=== PATIENT | male | born 1950 | race Caucasian/White ===

== ENCOUNTER 2016-10-31 22:07 | Inpatient (IN) | payer OTHER ==
[~2016-10-31] VITALS: Ht 177.8 cm; Wt 115.2 kg
[~2016-10-31 22:07] MED LIST: ADVIN25/60 INH; ALBUAER2; ALLO100T57 PO; AMLO-110 PO; CIPR0.3S4 OP; COLC0.6T54 PO; DIAZ10TA3 PO; HYDR2TAB2 PO; LINE1TAB6 PO; METF-384 PO; METO-217 PO; SIMV20TA2 PO
[2016-11-01 04:20] VITALS: BP 187/98; PULSE 84; O2SAT 92
[2016-11-01] MEDS ORDERED: ACETAMINOPHEN 325 MG TAB PO PRN (06:00)
[2016-11-01 07:13] LABS: HEMATOCRIT 36.2 % (42-52); MEAN CELL VOLUME 92.8 fL (80-100); MEAN CORPUSCULAR HGB CONC 33.4 g/dl (32-36); MEAN PLATELET VOLUME 10.8 fL (7.4-10.4); PLATELET COUNT 164 K/uL (130-400); WHITE BLOOD COUNT 5.59 K/uL (4.8-10.8)
[2016-11-01 07:26] LABS: INR 1.1 (0.9-1.1); PARTIAL THROMBOPLASTIN RATIO 1.1; PROTHROMBIN TIME (PATIENT) 11.8 SECONDS (9.0-12.0)
[2016-11-01 07:49] VITALS: BP 158/85; PULSE 67; TEMP 36.7; O2SAT 96
[2016-11-01 07:56] LABS: ALT/SGPT 21 U/L (12-78); AST/SGOT 15 U/L (15-37); BLOOD UREA NITROGEN 45 mg/dl (7-18); BUN/CREATININE RATIO 15.5 (10-20); CALCIUM 8.6 mg/dl (8.5-10.1); CARBON DIOXIDE 25 mmol/L (21-32); CHLORIDE 106 mmol/L (98-107); GLUCOSE 226 mg/dl (70-99); MAGNESIUM 2.1 mg/dl (1.8-2.4); POTASSIUM 4.5 mmol/L (3.5-5.1); SODIUM 141 mmol/L (136-145)
[2016-11-01 07:58] LABS: ALB/GLOB RATIO 1.1 (0.9-2); ALKALINE PHOSPHATASE 45 U/L (45-117)
[2016-11-01] MEDS ORDERED: OXYCODONE/ACETAMINOPHEN 10/325MG TAB PO ONE (08:46)
[2016-11-01] MEDS ORDERED: DIAZ10TA PO (08:50)
[2016-11-01] MEDS ORDERED: OXYC-88 PO (08:50)
[2016-11-01] MEDS ORDERED: INSULIN GLARGINE SOLOSTAR 100 UNITS/ML 3 ML PEN SC ONE ×2 (08:51→20:30)
[2016-11-01] MEDS ORDERED: PATIENT'S HEIGHT AND/OR WEIGHT NEEDED SCH (09:00)
[2016-11-01 09:04] VITALS: BMI 34.6
[2016-11-01] MEDS: SODIUM CHLORIDE 0.9% 1000ML 1,000 ML IV SCH ×2 (09:04→19:01)
[2016-11-01] MEDS ORDERED: AMLO-114 PO (09:08)
[2016-11-01] MEDS ORDERED: FENO145T26 PO (09:08)
[2016-11-01] MEDS ORDERED: ASPI-232 PO (09:08)
[2016-11-01] MEDS ORDERED: CLR10 PO (09:08)
[2016-11-01] MEDS ORDERED: LPT/20 PO (09:08)
[2016-11-01] MEDS ORDERED: PREG300C PO (09:08)
[2016-11-01] MEDS ORDERED: GLIP10TA10 PO (09:08)
[2016-11-01] MEDS ORDERED: VNTHFA/IN INH (09:08)
[2016-11-01] MEDS ORDERED: TORS5TAB10 PO (09:10)
[2016-11-01] MEDS ORDERED: AMLODIPINE BESYLATE 5 MG TAB PO ONE (09:12)
[2016-11-01] MEDS ORDERED: LORATADINE 10 MG TAB PO ONE (09:12)
[2016-11-01] MEDS ORDERED: FENOFIBRATE 145 MG TAB PO ONE (09:12)
[2016-11-01] MEDS ORDERED: METOPROLOL SUCC 50MG EXT REL TAB PO ONE (09:12)
[2016-11-01] MEDS ORDERED: PREGABALIN 150 MG CAP PO ONE (09:12)
[2016-11-01] MEDS ORDERED: ALBUTEROL HFA 8 GM INHALER INH ONE (09:12)
[2016-11-01] MEDS ORDERED: FLUTICASONE/SALMETEROL 250/50 (ADVAIR) 14 PUFF/1 INHALER INH ONE (09:12)
[2016-11-01] MEDS ORDERED: ATORVASTATIN 20 MG TAB PO ONE (09:12)
[2016-11-01] MEDS ORDERED: GLUCAGON FOR INJ 1 MG VIAL SQ PRN (09:15)
[2016-11-01] MEDS ORDERED: GLUCOSE 40% GEL 15 GM TUBE PO PRN (09:15)
[2016-11-01] MEDS ORDERED: GLUCOSE 10 TABS/TUBE PO PRN (09:15)
[2016-11-01] MEDS ORDERED: DEXTROSE 50% 50 ML SYR IV PRN (09:15)
--- NOTE | 2016-11-01 09:25 | History and Physical ---
History & Physical Date & Time of Service: Nov 01, 2016 at 09:24 . Chief Complaint: acute kidney injury . Primary Care Physician: Jack Stephenson MD . History of Present Illness Source: patient, clinic records, hospital records 66 YO male followed by Dr. Jack Biggs in [place]. History of ischemic heart disease, hypertension, DM, CKD III, and other problems noted below. Status post total colectomy for C difficile colitis with chronic high-volume stool output via ileostomy. Hospitalized at [facility] 1-2 weeks ago. Presented to ED with epistaxis and was admitted for several days. Patient unable to provide details of hospital stay. Presented to ED at [facility] last evening with recurrent epistaxis. Right nostril cauterized and packed. Labs revealed elevated serum creatinine of 3.43, significantly higher than his baseline. Patient was transferred to [facility] for further evaluation and management of his acute kidney injury. Status post total colectomy for C difficile colitis with chronic high-volume stool output via ileostomy. Patient states that he has been advised to drink at least 60 oz of fluids per day, but he has trouble keeping up with the recommended amount. Apparently started on torsemide when he was discharged from the hospital last week. Labs reviewed from [facility]. Baseline creatinine appears to run 1.3 - 1.7. Pt does not use any NSAID's, SAMMY inhibitors, ARB's. . Past Medical/Surgical History Medical Problems: (1) Alcohol abuse Status: Chronic (2) Aortic aneurysm Status: Chronic (3) C. difficile colitis Permanent Comment: s/p colectomy Status: Chronic (4) CAD (coronary artery disease) Status: Chronic (5) CKD (chronic kidney disease), stage III Status: Chronic (6) COPD (chronic obstructive pulmonary disease) Status: Chronic (7) Depression Status: Chronic (8) Diabetic neuropathy Status: Chronic (9) DM2 (diabetes mellitus, type 2) Status: Chronic (10) Gout Status: Chronic (11) History of left heart catheterization (LHC) Status: Chronic (12) HLD (hyperlipidemia) Status: Chronic (13) HTN (hypertension) Status: Chronic (14) Pacemaker Status: Chronic (15) PVD (peripheral vascular disease) Status: Chronic (16) FREIDA (renal artery stenosis) Status: Chronic (17) SSS (sick sinus syndrome) Status: Chronic (18) Tobacco abuse Status: Chronic Surgical Problems: (1) Colostomy status Status: Chronic (2) History of back surgery Status: Chronic . Family History noncontributory . Social History Smoking Status: Current Every Day Smoker Alcohol Use: heavy consumption in past, none recently Marital Status: Immunizations History of Influenza Vaccine: No History of Tetanus Vaccine?: Unknown History of Pneumococcal: Yes History of Hepatitis B Vaccine: Unknown Allergies Coded Allergies: Penicillins (Verified Allergy, Severe, "i ", 07/01/13) Home Medications Scheduled Albuterol Hfa (Ventolin Hfa), 2 PUFFS INH QID Allopurinol (Zyloprim), 200 MG PO DAILY Amlodipine (Norvasc), 10 MG PO DAILY Aspirin (Aspir-81), 81 MG PO DAILY Atorvastatin (Atorvastatin Calcium), 20 MG PO DAILY Fenofibrate (Tricor ), 145 MG PO DAILY Fluticasone Prop/Salmeterol (Advair Diskus 250/50 60 Dose), 1 PUFF INH BID Glipizide (Glipizide), 20 MG PO DAILY Loratadine (Claritin), 10 MG PO DAILY Metformin Hcl (Glucophage), 1,000 MG PO BID Metoprolol Succinate (Toprol Xl), 50 MG PO DAILY Oxycodone/Acetaminophen 10MG/325MG (Oxycodone/Acetaminophen 10MG/325MG), 1 TAB PO TID Pregabalin (Lyrica), 300 MG PO BID Torsemide (Torsemide), 5 MG PO DAILY Scheduled PRN Diazepam (Valium), 10 MG PO BID PRN for Anxiety Review of Systems Constitutional: No fever, No weight loss Eyes: No diplopia, No discharge, No worsening of vision ENT: No hearing loss Respiratory: + shortness of breath, No cough Cardiovascular: + chest pain (occasional), + edema Abdomen: + problem reported (high output via ileostomy), No nausea, No pain, No vomiting Musculoskeletal: + joint pain Genitourinary - Male: No dysuria, No hematuria Neurologic: + problem reported (chronic headaches) Psychiatric: + depression symptoms Endocrine: + excessive thirst, + excessive urination Hematologic / Lymphatic: + abnormal bleeding/bruising (bruises easilyi) Integumentary: No new/changing skin lesions, No rash Physical Exam Vital Signs Date Time Temp Pulse Resp B/P Pulse Ox O2 Delivery O2 Flow Rate FiO2 11/01/16 07:49 36.7 67 22 158/85 96 Room Air 11/01/16 04:20 84 20 187/98 92 Room Air General Appearance: WD/WN, no apparent distress Head: normocephalic, atraumatic Eyes: normal inspection, PERRL, EOMI, sclerae normal ENT: normal ENT inspection, hearing grossly normal, pharynx normal, + pertinent finding (edentulous; right nostril packed) Neck: supple, no adenopathy, thyroid normal, no JVD, trachea midline Respiratory/Chest: no respiratory distress, no accessory muscle use, + pertinent finding (diffuse mild wheezing) Cardiovascular: regular rate, rhythm, no gallop, no JVD, no murmur, + pertinent finding (trace pretibial edema) Abdomen/GI: normal bowel sounds, non tender, soft, no organomegaly Extremities/Musculoskelatal: normal inspection, no calf tenderness 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 (PERRL, EOMI, no facial palsy), no motor/sensory deficits (grossly intact), alert, oriented x 3, + depressed affect Skin: normal color, warm/dry, no rash Lymphatic: no adenopathy Diagnostics Laboratory Results Results Past 24 Hours Test 11/01/16 05:55 11/01/16 06:45 Range/Units White Blood Count 5.59 4.8-10.8 K/uL Red Blood Count 3.90 4.7-6.1 M/uL Hemoglobin 12.1 14.0-18.0 g/dL Hematocrit 36.2 42-52 % Mean Corpuscular Volume 92.8 80-100 fL Mean Corpuscular Hemoglobin 31.0 25-34 pg Mean Corpuscular Hemoglobin Concent 33.4 32-36 g/dl RDW Standard Deviation 47.5 36.4-46.3 fL RDW Coefficient of Variation 14.1 11.5-14.5 % Platelet Count 164 130-400 K/uL Mean Platelet Volume 10.8 7.4-10.4 fL Prothrombin Time 11.8 9.0-12.0 SECONDS Prothromb Time International Ratio 1.1 0.9-1.1 Activated Partial Thromboplast Time 28.0 21.0-31.0 SECONDS Partial Thromboplastin Ratio 1.1 Sodium Level 141 136-145 mmol/L Potassium Level 4.5 3.5-5.1 mmol/L Chloride Level 106 98-107 mmol/L Carbon Dioxide Level 25 21-32 mmol/L Anion Gap 10.0 3-11 mmol/L Blood Urea Nitrogen 45 7-18 mg/dl Creatinine 2.90 0.60-1.40 mg/dl Estimated GFR () 25.3 Estimated GFR (Non- 21.9 BUN/Creatinine Ratio 15.5 10-20 Random Glucose 226 70-99 mg/dl Calcium Level 8.6 8.5-10.1 mg/dl Magnesium Level 2.1 1.8-2.4 mg/dl Total Bilirubin 1.0 0.2-1 mg/dl Aspartate Amino Transf (AST/SGOT) 15 15-37 U/L Alanine Aminotransferase (ALT/SGPT) 21 12-78 U/L Alkaline Phosphatase 45 45-117 U/L Total Protein 6.4 6.4-8.2 gm/dl Albumin 3.3 3.4-5.0 gm/dl Globulin 3.1 2.5-4.0 gm/dl Albumin/Globulin Ratio 1.1 0.9-2 Diagnostic Radiology CXR pending. . EKG EKG pending . Impression Assessment and Plan ACUTE KIDNEY INJURY CKD III with baseline creatinine around 1.5. Creatinine last evening 3.43. TYREL may be due to volume depletion from combination of ileostomy output + diuretic therapy. Check FE Na. Check renal US. Hold torsemide. IV fluids. Consult Nephrology. EPISTAXIS 2 recent episodes of severe epistaxis. Right nostril cauterized / packed last night in [place] ED. Hold aspirin. Consult ENT for further recommendations. CORONARY ARTERY DISEASE Hold aspirin due to epistaxis. Continue metoprolol and amlodipine. HYPERTENSION Continue metoprolol and amlodipine. COPD Continue bronchodilators. DM TYPE 2 Hold oral agents due to acute illness / TYREL. Check Hgb A1C. Lantus / NovoLog per protocol. GOUT Continue allopurinol. CHRONIC PAIN Continue usual meds. DEPRESSION Offered Psychiatry consultation; patient declines. ANXIETY Continue diazepam PRN. HISTORY OF ALCOHOL ABUSE Denies recent consumption. Follow for signs / symptoms of withdrawal. VTE PROPHYLAXIS No anticoagulants due to epistaxis. SCD's. Ambulate. RESUSCITATION STATUS Full code. INCOMPLETE DATA Records from [facility] requested. DISPOSITION Admitted to Med-Surg Unit. Expected discharge to home. Medical follow-up with Dr. Stephenson. . VTE Prophylaxis VTE Risk Assessment Done? Y/N: Yes Risk Level: Moderate Given or contraindicated: SCD's Additional Copies To Jack Stephenson M.D.
--- NOTE | 2016-11-01 09:47 | NEPHROLOGY CONSULTATION ---
DATE OF CONSULTATION: 11/01/2016 ATTENDING OF RECORD: Dr. Deleon. REASON FOR CONSULTATION: TYREL. HISTORY OF PRESENT ILLNESS: This is a 66-year-old male who does not actively follow with nephrology who was seen by his family doctor yesterday after a recent hospitalization at [facility] for epistaxis, acute renal failure on chronic kidney disease, and chest pain. When speaking to the patient about his hospitalization, he appeared ambiguous in his statements and stated he was not exactly sure what they were doing. Patient presented with a nosebleed and they kept him there for 5 days and then discharged him. The patient does have a history of diabetes but states that he does not always take his medications, does not necessarily always checks his blood sugars as stating that he does not want the medications to control his life. The patient states he does have significant heart disease with a history of CABG in August 2016 as well as pacemaker placed in 2009. He is not sure why they placed the pacemaker and states that he is not on any blood thinners. The patient denies smoking cigarettes and just chews on cigars occasionally and does not inhale and occasionally takes NSAIDs for severe headache. When asked about alcohol intake, his reply was of course, but when further questioning, the patient was ambiguous with his statement of how much he actually was drinking and states that it depends on the day. When he was seen by Dr. Stephenson his family doctor yesterday, he started to have another nosebleed with feelings of chest heaviness and was sent to the Emergency Room. During the hospitalization in [place] last week, the patient's cardiac enzymes were elevated and chest x-ray showed cardiomegaly. He did require nasal packing to help control his nosebleed. The discharge summary from October 25 stated that they were treating him with Levaquin 500 mg a day and metoprolol 50 mg twice a day which are new medications. Creatinine was 1.79 on October 21, it was 3.14 on October 22, it was 2.8 on October 23, 2.59 on October 24, 2.43 on October 25, so overall, the patient's creatinine from October to April of 2016 was 1.5-1.7. The patient's creatinine went up to 2.2 on the , was 1.79, on the , went up to 3.14 on the , trended down to 2.43 on the , on the was back up to 3.7. An echo in 2013 showed an EF of 50-54% and inferior and inferolateral severe hypokinesis with grade 1 diastolic dysfunction. The patient was noted to have TYREL at [facility] yesterday and was transferred to [facility] for further evaluation. PAST MEDICAL HISTORY: An aortic aneurysm, history of heart disease with bypass and pacemaker, COPD, type 2 diabetes where patient admits he does not routinely check his blood sugars and/or routinely take his diabetic medications, gout, hypertension since the , peripheral vascular disease, history of renal artery stenosis, and sick sinus syndrome. PAST SURGICAL HISTORY: Bypass surgery, pacemaker placement, back surgery x2, and partial colectomy secondary to C. diff colitis after prolonged hospitalization in 2009 in [facility]. SOCIAL HISTORY: Smokes cigars occasionally. Positive alcohol use with a reply of course, but does not state how much he drinks. No drugs. He is . FAMILY HISTORY: No renal disease in family. REVIEW OF SYSTEMS: Positive fatigue. Denies shortness of breath. Denies chest pain. Denies nausea, vomiting. Denies diarrhea or constipation. Does have chronic swelling in the lower extremities. Has numbness on the left leg, status post back surgeries. All other review of systems otherwise negative. Denies any decrease in urination. No blood in the urine. CURRENT MEDICATIONS: Reviewed. HOME MEDICATIONS: Significant for torsemide 5 mg a day, Toprol-XL 50 mg b.i.d., metformin in which will be on hold, allopurinol 200 mg a day, Lyrica 300 mg twice a day, and Norvasc 10 mg a day. PHYSICAL EXAMINATION: VITAL SIGNS: Temperature 36.7, pulse 67, respiratory rate 22, blood pressure 158/85. Satting 96% on room air. GENERAL: Awake, alert, oriented x3. EYES: No scleral icterus. ENT: Moist mucous membranes. NECK: Supple. PULMONARY: Clear to auscultation. CARDIAC: Tender at chest area. The patient states tender ever since bypass surgery. 2/6 systolic murmur. ABDOMEN: Bowel sounds positive, soft, nontender. EXTREMITIES: +2 pitting edema in the lower extremities. NEUROLOGIC: Has some numbness on the left leg status post back surgery as well as numbness in the left arm status post shoulder surgery. DERMATOLOGIC: No rash or ulcers noted. LABORATORIES: White count is 5, H\T\H 12 and 36, platelet count is 164. Sodium level 141, potassium is 4.5, chloride is 106, bicarbonate is 25, BUN is 45, creatinine is 2.9, glucose 226, calcium is 8.6, mag is 2.1. T-bili is 1. Albumin is 3.3. INR is 1.1. Urine is pending. IMPRESSION AND PLAN: 1. Acute kidney injury on chronic kidney disease with baseline creatinine of 1.5-1.7 and had an insult with creatinine up to 3.14 during the previous hospitalization in [place] last week which improved to 2.43 and then went back up to 3.7 six days later and is currently 2.9 in the setting of diabetes, hypertension and recurrent nosebleeds. The patient likely has underlying chronic kidney disease from his diabetes and hypertension. The right kidney 12.1 cm and the left kidney 11.8 cm which were relatively normal on 2013. I am rechecking renal ultrasound. There is history of renal artery stenosis noted. The patient is a poor narrator and does not appear that he has ever had stents to his renal arteries; however, did have extensive workup in [facility] in 2009 as well as bypass surgery in [place] a year ago and perhaps during one of the cardiac catheterizations, the patient did have a possible stent and/or angioplasty. On review of his medical records, was unable to find any intervention for his renal arteries. We would like to check renal vascular Dopplers again during this hospitalization along with a renal ultrasound and I would like to check an echo his heart to see if there is any depressed ejection fraction, which may be contributing to his multiple episodes of acute kidney injury over the past week and a half. Unclear, the patient got any contrast during the [place] hospitalization. His creatinine did worse from 1.79 up to 3.14 in 24 hours; however, appeared to be trending back down. No indication for emergent dialysis at this time. 2. Gout. The patient is on allopurinol and we will check a uric acid level to help with assessment of volume status and we will adjust the allopurinol accordingly. 3. Diabetes, unclear how well controlled his diabetes is and we will check a hemoglobin A1c. The patient admits to not always taking his diabetic medications and/or checking his blood sugars. I would not give him any more metformin given his creatinine elevation up into the mid 2s. Unclear what his new baseline creatinine will be and would like to follow up with him in [place] after hospitalization to further workup his acute kidney injury/chronic kidney disease. For now, I would give a small rate of IV fluids while monitoring his lung status closely, does have edema in his lower extremities; however, I feel that the patient may have had some decreased perfusion to the kidneys. While at home may not necessarily be eating and drinking as well as he has had in the past. I appreciate consultation. HIWOT
[2016-11-01] MEDS: DIAZEPAM 5MG TAB PO PRN ×2 (09:52→21:31)
--- NOTE | 2016-11-01 10:29 | DIAGNOSTIC IMAGING REPORT ---
RENAL ULTRASOUND CLINICAL HISTORY: Acute kidney injury. COMPARISON STUDY: None. TECHNIQUE: Sonography of the kidneys and the urinary bladder was performed. FINDINGS: The right kidney measures 10.2 x 6 x 4.7 cm and the left measures 10.7 x 6.3 x 4.4 cm. There is no hydronephrosis. No calculi or masses are identified by sonography. Renal echogenicity, size and cortical thickness are normal. Neither ureteral jet was identified. Incidental note was made of possible fatty infiltration of the liver. IMPRESSION: No hydronephrosis. Unremarkable sonographic appearance of the kidneys. Electronically signed by: Maximilian Aguilar M.D. 11/01/2016 10:28 AM Dictated Date/Time: 11/01/2016 10:24 AM
--- NOTE | 2016-11-01 10:34 | DIAGNOSTIC IMAGING REPORT ---
DOPPLER ULTRASOUND OF THE RENAL ARTERIES CLINICAL HISTORY: Acute renal insufficiency. COMPARISON STUDY: Renal ultrasound dated 11/01/2016. TECHNIQUE: Doppler sonography of the renal arteries was performed to assess renal artery stenosis. Images are reviewed in the transverse and longitudinal planes. The examination is degraded by suboptimal patient cooperation and inability to breath-hold. FINDINGS: The kidneys demonstrate cortical atrophy and are without hydronephrosis. On the right, intrarenal arterial resistive indices range from 0.74 to 0.83. Intrarenal arterial waveforms are normal with brisk upstrokes. The proximal right renal artery was not well visualized. The right renal arterial waveform is normal, and velocities within the right renal artery measure up to 101 cm/sec. The right renal vein is patent. On the left, intrarenal arterial resistive indices range from 0.82 to 0.5. Intrarenal arterial waveforms are normal with brisk upstrokes. The proximal left renal artery was not visualized. The left renal arterial waveform is normal, and velocities within the left renal artery measure up to 102 cm/sec. The left renal vein is patent. The abdominal aorta is patent. Velocities within the abdominal aorta measure up to 82 cm/s. IMPRESSION: There is no sonographic evidence of renal artery stenosis. See above. Electronically signed by: Zak Gamble M.D. 11/01/2016 10:33 AM Dictated Date/Time: 11/01/2016 10:31 AM
[2016-11-01 10:55] VITALS: BP 149/79; PULSE 70
[2016-11-01] MEDS ORDERED: OXYCODONE/ACETAMINOPHEN 10/325MG TAB PO SCH (12:00)
[2016-11-01] MEDS: ALBUTEROL HFA 8 GM INHALER INH SCH ×3 (12:08→21:08)
[2016-11-01] MEDS ORDERED: PERFLUTREN LIPID MICROSPHERE (DEFINITY) IV ONE (12:09)
[2016-11-01] MEDS ORDERED: NITROGLYCERIN 0.4 MG SL PER TAB CHARGE SL PRN (13:15)
[2016-11-01] MEDS: INSULIN ASPART 100 UNITS/ML 3 ML PEN SC SCH ×3 (13:49→21:07)
[2016-11-01] MEDS: CLONIDINE HCL 0.1 MG TAB PO PRN (14:43)
--- NOTE | 2016-11-01 14:52 | ECHOCARDIOGRAM REPORT ---
*NOTICE TO RECEIVING [employer]Y This information is strictly Confidential and protected under [place] law. [place] law prohibits you from making any further disclosure of this information unless further disclosure is expressly permitted by the written consent of the person to whom it pertains or is authorized by law. A general authorization for the release of medical or other information is not sufficient for this purpose. Hospital accepts no responsibility if the information is made available to any other person, INCLUDING THE PATIENT. Interpretation Summary * Name: ASH MONIQUE Study Date: 11/01/2016 12:44 PM BP: 158/85 mmHg * Patient Location: [facility] HR: 67 * : 1950 (M/d/yyyy) Gender: Male Height: 70 in * Age: 66 yrs Ethnicity: CA Weight: 241 lb * Performed By: Rose Gupta RDCS * * Reason For Study: CHEST PAIN * BSA: 2.3 m2 * History: CHEST PAIN, HX OF CABG, HX OF PACEMAKER, CHECK EF * The study was technically adequate. * Compared to prior study, there is no significant change. * -- Conclusions -- * Ejection Fraction = 55-60%. * There is mild concentric left ventricular hypertrophy. * Apical wall motion abnormality may reflect pacemaker activation. * There is mild mitral regurgitation. * Mild aortic root dilatation. * Diastolic dysfunction, Grade II (pseudonormalization pattern). Procedure Details * A contrast injection of Definity was performed to improve assessment of LV function. * Contrast was injected into an intravenous site in the right arm. * One vial of Definity ultrasound contrast was diluted in normal saline to a total volume of 10 ml. A total of '2' ml of solution was administered during imaging. * Lot # [id number] of Definity utilized for procedure. * Expiration date SEP 21. * The attending nurse who injected the contrast agent was KEVYN THURMAN. * A complete two-dimensional transthoracic echocardiogram was performed (2D, M-mode, Doppler and color flow Doppler). Left Ventricle * The left ventricle is normal in size. * There is no thrombus. * There is mild concentric left ventricular hypertrophy. * Ejection Fraction = 55-60%. * Left ventricular systolic function is normal. * Apical wall motion abnormality may reflect pacemaker activation. Right Ventricle * The right ventricle is normal size. * The right ventricular systolic function is normal as assessed by tricuspid annular plane systolic excursion (TAPSE) (normal >1.5 cm). Atria * The left atrial size is normal. * Right atrial size is normal. * There is no evidence of atrial septal defect, but resolution does not allow assessment for a patent foramen ovale. Mitral Valve * The mitral valve is normal. * The mitral valve leaflets appear thickened, but open well. * There is no mitral valve stenosis. * There is mild mitral regurgitation. Tricuspid Valve * The tricuspid valve is normal. * There is no tricuspid stenosis. * Significant tricuspid regurgitation is absent. Aortic Valve * The aortic valve is trileaflet. * Aortic stenosis is absent. * There is no significant aortic regurgitation. Pulmonic Valve * The pulmonary valve is not well seen, but the Doppler examination is normal without significant regurgitation or stenosis. Great Vessels * Mild aortic root dilatation. Pericardium/Pleural * There is no pericardial effusion. Great Vessels * Normal inferior vena cava diameter and respiratory variation suggests normal central venous pressure. Left Ventricular Diastolic Function * Diastolic dysfunction, Grade II (pseudonormalization pattern). MMode 2D Measurements and Calculations IVSd 1.3 cm IVSs 1.9 cm LVIDd 5.7 cm LVIDs 4.4 cm LVPWd 1.3 cm LVPWs 1.6 cm IVS/LVPW 1.0 FS 22.4 % EDV(Teich) 161.5 ml ESV(Teich) 89.7 ml EF(Teich) 44.4 % EDV(cubed) 187.4 ml ESV(cubed) 87.7 ml EF(cubed) 53.2 % % IVS thick 49.6 % % LVPW thick 27.5 % LV mass(C)d 307.8 grams LV mass(C)dI 136.2 grams/m\S\2 LV mass(C)s 339.6 grams LV mass(C)sI 150.3 grams/m\S\2 SV(Teich) 71.8 ml SI(Teich) 31.8 ml/m\S\2 SV(cubed) 99.7 ml SI(cubed) 44.1 ml/m\S\2 Ao root diam 4.4 cm Ao root area 14.9 cm\S\2 LA dimension 3.3 cm LA/Ao 0.76 LVAd ap4 40.9 cm\S\2 LVLd ap4 10.0 cm EDV(MOD-sp4) 139.0 ml EDV(sp4-el) 141.4 ml LVAs ap4 25.0 cm\S\2 LVLs ap4 8.7 cm ESV(MOD-sp4) 62.9 ml ESV(sp4-el) 61.0 ml EF(MOD-sp4) 54.7 % EF(sp4-el) 56.8 % LVAd ap2 32.9 cm\S\2 LVLd ap2 9.4 cm EDV(MOD-sp2) 99.0 ml EDV(sp2-el) 98.2 ml LVAs ap2 20.3 cm\S\2 LVLs ap2 8.2 cm ESV(MOD-sp2) 43.1 ml ESV(sp2-el) 42.8 ml EF(MOD-sp2) 56.5 % EF(sp2-el) 56.4 % LVLd %diff -7.08 % EDV(MOD-bp) 122.1 ml LVLs %diff -6.18 % ESV(MOD-bp) 53.5 ml EF(MOD-bp) 56.2 % SV(MOD-sp4) 76.1 ml SI(MOD-sp4) 33.7 ml/m\S\2 SV(MOD-sp2) 55.9 ml SI(MOD-sp2) 24.7 ml/m\S\2 SV(MOD-bp) 68.6 ml SI(MOD-bp) 30.4 ml/m\S\2 SV(sp4-el) 80.4 ml SI(sp4-el) 35.6 ml/m\S\2 SV(sp2-el) 55.4 ml SI(sp2-el) 24.5 ml/m\S\2 Doppler Measurements and Calculations MV E max azael 104.3 cm/sec MV A max azael 96.9 cm/sec MV E/A 1.1 MV dec time 0.20 sec Ao V2 max 109.1 cm/sec Ao max PG 4.8 mmHg Ao max PG (full) 0.85 mmHg LV V1 max PG 3.9 mmHg LV V1 max 98.9 cm/sec
[2016-11-01 15:00] LABS: URINE APPEARANCE CLEAR (CLEAR); URINE BILIRUBIN NEG (NEG); URINE COLOR YELLOW; URINE EPITHELIAL CELL AUTO 0-5 /lpf (0-5); URINE NITRITE NEG (NEG); URINE PH 6.5 (4.5-7.5); URINE SPECIFIC GRAVITY 1.015 (1.000-1.030); UROBILINOGEN NEG (NEG); ZZUR CULT IF INDIC CLEAN CATCH NO
[2016-11-01 15:01] VITALS: BP 166/77; PULSE 74; TEMP 36.8; O2SAT 96
[2016-11-01 15:04] LABS: MANUAL MICROSCOPIC REQUIRED? NO; REVIEW REQ? NO
--- NOTE | 2016-11-01 15:21 | Progress Note ---
Subjective Date of Service: Nov 01, 2016. Subjective Pt evaluation today including: conversation w/ patient No bleeding from his nose since being packed last night. Objective Vital Signs Packing in place right nostril. No active bleeding. Date Time Temp Pulse Resp B/P Pulse Ox O2 Delivery O2 Flow Rate FiO2 11/01/16 15:01 36.8 74 20 166/77 96 Room Air 11/01/16 10:55 70 149/79 11/01/16 08:00 Room Air 11/01/16 07:49 36.7 67 22 158/85 96 Room Air 11/01/16 04:20 84 20 187/98 92 Room Air Physical Exam General Appearance: no apparent distress Laboratory Results Last 24 Hours Test 11/01/16 06:45 11/01/16 11:58 11/01/16 14:30 White Blood Count 5.59 K/uL Red Blood Count 3.90 M/uL Hemoglobin 12.1 g/dL Hematocrit 36.2 % Mean Corpuscular Volume 92.8 fL Mean Corpuscular Hemoglobin 31.0 pg Mean Corpuscular Hemoglobin Concent 33.4 g/dl RDW Standard Deviation 47.5 fL RDW Coefficient of Variation 14.1 % Platelet Count 164 K/uL Mean Platelet Volume 10.8 fL Prothrombin Time 11.8 SECONDS Prothromb Time International Ratio 1.1 Activated Partial Thromboplast Time 28.0 SECONDS Partial Thromboplastin Ratio 1.1 Sodium Level 141 mmol/L Potassium Level 4.5 mmol/L Chloride Level 106 mmol/L Carbon Dioxide Level 25 mmol/L Anion Gap 10.0 mmol/L Blood Urea Nitrogen 45 mg/dl Creatinine 2.90 mg/dl Estimated GFR () 25.3 Estimated GFR (Non- 21.9 BUN/Creatinine Ratio 15.5 Random Glucose 226 mg/dl Calcium Level 8.6 mg/dl Magnesium Level 2.1 mg/dl Total Bilirubin 1.0 mg/dl Aspartate Amino Transf (AST/SGOT) 15 U/L Alanine Aminotransferase (ALT/SGPT) 21 U/L Alkaline Phosphatase 45 U/L Total Protein 6.4 gm/dl Albumin 3.3 gm/dl Globulin 3.1 gm/dl Albumin/Globulin Ratio 1.1 Bedside Glucose 225 mg/dl Urine Color YELLOW Urine Appearance CLEAR Urine pH 6.5 Urine Specific [place] 1.015 Urine Protein NEG Urine Glucose (UA) 3+ Urine Ketones NEG Urine Occult Blood NEG Urine Nitrite NEG Urine Bilirubin NEG Urine Urobilinogen NEG Urine Leukocyte Esterase NEG Urine WBC (Auto) 0 /hpf Urine RBC (Auto) 0-4 /hpf Urine Hyaline Casts (Auto) 0 /lpf Urine Epithelial Cells (Auto) 0-5 /lpf Urine Bacteria (Auto) NEG Assessment and Plan Patient with multiple medical problems with the most acute being acute renal failure. He remains hypertensive and his Platelet count is 164. I will plan to remove his packing on 11/03/15, and then recommend that he be observed until 11/04/16. If he doesn't bleed, then he may be discharged (from an ENT perspective; he may have other comorbidities that mandate continued hospitalization. SHOULD HE BLEED AGAIN, I WILL RECOMMEND FOR TRANSFER TO [facility] FOR EMBOLIZATION BY INTERVENTIONAL RADIOLGY.
[2016-11-01 16:00] VITALS: O2SAT 96
[2016-11-01] MEDS: OXYCODONE/ACETAMINOPHEN 10/325MG TAB PO SCH ×2 (16:04→21:09)
[2016-11-01] MEDS ORDERED: INSULIN GLARGINE SOLOSTAR 100 UNITS/ML 3 ML PEN SC SCH (20:00)
[2016-11-01] MEDS: FLUTICASONE/SALMETEROL 250/50 (ADVAIR) 14 PUFF/1 INHALER INH SCH (21:07)
[2016-11-01] MEDS: PREGABALIN 150 MG CAP PO SCH (21:08)
[2016-11-01] MEDS: DOXYCYCLINE HYCLATE 100 MG CAP PO SCH (21:09)
[2016-11-01] MEDS: INSULIN GLARGINE SOLOSTAR 100 UNITS/ML 3 ML PEN SC SCH (21:30)
--- NOTE | 2016-11-01 22:47 | Progress Note ---
Medicine Progress Note Date & Time of Visit: Nov 01, 2016 at 15:39. Subjective The patient refuses to give me any history today. He states he doesn't know anything--he doesn't know if he is short of breath or if he has chest pain. He is cursing at me and yelling--he became angry when I asked him if his blood pressure usually runs high. History was obtained from the notes, taken together with the physical exam ( which was allowed), and other objective data. Objective Last 8 Hrs Date Time Temp Pulse Resp B/P Pulse Ox O2 Delivery O2 Flow Rate FiO2 11/01/16 15:01 36.8 74 20 166/77 96 Room Air 11/01/16 10:55 70 149/79 11/01/16 08:00 Room Air 11/01/16 07:49 36.7 67 22 158/85 96 Room Air Physical Exam: GEN: WNWD, in no acute distress, alert and appropriate, appears agitated HEENT: NC/AT, normal sclerae, nasal packing in place. CARDIO: reg rate, S1/2 heard without m/g/r LUNGS: CTA bilaterally, no crackles, rales or wheezes, good diaphragmatic excursion ABD: soft, non-tender, non-distended, no rebound or guarding EXTREMITY: RP and DP palpable 2+ bilat, no LE swelling or edema, extremities are warm and well-perfused NEURO: CN 2-12 grossly intact, no gross focal deficits. MUSC: developed musculature, moves all extremities equally. SKIN: warm and dry Laboratory Results: Last 24 Hours Test 11/01/16 06:45 11/01/16 11:58 11/01/16 14:30 White Blood Count 5.59 K/uL Red Blood Count 3.90 M/uL Hemoglobin 12.1 g/dL Hematocrit 36.2 % Mean Corpuscular Volume 92.8 fL Mean Corpuscular Hemoglobin 31.0 pg Mean Corpuscular Hemoglobin Concent 33.4 g/dl RDW Standard Deviation 47.5 fL RDW Coefficient of Variation 14.1 % Platelet Count 164 K/uL Mean Platelet Volume 10.8 fL Prothrombin Time 11.8 SECONDS Prothromb Time International Ratio 1.1 Activated Partial Thromboplast Time 28.0 SECONDS Partial Thromboplastin Ratio 1.1 Sodium Level 141 mmol/L Potassium Level 4.5 mmol/L Chloride Level 106 mmol/L Carbon Dioxide Level 25 mmol/L Anion Gap 10.0 mmol/L Blood Urea Nitrogen 45 mg/dl Creatinine 2.90 mg/dl Estimated GFR () 25.3 Estimated GFR (Non- 21.9 BUN/Creatinine Ratio 15.5 Random Glucose 226 mg/dl Calcium Level 8.6 mg/dl Magnesium Level 2.1 mg/dl Total Bilirubin 1.0 mg/dl Aspartate Amino Transf (AST/SGOT) 15 U/L Alanine Aminotransferase (ALT/SGPT) 21 U/L Alkaline Phosphatase 45 U/L Total Protein 6.4 gm/dl Albumin 3.3 gm/dl Globulin 3.1 gm/dl Albumin/Globulin Ratio 1.1 Bedside Glucose 225 mg/dl Urine Color YELLOW Urine Appearance CLEAR Urine pH 6.5 Urine Specific [place] 1.015 Urine Protein NEG Urine Glucose (UA) 3+ Urine Ketones NEG Urine Occult Blood NEG Urine Nitrite NEG Urine Bilirubin NEG Urine Urobilinogen NEG Urine Leukocyte Esterase NEG Urine WBC (Auto) 0 /hpf Urine RBC (Auto) 0-4 /hpf Urine Hyaline Casts (Auto) 0 /lpf Urine Epithelial Cells (Auto) 0-5 /lpf Urine Bacteria (Auto) NEG Urine Random Creatinine 78.0 mg/dl Urine Random Sodium 86 mEq/L Assessment & Plan 66 yoM recently released from [facility], presents to [facility] as a transfer from ER for recurrent epistaxis with acute renal failure. ACUTE KIDNEY INJURY CKD III with baseline creatinine around 1.5. Creatinine-->3.43-->2.9 TYREL may be due to volume depletion from combination of ileostomy output + diuretic therapy. FeNa was >2% Hold torsemide. IV fluids. Consult Nephrology. EPISTAXIS 2 recent episodes of severe epistaxis. Right nostril cauterized / packed last night in [place] ED. Hold aspirin. ENT plans to pull out sun am Doxy to cover staph/strep species while nasal packing is in place and while we are hospitalized If patient rebleeds, he will be transferred to [place]. ETOH USE [place] use of benzos as needed Diazepam PRN CORONARY ARTERY DISEASE Hold aspirin due to epistaxis. Continue metoprolol and amlodipine. HYPERTENSION Continue metoprolol and amlodipine. COPD Continue bronchodilators. DM TYPE 2 Hold oral agents due to acute illness / TYREL. Hgb [id number] Lantus / NovoLog per protocol. GOUT Continue allopurinol. CHRONIC PAIN Continue usual meds. DEPRESSION Offered Psychiatry consultation; patient declines. ANXIETY Continue diazepam PRN. HISTORY OF ALCOHOL ABUSE Denies recent consumption. Follow for signs / symptoms of withdrawal. VTE PROPHYLAXIS No anticoagulants due to epistaxis. SCD's. Ambulate. RESUSCITATION STATUS Full code. INCOMPLETE DATA Records from [facility] requested. DISPOSITION Admitted to Med-Surg Unit. Expected discharge to home. Medical follow-up with Dr. Stephenson. Current Inpatient Medications: Current Inpatient Medications Medications (Trade) Dose Ordered Sig/All Route Start Time Stop Time Status Last Admin Dose Admin Acetaminophen 650 mg 650 mg Q4H PRN PO 11/01/16 06:00 12/01/16 05:59 Sodium Chloride (Nss 1000ml) 1,000 ml @ 100 mls/hr Q10H IV 11/01/16 09:00 12/01/16 08:59 11/01/16 09:04 100 MLS/HR Diazepam (Valium Tab) 10 mg BID PRN PO 11/01/16 09:00 12/01/16 08:59 11/01/16 09:52 10 MG Oxycodone/ Acetaminophen (Percocet 10-325MG Tab) 1 tab TID PO 11/01/16 14:00 11/15/16 13:59 Insulin Glargine (Lantus Solostar Pen) 10 unit BID SC 11/01/16 20:00 12/01/16 19:59 Insulin Aspart (novoLOG ASPART) SLIDING SCALE G... ACHS SC 11/01/16 11:00 12/01/16 10:59 11/01/16 13:49 7 UNITS Glucose (Glucose 40% Gel) 15-30 GRAMS 15 GRAMS... UD PRN PO 11/01/16 09:15 12/01/16 09:14 Glucose (Glucose Chew Tab) 4-8 Tablets 4 Tabl... UD PRN PO 11/01/16 09:15 12/01/16 09:14 Dextrose (Dextrose 50% 50ML Syringe) 25-50ML OF 50% DW IV FOR... UD PRN IV 11/01/16 09:15 12/01/16 09:14 Glucagon (Glucagon Inj) 1 mg UD PRN SQ 11/01/16 09:15 12/01/16 09:14 Albuterol (Ventolin Hfa Inhaler) 2 puffs QID INH 11/01/16 12:00 12/01/16 11:59 11/01/16 12:08 2 PUFFS Amlodipine Besylate (Norvasc Tab) 10 mg DAILY PO 11/02/16 08:00 12/01/16 07:59 Atorvastatin Calcium (Lipitor Tab) 20 mg DAILY PO 11/02/16 08:00 12/01/16 07:59 Fenofibrate (Tricor Tab) 145 mg DAILY PO 11/02/16 08:00 12/01/16 07:59 Salmeterol Xinafoate/ Fluticasone (Advair Diskus 250/50 Inh) 1 puff BID INH 11/01/16 20:00 12/01/16 19:59 Loratadine (Claritin Tab) 10 mg DAILY PO 11/02/16 08:00 12/01/16 07:59 Metoprolol Succinate (Toprol Xl Tab) 50 mg DAILY PO 11/02/16 08:00 12/01/16 07:59 Pregabalin (Lyrica Cap) 300 mg BID PO 11/01/16 20:00 12/01/16 19:59 Allopurinol (Zyloprim Tab) 100 mg DAILY PO 11/02/16 08:00 12/02/16 07:59 Nitroglycerin (Nitrostat Tab) 0.4 mg PRN PRN SL 11/01/16 13:15 12/01/16 13:14 Clonidine HCl (Catapres Tab) 0.1 mg Q4H PRN PO 11/01/16 13:15 12/01/16 13:14 11/01/16 14:43 0.1 MG
[2016-11-02] VITALS (8 sets, daily range): BP systolic 124–165; BP diastolic 71–100; PULSE 64–81; TEMP 36.5–36.8; O2SAT 94–98
[2016-11-02] MEDS ORDERED: INSULIN ASPART 100 UNITS/ML 3 ML PEN SC ONE (01:00)
--- NOTE | 2016-11-02 02:09 | ENT CONSULTATION ---
DATE OF CONSULTATION: 11/01/2016 DOCTOR REQUESTING CONSULTATION: Dr. Carmen Moyer and Dr. Danyel Deleon. INDICATION FOR CONSULTATION: Epistaxis, right nostril. I THOROUGHLY REVIEWED DR. MOYER'S COMPREHENSIVE HISTORY AND PHYSICAL AND I WILL NOT ADD TO CHART BREANNA. HISTORY OF PRESENT ILLNESS: I interviewed this patient in room 452 during the lunch hour on November 01. The patient is an extremely vague historian. His primary reason for admission is acute renal injury. In talking to him, it appeared that he was admitted at [facility] from October 20 through October 25. He was admitted for epistaxis. He went home and he admitted to drinking beers. He does not really know how many he drank. On October 31, he had recurrence of right-sided epistaxis which required packing at [facility]. He was transferred to [facility] early in the morning of November 01 for acute renal injury with elevated creatinine of 3.4 compared to his baseline of 1.3-1.7. He has a host of serious medical conditions including heart disease, hypertension, and diabetes mellitus. 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 When I examined him, he was generally in good condition, although I will say he has a rather difficult personality. His packing was in place in his right nostril. There was no bleeding. PHYSICAL EXAMINATION: VITAL SIGNS: Blood pressure was elevated at his last readings and the highest blood pressure in the shift was 187/98 and the lowest was 149/79. ASSESSMENT AND PLAN: Epistaxis, right nostril, now stable via packing. I have talked with Dr. Carmen Moyer by phone. We both agreed that she will try to get his blood pressure down while attending to his renal injury. I will remove his packing on FridayNovember 03. If he does not bleed, then he may be discharged to home on November 04 with conservative measures that I will provide to him. Should he rebleed, Dr. Moyer and I have discussed the need for transfer to [place] where interventional radiology will perform embolization. [facility]ENTERAnirudh
[2016-11-02] MEDS: SODIUM CHLORIDE 0.9% 1000ML 1,000 ML IV SCH (05:04)
--- NOTE | 2016-11-02 07:07 | DIAGNOSTIC IMAGING REPORT ---
CHEST ONE VIEW PORTABLE CLINICAL HISTORY: acute kidney injury COMPARISON STUDY: 08/08/2013 FINDINGS: The right internal jugular catheter has been removed. There is a left subclavian dual-chamber central venous pacemaker. Heart is enlarged. There is aortic tortuosity. There are postsurgical changes of midline sternotomy. There are postsurgical changes involve the left shoulder. There is radiographic evidence of mild congestive failure/fluid overload. There is no focal pulmonary consolidation. There are no significant pleural effusions.[ IMPRESSION: Cardiomegaly and radiographic evidence of mild congestive failure/fluid overload. Electronically signed by: Devang Fatima M.D. 11/02/2016 7:06 AM Dictated Date/Time: 11/02/2016 7:05 AM
[2016-11-02] MEDS ORDERED: ASPIRIN 81 MG ECTAB PO SCH (08:00)
[2016-11-02] MEDS ORDERED: INSULIN GLARGINE PER UNIT 15 UNITS in SYRINGE 0 ML SC SCH (08:00)
[2016-11-02] MEDS ORDERED: ALLOPURINOL 100 MG TAB PO SCH (08:00)
[2016-11-02 08:13] LABS: HEMATOCRIT 35.7 % (42-52); MEAN CELL VOLUME 93.7 fL (80-100); MEAN CORPUSCULAR HEMOGLOBIN 31.5 pg (25-34); MEAN CORPUSCULAR HGB CONC 33.6 g/dl (32-36); MEAN PLATELET VOLUME 11.3 fL (7.4-10.4); PLATELET COUNT 180 K/uL (130-400); RED BLOOD COUNT 3.81 M/uL (4.7-6.1)
[2016-11-02] MEDS: FLUTICASONE/SALMETEROL 250/50 (ADVAIR) 14 PUFF/1 INHALER INH SCH ×3 (08:14→21:00)
[2016-11-02] MEDS: FENOFIBRATE 145 MG TAB PO SCH (08:14)
[2016-11-02] MEDS: ALBUTEROL HFA 8 GM INHALER INH SCH ×5 (08:14→21:00)
[2016-11-02] MEDS: METOPROLOL SUCC 50MG EXT REL TAB PO SCH (08:15)
[2016-11-02] MEDS: LORATADINE 10 MG TAB PO SCH (08:15)
[2016-11-02] MEDS: ATORVASTATIN 20 MG TAB PO SCH (08:16)
[2016-11-02] MEDS: AMLODIPINE BESYLATE 5 MG TAB PO SCH (08:17)
[2016-11-02] MEDS: PREGABALIN 150 MG CAP PO SCH ×3 (08:17→21:00)
[2016-11-02] MEDS: DOXYCYCLINE HYCLATE 100 MG CAP PO SCH ×3 (08:18→21:00)
[2016-11-02] MEDS: ALLOPURINOL 100 MG TAB PO SCH (08:18)
[2016-11-02] MEDS: OXYCODONE/ACETAMINOPHEN 10/325MG TAB PO SCH ×4 (08:18→21:00)
[2016-11-02] MEDS: INSULIN ASPART 100 UNITS/ML 3 ML PEN SC SCH ×4 (08:23→21:00)
[2016-11-02] MEDS: INSULIN GLARGINE SOLOSTAR 100 UNITS/ML 3 ML PEN SC SCH ×4 (08:24→21:07)
[2016-11-02 08:43] LABS: BUN/CREATININE RATIO 15.5 (10-20); CALCIUM 8.2 mg/dl (8.5-10.1); CREATININE 2.6 mg/dl (0.60-1.40); POTASSIUM 4.3 mmol/L (3.5-5.1); URIC ACID 5.7 mg/dl (2.6-7.2)
[2016-11-02 08:49] LABS: ESTIMATED AVERAGE GLUCOSE 177 mg/dl; HA1C FLAG Normal (Normal)
[2016-11-02] MEDS ORDERED: DIAZEPAM 5MG TAB PO ONE ×2 (09:33→19:45)
[2016-11-02] MEDS ORDERED: PHARMACY GLYCEMIC MGMT CONSULT SCH (09:41)
[2016-11-02] MEDS ORDERED: DIAZEPAM 5MG TAB PO SCH ×2 (09:45→14:00)
--- NOTE | 2016-11-02 09:58 | Pharmacy Progress Note ---
Glycemic Control Intl Consult Date of Service Nov 02, 2016. Scope Glycemic Pharmacist consulted by Dr Moyer on 11/02/16 for glycemic control and to write orders per [facility] inpatient glycemic control protocol Objective Weight (Kilograms): 109.400 Accuchecks BSG (last 24hrs): Test 11/01/16 11:58 11/01/16 16:20 11/01/16 20:05 11/02/16 01:12 Bedside Glucose 225 mg/dl (70-99) 270 mg/dl (70-99) 319 mg/dl (70-99) 205 mg/dl (70-99) Test 11/02/16 07:10 11/02/16 08:15 Random Glucose 224 mg/dl (70-99) Bedside Glucose 246 mg/dl (70-99) Laboratory Data (last 24hrs) Test 11/02/16 07:10 Anion Gap 11.0 mmol/L BUN/Creatinine Ratio 15.5 Blood Urea Nitrogen 40 mg/dl Creatinine 2.60 mg/dl Hemoglobin A1c 7.8 % Potassium Level 4.3 mmol/L Sodium Level 141 mmol/L White Blood Count 4.20 K/uL HbA1c Test 11/02/16 07:10 Hemoglobin A1c 7.8 % (4.5-5.6) H Recent Pertinent Medications Outpatient Anti-diabetic Regimen: * Glipizide 20mg PO daily * Metformin 1g PO BID * A1c = 7.8 % 11/02/16 The patient is currently receiving: * Basal insulin: Lantus 15 units every 12 hours * Correctional Insulin: Novolog Correction per scale ACHS Goal Range: Low 120 mg/dL - High 160 mg/dL Correction Factor: 20 mg/dL/unit * Prandial insulin: Per carb ratio of 1 unit per 10 grams CHO consumed * Oral Agents: On Hold Risk Factors for Insulin Resistance: * Infection: Doxycycline PO * Diet: AHA/ Dnaw1EF/ LowK+ Assessment & Plan ASSESSMENT: * ADA & AACE recommend a goal blood sugar range 140-180 mg/dl for the majority of critically ill & non-critically ill patients. However, more stringent targets may be selected in individual cases. For patient's age and A1c, will use 120-160mg/dL. * 66 yo type 2 DM, uncontrolled, A1c = 7.8%, only on orals as outpatient. Admitted from [facility] with ARF and Epistaxis. * Patient just received 3rd dose of Lantus this morning, I feel that 15 units BID is likely a good dose for him, and will reach steady state by tonight. Continue for now. * I will tighten CF and CR for more insulin coverage. PLAN FOR INPATIENT GLYCEMIC CONTROL: * Holding outpatient oral diabetes medications * Basal insulin with LANTUS 15 units SQ BID * Correctional Insulin with NOVOLOG per scale ACHS or Q6hrs while NPO * Goal Range: Low 120 mg/dL - High 160 mg/dL * CHANGE: Correction Factor: 18 mg/dL/unit * CHANGE: Nutritional / Prandial insulin per carb ratio of 1 unit per 6 grams CHO consumed * Please note that the plan above was derived based on current level of insulin resistance and hospital stress. These recommendations are appropriate for inpatient admission only. Plan of care upon discharge will need to be reassessed to avoid potential outpatient hypo/hyperglycemia. Thank you.
[2016-11-02] MEDS: DIAZEPAM 5MG TAB PO SCH ×3 (10:25→22:26)
[2016-11-02 11:37] LABS: BENZODIAZEPINE, URINE POS (NEG); COCAINE,URINE NEG (NEG); PHENCYCLIDINE, URINE NEG (NEG)
--- NOTE | 2016-11-02 16:04 | Progress Note ---
Medicine Progress Note Date & Time of Visit: Nov 02, 2016 at 10:43. Subjective got sleep last night feels better today Denies chest pain or shortness of breath today or overnight BP good overnight but elevated more this morning scheduling diazepam to deal with withdrawal I am hopeful the scheduled diazepam will mean he is less agitated and contribute to lower blood pressures moving forward If not, poss addition of clonidine, however, patient states "I have enough meds " Utox to screen for substances that may be contributing to renal failure Creat improved from 2.9 to 2.6 today with IVF overnight, however, CXR this morning shows some vol overload, so held IVF until Nephro reassessment this am. Plan for removal of Rhino Rocket in am tomorrow no anemia on CBC this am If bleeds then will transfer to [place] for cautery Cont Doxy BID for prophylaxis while packing in place. After review of all outside notes from recent hospitalization provided, I am seeing that this patient had two episodes of chest pain prior to arrival to [facility] on 10/21. He presented to the ER that day for epistaxis and was admitted. Serial troponin enzymes were mildly positive (0.10-->0.09), but he was also in renal failure and was being treated for acute on chronic CHF. There are no EKGs available for review. I do not see a Cardiology consult or a stress test performed. This patient has a h/o CABG on 08/20/15, with an TTE the following day revealing dilated ICM with discrete basal inferoseptal and inferior scarring and EF 50-55%. He was discharged on 10/25 after treatment for hypertroponemia, Hypertensive Urgency, Acute on chronic renal failure and epistaxis which was treated with a Rhino Rocket. On the discharge summary he was noted to be going home with shortness of breath and was worried how he was going to cut firewood at home as he uses wood to heat his house. He was also discharged with a creatinine of 2.4, which was above his baseline Then he reports going home, and notes reflect that he drank beer but he was not able to quantify how much. There was no discharge medication list provided from this recent hospitalization, however, it is possible that he was discharged on Demedex 5mg PO daily, which was reported in the plan from the FP office note on 10/31. He went to see Dr. Stephenson (PCP) that day for a hospital follow-up--creat outpatient that day was 3.7. He had a repeat episode of epistaxis and returned to ER, where a trop was 0.06 and creat was 3.43. It is not clear whether he was having chest pain or shortness of breath at that time; he was then transferred to [facility]. Since getting here yesterday morning, he was initially very rude and a poor historian. He refused to give most of the providers seeing him any information , or answer any questions clearly that were directed at him regarding current symptoms he might be experiencing. His diuretic was held and he was given IVF overnight with an improvement in his creat to 2.6 (on admission here was 2.9). However, CXR this morning showed some mild congestion, so the IVF were stopped pending Nephro re-evaluation. Based on this new information, will obtain an EKG, which was not performed yet this admission, and will obtain a troponin to ensure it is not elevated. I will not empirically treat for ACS at this point pending results of these studies, as he is asymptomatic with an TTE that does not reveal new wall motion abnormalities. Additionally, when his troponin was mildly elevated at the prior hospital, he was in renal failure in the setting of acute CHF. To my knowledge, there have been no further episodes of chest pain since the initial chest pain episodes on the . However, may involve Cardiology in am to evaluate for risk stratification efforts with his history of CABG and PM placement. I also do not believe he is in heart failure at this point as he clinically appears compensated. Objective Last 8 Hrs Date Time Temp Pulse Resp B/P Pulse Ox O2 Delivery O2 Flow Rate FiO2 11/02/16 08:24 36.5 67 16 151/83 97 Room Air Physical Exam: GEN: WNWD, in no acute distress, alert and appropriate, appears calm, ambulatory HEENT: NC/AT, normal sclerae, nasal packing in place. CARDIO: reg rate, S1/2 heard without m/g/r LUNGS: CTA bilaterally, no crackles, rales or wheezes, good diaphragmatic excursion ABD: soft, non-tender, non-distended, no rebound or guarding, colostomy bag in place EXTREMITY: RP and DP palpable 2+ bilat, no LE swelling or edema, extremities are warm and well-perfused NEURO: CN 2-12 grossly intact, no gross focal deficits. MUSC: developed musculature, moves all extremities equally. SKIN: warm and dry Laboratory Results: Last 24 Hours Test 11/01/16 11:58 11/01/16 14:30 11/01/16 16:20 11/01/16 20:05 Bedside Glucose 225 mg/dl 270 mg/dl 319 mg/dl Urine Color YELLOW Urine Appearance CLEAR Urine pH 6.5 Urine Specific [place] 1.015 Urine Protein NEG Urine Glucose (UA) 3+ Urine Ketones NEG Urine Occult Blood NEG Urine Nitrite NEG Urine Bilirubin NEG Urine Urobilinogen NEG Urine Leukocyte Esterase NEG Urine WBC (Auto) 0 /hpf Urine RBC (Auto) 0-4 /hpf Urine Hyaline Casts (Auto) 0 /lpf Urine Epithelial Cells (Auto) 0-5 /lpf Urine Bacteria (Auto) NEG Urine Random Creatinine 78.0 mg/dl Urine Random Sodium 86 mEq/L Test 11/02/16 01:12 11/02/16 07:10 11/02/16 08:15 Bedside Glucose 205 mg/dl 246 mg/dl White Blood Count 4.20 K/uL Red Blood Count 3.81 M/uL Hemoglobin 12.0 g/dL Hematocrit 35.7 % Mean Corpuscular Volume 93.7 fL Mean Corpuscular Hemoglobin 31.5 pg Mean Corpuscular Hemoglobin Concent 33.6 g/dl RDW Standard Deviation 47.8 fL RDW Coefficient of Variation 14.0 % Platelet Count 180 K/uL Mean Platelet Volume 11.3 fL Sodium Level 141 mmol/L Potassium Level 4.3 mmol/L Chloride Level 109 mmol/L Carbon Dioxide Level 21 mmol/L Anion Gap 11.0 mmol/L Blood Urea Nitrogen 40 mg/dl Creatinine 2.60 mg/dl Est Creatinine Clear Calc Drug Dose 35.5 ml/min Estimated GFR () 28.9 Estimated GFR (Non- 24.9 BUN/Creatinine Ratio 15.5 Random Glucose 224 mg/dl Estimated Average Glucose 177 mg/dl Hemoglobin A1c 7.8 % Uric Acid 5.7 mg/dl Calcium Level 8.2 mg/dl Total Creatine Kinase 184 U/L Assessment & Plan 66 yoM recently released from [facility], presents to [facility] as a transfer from ER for recurrent epistaxis with acute renal failure. ACUTE KIDNEY INJURY CKD III with baseline creatinine around 1.5. Creatinine-->3.43-->2.9-->2.6 today TYREL may be due to volume depletion from combination of ileostomy output + diuretic therapy. FeNa was >2%,poss 'ATN from recent hospitalization Hold torsemide. IV fluids-held after CXR revealed some congestion Appreciate Nephro recs EPISTAXIS 2 recent episodes of severe epistaxis. Right nostril cauterized / packed in [place] ED. Hold aspirin. ENT plans to pull out sun am Doxy to cover staph/strep species while nasal packing is in place and while we are hospitalized If patient rebleeds, he will be transferred to [place]. ETOH USE Hope use of benzos as needed Diazepam scheduled TID CORONARY ARTERY DISEASE s/p CABG in 2014 Hold aspirin due to epistaxis. Continue metoprolol and amlodipine. REcent episodes of chest pain, not present now. REpeat EKG reveals paced rhythm with abnormalities Troponin is negative Transfer to telemetry and consult cardiology in am. HYPERTENSION Continue metoprolol and amlodipine. Goal for scheduled diazepam is to reduce agitation and indirectly reduce BP COPD Continue bronchodilators. DM TYPE 2 Hold oral agents due to acute illness / TYREL. Hgb H3S-haznsak Lantus / NovoLog per protocol. GOUT Continue allopurinol. CHRONIC PAIN Continue usual meds. DEPRESSION Offered Psychiatry consultation; patient declines. ANXIETY Continue diazepam PRN. HISTORY OF ALCOHOL ABUSE Denies recent consumption. Follow for signs / symptoms of withdrawal. VTE PROPHYLAXIS No anticoagulants due to epistaxis. SCD's. Ambulate. RESUSCITATION STATUS Full code. DISPOSITION Admitted to Med-Surg Unit-transfer to telemetry for monitoring Expected discharge to home. Medical follow-up with Dr. Stephenson. Current Inpatient Medications: Current Inpatient Medications Medications (Trade) Dose Ordered Sig/All Route Start Time Stop Time Status Last Admin Dose Admin Acetaminophen (Tylenol Tab) 650 mg Q4H PRN PO 11/01/16 06:00 12/01/16 05:59 Oxycodone/ Acetaminophen (Percocet 10-325MG Tab) 1 tab TID PO 11/01/16 14:00 11/15/16 13:59 11/02/16 08:18 1 TAB Glucose (Glucose 40% Gel) 15-30 GRAMS 15 GRAMS... UD PRN PO 11/01/16 09:15 12/01/16 09:14 Glucose (Glucose Chew Tab) 4-8 Tablets 4 Tabl... UD PRN PO 11/01/16 09:15 12/01/16 09:14 Dextrose (Dextrose 50% 50ML Syringe) 25-50ML OF 50% DW IV FOR... UD PRN IV 11/01/16 09:15 12/01/16 09:14 Glucagon (Glucagon Inj) 1 mg UD PRN SQ 11/01/16 09:15 12/01/16 09:14 Albuterol (Ventolin Hfa Inhaler) 2 puffs QID INH 11/01/16 12:00 12/01/16 11:59 11/02/16 08:14 2 PUFFS Amlodipine Besylate (Norvasc Tab) 10 mg DAILY PO 11/02/16 08:00 12/01/16 07:59 11/02/16 08:17 10 MG Atorvastatin Calcium (Lipitor Tab) 20 mg DAILY PO 11/02/16 08:00 12/01/16 07:59 11/02/16 08:16 20 MG Fenofibrate (Tricor Tab) 145 mg DAILY PO 11/02/16 08:00 12/01/16 07:59 11/02/16 08:14 145 MG Salmeterol Xinafoate/ Fluticasone (Advair Diskus 250/50 Inh) 1 puff BID INH 11/01/16 20:00 12/01/16 19:59 11/02/16 08:14 1 PUFF Loratadine (Claritin Tab) 10 mg DAILY PO 11/02/16 08:00 12/01/16 07:59 11/02/16 08:15 10 MG Metoprolol Succinate (Toprol Xl Tab) 50 mg DAILY PO 11/02/16 08:00 12/01/16 07:59 11/02/16 08:15 50 MG Pregabalin (Lyrica Cap) 300 mg BID PO 11/01/16 20:00 12/01/16 19:59 11/02/16 08:17 300 MG Allopurinol (Zyloprim Tab) 100 mg DAILY PO 11/02/16 08:00 12/02/16 07:59 11/02/16 08:18 100 MG Nitroglycerin (Nitrostat Tab) 0.4 mg PRN PRN SL 11/01/16 13:15 12/01/16 13:14 Clonidine HCl (Catapres Tab) 0.1 mg Q4H PRN PO 11/01/16 13:15 12/01/16 13:14 11/01/16 14:43 0.1 MG Doxycycline Hyclate (Vibramycin Cap) 100 mg BID PO 11/01/16 20:00 11/11/16 19:59 11/02/16 08:18 100 MG Insulin Aspart (novoLOG ASPART) SLIDING SCALE G... ACHS SC 11/01/16 22:00 12/01/16 21:59 11/02/16 08:23 8 UNITS Insulin Glargine (Lantus Solostar Pen) 15 unit BID SC 11/02/16 08:00 12/02/16 07:59 11/02/16 08:24 15 UNIT Miscellaneous Information (Consult Glycemic Management Pharmacy) 1 ea UD N/A 11/02/16 09:41 12/02/16 09:40 Diazepam (Valium Tab) 5 mg TID@1000,1600,2200 PO 11/02/16 10:00 12/02/16 09:59 11/02/16 10:25 5 MG
[2016-11-02] MEDS: CLONIDINE HCL 0.1 MG TAB PO PRN (23:37)
[2016-11-03] VITALS (11 sets, daily range): BP systolic 135–169; BP diastolic 68–115; PULSE 53–84; TEMP 36.5–36.6; O2SAT 94–98
[2016-11-03] MEDS: INSULIN ASPART 100 UNITS/ML 3 ML PEN SC SCH ×5 (01:53→20:46)
[2016-11-03 05:56] LABS: HEMATOCRIT 35.9 % (42-52); MEAN CELL VOLUME 92.5 fL (80-100); MEAN CORPUSCULAR HEMOGLOBIN 31.4 pg (25-34); MEAN PLATELET VOLUME 10.4 fL (7.4-10.4); PLATELET COUNT 170 K/uL (130-400); RED BLOOD COUNT 3.88 M/uL (4.7-6.1); WHITE BLOOD COUNT 5.19 K/uL (4.8-10.8)
[2016-11-03 06:28] LABS: BUN/CREATININE RATIO 15.2 (10-20); CALCIUM 8.3 mg/dl (8.5-10.1); CREATININE 2.7 mg/dl (0.60-1.40); MAGNESIUM 1.9 mg/dl (1.8-2.4); POTASSIUM 4.3 mmol/L (3.5-5.1)
[2016-11-03] MEDS ORDERED: NURSING VERBAL MED ORDER ONE ×2 (06:45→14:30)
[2016-11-03] MEDS ORDERED: OXYMETAZOLINE HCL 0.05% NA SPR 15 ML BTL PRN (07:00)
[2016-11-03] MEDS: LORATADINE 10 MG TAB PO SCH (07:25)
[2016-11-03] MEDS: FLUTICASONE/SALMETEROL 250/50 (ADVAIR) 14 PUFF/1 INHALER INH SCH ×2 (07:25→20:28)
[2016-11-03] MEDS: ALBUTEROL HFA 8 GM INHALER INH SCH ×4 (07:25→20:29)
[2016-11-03] MEDS: ATORVASTATIN 20 MG TAB PO SCH (07:26)
[2016-11-03] MEDS: PREGABALIN 150 MG CAP PO SCH ×2 (07:26→20:28)
[2016-11-03] MEDS: FENOFIBRATE 145 MG TAB PO SCH (07:27)
[2016-11-03] MEDS: OXYCODONE/ACETAMINOPHEN 10/325MG TAB PO SCH ×3 (07:27→20:28)
[2016-11-03] MEDS: METOPROLOL SUCC 50MG EXT REL TAB PO SCH ×2 (07:27→20:29)
[2016-11-03] MEDS: AMLODIPINE BESYLATE 5 MG TAB PO SCH (07:27)
[2016-11-03] MEDS: DOXYCYCLINE HYCLATE 100 MG CAP PO SCH ×2 (07:28→20:29)
[2016-11-03] MEDS: ALLOPURINOL 100 MG TAB PO SCH (07:28)
[2016-11-03] MEDS: INSULIN GLARGINE SOLOSTAR 100 UNITS/ML 3 ML PEN SC SCH ×2 (07:33→20:48)
[2016-11-03] MEDS: OXYMETAZOLINE HCL 0.05% NA SPR 15 ML BTL SCH ×2 (09:00→20:28)
[2016-11-03] MEDS: DIAZEPAM 5MG TAB PO SCH ×3 (11:11→21:52)
--- NOTE | 2016-11-03 11:15 | CARDIOLOGY CONSULTATION ---
DATE OF CONSULTATION: 11/03/2016 REFERRING PHYSICIAN: Dr. Carmen Moyer. REASON FOR CONSULTATION: Abnormal ECG, possible atrial fibrillation, chest pain, coronary artery disease with a prior coronary artery bypass grafting, and pacemaker. HISTORY OF PRESENT ILLNESS: The patient is a 66-year-old gentleman who is chronically followed by Dr. Biggs in [place]. He presented to the Emergency Department at [facility] with epistaxis for several days. He was noted to have elevated creatinine during recent hospitalization in [place]. His baseline creatinine runs 1.3-1.7. Creatinine of 3.43 noted on admission. The patient is a poor historian. He reports living alone in a secluded area. Admits to shortness of breath and caring firewood on a daily basis. Reports intermittent episodes of chest discomfort, which are not necessarily related to exertion. He has not used any sublingual nitroglycerin. He is quite vague about his symptoms. He states he does not pay much attention to his symptoms and lives his life day-to-day. He admits to noncompliance medications. Currently, a Rhino Rocket is in place. His hemoglobin is stable. Creatinine has stabilized - 2.70 this a.m. Denies chest pain since hospitalization at [facility]. Pacemaker interrogation was performed last night due to abnormal ECG performed at [place], which was read as atrial fibrillation. Pacemaker interrogation reveals underlying sinus rhythm and atrial paced rhythm. Telemetry currently reveals an atrial paced rhythm with frequent PVCs. There are 3 short salvos of what appears to be atrial flutter dated August 2015; however, EGMs were not available for review. The arrhythmias were recorded approximately 3 days after CABG with no recurrence in more than one year. Aspirin has been discontinued due to epistaxis. He is resting comfortably in his hospital bed. He offers no complaints at this time. REVIEW OF SYSTEMS: The pertinent positives noted above. A comprehensive 10-system review is otherwise negative. PAST MEDICAL HISTORY: 1. Chronic coronary artery disease with prior coronary artery bypass grafting at [facility] on 09/27/2015. 2. Diabetes type 2. 3. Dyslipidemia. 4. Pacemaker interrogation of probable atrial flutter -- short salvos. 5. C. diff colitis. 6. Dilated ascending aorta per previous 2D echos. 7. CKD stage III. 8. COPD. 9. Depression. 10. Diabetic neuropathy. 11. Hypertension. 12. Peripheral vascular disease. 13. Possible renal artery stenosis. 14. Sick sinus syndrome. PAST SURGICAL HISTORY: 1. Coronary artery bypass grafting x3 with GARIBAY to LAD, SVG to OM, and SVG to PDA on 08/24/2015. 2. Pacemaker implantation. 3. Colostomy. 4. Spinal surgery. FAMILY HISTORY: Negative for premature CAD or sudden cardiac . ALLERGIES: LISTED TO PENICILLIN. OUTPATIENT MEDICATIONS: 1. Aspirin 81 mg daily. 2. Albuterol inhaler 2 puffs q.i.d. 3. Allopurinol 200 mg daily. 4. Norvasc 10 mg daily. 5. Atorvastatin 20 mg daily. 6. Tricor 145 mg daily. 7. Advair Diskus 1 puff twice daily. 8. Glipizide 20 mg daily. 9. Claritin 10 mg daily. 10. Glucophage 1000 mg twice daily. 11. Toprol-XL 50 mg daily. 12. Percocet 3 times daily. 13. Lyrica 300 mg twice. 14. Torsemide 5 mg daily. 15. Valium 10 mg twice daily as needed. 16. Clonidine 0.1 mg tablet; however, scheduling was not recorded in the Epic record. SOCIAL HISTORY: He is a current everyday smoker, although he is vague about the amount of cigarettes he is currently using. He is admitting to approximately 1.5 pack per day. Denies alcohol use. ECG performed last evening demonstrates atrial paced rhythm with frequent premature ventricular complexes, ventricular couplets, and nonspecific baseline intraventricular conduction block. Chest x-ray demonstrates mild congestion. LABORATORY DATA: Troponin 0.038. Sodium 141, potassium 4.3, chloride 111, CO2 is 21, BUN is 41, creatinine is 2.70, and glucose 192. Hemoglobin A1c is 7.8. White blood cell count 5.19, hemoglobin is 12.2, and platelet count is 170. PT is 11.8 and INR is 1.1. UDS is positive for opiates and benzodiazepines. Telemetry demonstrates atrial paced rhythm, PVCs in a pattern of ventricular bigeminy. PHYSICAL EXAMINATION: VITAL SIGNS: Temperature 36.6 degrees centigrade, pulse 55 beats per minute and irregular, respiratory rate is 19 breaths per minute, blood pressure 157/90 and SaO2 is 98% on room air. GENERAL: NAD, chronically ill, overweight. THROAT: His mucous membranes are moist. No scleral icterus. Conjunctivae pink. NECK: Supple without JVD or HJR. No carotid bruit. HEART: Regular with a normal S1 and S2. No murmur, rub, or gallop appreciated. LUNGS: Clear bilateral without rales, rhonchi or wheeze. ABDOMEN: Soft and nontender. No rebound or guarding. Normal bowel sounds. EXTREMITIES: Warm and dry. There is no clubbing, cyanosis, or edema. NEUROLOGIC: Demonstrates no focal motor deficit. Cranial nerves are grossly intact. FINAL IMPRESSION: 1. A 66-year-old gentleman admitted with acute renal failure and epistaxis. Cardiology consultation requested due to concerns regarding atrial fibrillation on previous ECG taken at [facility]. I have reviewed that ECG, which demonstrates atrial paced rhythm and premature ventricular complexes. He continues to demonstrate atrial paced rhythm and premature ventricular contractions during current hospitalization. Pacemaker interrogation reveals short salvos of likely atrial flutter more than one year ago in the postoperative setting, which have not recurred. 2. Atypical chest discomfort with a history of chronic coronary artery disease and coronary artery bypass grafting x3. 3. Sick sinus syndrome, status post pacemaker implantation -- interrogation demonstrates normal function with 4.5 years battery life remaining. 4. Diastolic dysfunction without signs or symptoms of decompensated heart failure. Intravenous fluids discontinued due to concerns for mild volume overload in the setting of grade 2 diastolic dysfunction and chronic diuretic use. 5. Acute renal insufficiency superimposed on chronic kidney disease. 6. Epistaxis. PLAN AND RECOMMENDATIONS: Antiplatelet therapy will remain on hold until cleared by ear, nose and throat specialist. I will re-interrogate pacemaker to examine the EGMs of paroxysmal atrial dysrhythmias recorded in August 2015. The dysrhythmias were short lived in the postoperative CABG setting. I do not recommend oral anticoagulation at this time. In regard to his atypical chest pain, would recommend outpatient pharmacologic stress testing in the future; however, the patient will need to establish care with a logging tractor operator swamp near his home in the [facility]. This can be correlated through Dr. Bigsg's office. States he would be unwilling to travel to [place] for cardiology followup. His pacemaker should be interrogated every 3 months. From a medication perspective, I am titrating Toprol-XL to 50 mg twice daily to improve blood pressure control as well as suppression of frequent PVCs noted on dielectric embossing machine operator. Encouraged compliance with cardiovascular medications. Smoking cessation also recommended. Thank you for allowing me to take part in the care of your patient. HIWOT
--- NOTE | 2016-11-03 12:13 | Progress Note ---
Medicine Progress Note Date & Time of Visit: Nov 03, 2016 at 11:23. Subjective Pt reports persistent shortness of breath this morning at rest He states that he is more short of breath with exertion, also, however, he cannot quantify it because his neuropathy also plays a role there. He was transferred to telemetry overnight after an EKG concerning for arrythmia- ->frequent PVCs were noted overnight His pacemaker was interrogated this morning and was OK Cardiology evaluated him and increased his Toprol XL to BID to assist with PVC suppression and BL control Pt is requesting premedication with Valium prior to rhino rocket removal today. Creat is stable at 2.7-->discussed case with Nephro and will cont holding diuretic and avoid IVF at this time Possibly SOB will improve with rhino rocket removal? Objective Last 8 Hrs Date Time Temp Pulse Resp B/P Pulse Ox O2 Delivery O2 Flow Rate FiO2 11/03/16 08:01 94 Room Air 11/03/16 07:34 36.6 55 19 157/90 98 11/03/16 04:05 Room Air 11/03/16 03:45 36.6 53 20 145/79 95 Room Air Physical Exam: GEN: WNWD, in no acute distress, alert and appropriate, appears calm, ambulatory , eating lunch HEENT: NC/AT, normal sclerae, nasal packing in place in R nare CARDIO: reg rate, S1/2 heard without m/g/r LUNGS: CTA bilaterally, no crackles, rales or wheezes, good diaphragmatic excursion ABD: soft, non-tender, non-distended, no rebound or guarding, colostomy bag in place, BS EXTREMITY: RP and DP palpable 2+ bilat, no LE swelling or edema, extremities are warm and well-perfused NEURO: CN 2-12 grossly intact, no gross focal deficits. MUSC: developed musculature, moves all extremities equally. SKIN: warm and dry Laboratory Results: Last 24 Hours Test 11/02/16 11:25 11/02/16 16:25 11/02/16 17:00 11/02/16 20:00 Bedside Glucose 294 mg/dl 91 mg/dl 138 mg/dl Troponin I 0.038 ng/ml Test 11/03/16 01:49 11/03/16 05:25 11/03/16 06:48 Bedside Glucose 221 mg/dl 192 mg/dl White Blood Count 5.19 K/uL Red Blood Count 3.88 M/uL Hemoglobin 12.2 g/dL Hematocrit 35.9 % Mean Corpuscular Volume 92.5 fL Mean Corpuscular Hemoglobin 31.4 pg Mean Corpuscular Hemoglobin Concent 34.0 g/dl RDW Standard Deviation 47.0 fL RDW Coefficient of Variation 14.0 % Platelet Count 170 K/uL Mean Platelet Volume 10.4 fL Sodium Level 141 mmol/L Potassium Level 4.3 mmol/L Chloride Level 111 mmol/L Carbon Dioxide Level 21 mmol/L Anion Gap 9.0 mmol/L Blood Urea Nitrogen 41 mg/dl Creatinine 2.70 mg/dl Est Creatinine Clear Calc Drug Dose 34.4 ml/min Estimated GFR () 27.6 Estimated GFR (Non- 23.8 BUN/Creatinine Ratio 15.2 Random Glucose 188 mg/dl Calcium Level 8.3 mg/dl Magnesium Level 1.9 mg/dl Assessment & Plan 66 yoM recently released from [facility], presents to [facility] as a transfer from ER for recurrent epistaxis with acute renal failure. ACUTE KIDNEY INJURY CKD III with baseline creatinine around 1.5. Creatinine-->3.43-->2.9-->2.6-->2.7 today TYREL may be due to volume depletion from combination of ileostomy output + diuretic therapy. FeNa was >2%,poss 'ATN from recent hospitalization Cont holding torsemide. IV fluids-held after CXR revealed some congestion on 11/02. Nephro following EPISTAXIS 2 recent episodes of severe epistaxis prior to transfer to [facility] Right nostril cauterized / packed in [place] ED. Hold aspirin. ENT plans to pull out at 1300 today Doxy to cover staph/strep species while nasal packing is in place and while we are hospitalized If patient rebleeds, he will be transferred to [place]. No anemia at this time. SHORTNESS OF BREATH: -may be 2/2 heart failure, however, patient appears compensated at this time -recent treatment with Demedex caused ARF, so diuretics are on hold at this point -case was discussed with Nephro this morning -patient does not have insight into his disease process, and he may be improved after rhino rocket removal -not in ACS at this time with no reduced heart function on TTE this admission -monitor, consider repeat CXR in am if not improved. ETOH USE Enochs use of benzos as needed Diazepam scheduled TID CORONARY ARTERY DISEASE s/p CABG in 2014 Hold aspirin due to epistaxis. Continue metoprolol and amlodipine. REcent episodes of chest pain, not present now. REpeat EKG reveals paced rhythm with abnormalities PM evaluation this morning and no arrythmias since last Nov--atrial flutter No anticoagulation indicated per Cards evaluation, however, needs to continue with q3 month PM checks Troponin is negative, however, with h/o atypical chest pain and history patient will need an outpatient stress test. He doesn't know who his lambskin trimmer is, so this can be coordinated through PCP office. Will advise him at discharge Cont to monitor on telemetry at this time. HYPERTENSION Continue metoprolol and amlodipine. Toprol CL 50mg was increased to BID Cont scheduled diazepam to reduce agitation in this man with h/o alcohol abuse. COPD Continue bronchodilators. DM TYPE 2 Hold oral agents due to acute illness / TYREL. Hgb A1C-7.8 Lantus / NovoLog per protocol. GOUT Continue allopurinol. CHRONIC PAIN Continue usual meds. DEPRESSION Offered Psychiatry consultation; patient declines. ANXIETY Continue diazepam PRN. HISTORY OF ALCOHOL ABUSE Denies recent consumption. Follow for signs / symptoms of withdrawal. Enochs benzos as above. VTE PROPHYLAXIS No anticoagulants due to epistaxis. SCD's. Ambulate. RESUSCITATION STATUS Full code. DISPOSITION Cont telemetry monitoring Expected discharge to home. Medical follow-up with Dr. Stephenson. Carmen Moyer DO [facility] Hospitalist Consultants: ENT, Cards, Nephro Current Inpatient Medications: Current Inpatient Medications Medications (Trade) Dose Ordered Sig/All Route Start Time Stop Time Status Last Admin Dose Admin Acetaminophen (Tylenol Tab) 650 mg Q4H PRN PO 11/01/16 06:00 12/01/16 05:59 Oxycodone/ Acetaminophen (Percocet 10-325MG Tab) 1 tab TID PO 11/01/16 14:00 11/15/16 13:59 11/03/16 07:27 1 TAB Glucose (Glucose 40% Gel) 15-30 GRAMS 15 GRAMS... UD PRN PO 11/01/16 09:15 12/01/16 09:14 Glucose (Glucose Chew Tab) 4-8 Tablets 4 Tabl... UD PRN PO 11/01/16 09:15 12/01/16 09:14 Dextrose (Dextrose 50% 50ML Syringe) 25-50ML OF 50% DW IV FOR... UD PRN IV 11/01/16 09:15 12/01/16 09:14 Glucagon (Glucagon Inj) 1 mg UD PRN SQ 11/01/16 09:15 12/01/16 09:14 Albuterol (Ventolin Hfa Inhaler) 2 puffs QID INH 11/01/16 12:00 12/01/16 11:59 11/02/16 20:07 2 PUFFS Amlodipine Besylate (Norvasc Tab) 10 mg DAILY PO 11/02/16 08:00 12/01/16 07:59 11/03/16 07:27 10 MG Atorvastatin Calcium (Lipitor Tab) 20 mg DAILY PO 11/02/16 08:00 12/01/16 07:59 11/03/16 07:26 20 MG Fenofibrate (Tricor Tab) 145 mg DAILY PO 11/02/16 08:00 12/01/16 07:59 11/03/16 07:27 145 MG Salmeterol Xinafoate/ Fluticasone (Advair Diskus 250/50 Inh) 1 puff BID INH 11/01/16 20:00 12/01/16 19:59 11/02/16 20:06 1 PUFF Loratadine (Claritin Tab) 10 mg DAILY PO 11/02/16 08:00 12/01/16 07:59 11/02/16 08:15 10 MG Pregabalin (Lyrica Cap) 300 mg BID PO 11/01/16 20:00 12/01/16 19:59 11/03/16 07:26 300 MG Allopurinol (Zyloprim Tab) 100 mg DAILY PO 11/02/16 08:00 12/02/16 07:59 11/03/16 07:28 100 MG Nitroglycerin (Nitrostat Tab) 0.4 mg PRN PRN SL 11/01/16 13:15 12/01/16 13:14 Clonidine HCl (Catapres Tab) 0.1 mg Q4H PRN PO 11/01/16 13:15 12/01/16 13:14 11/02/16 23:37 0.1 MG Doxycycline Hyclate (Vibramycin Cap) 100 mg BID PO 11/01/16 20:00 11/11/16 19:59 11/03/16 07:28 100 MG Insulin Aspart (novoLOG ASPART) SLIDING SCALE G... ACHS SC 11/01/16 22:00 12/01/16 21:59 11/03/16 07:33 7 UNITS Insulin Glargine (Lantus Solostar Pen) 15 unit BID SC 11/02/16 08:00 12/02/16 07:59 11/03/16 07:33 15 UNIT Miscellaneous Information (Consult Glycemic Management Pharmacy) 1 ea UD N/A 11/02/16 09:41 12/02/16 09:40 Diazepam (Valium Tab) 5 mg TID@1000,1600,2200 PO 11/02/16 10:00 12/02/16 09:59 11/03/16 11:11 5 MG Insulin Aspart (novoLOG ASPART) SLIDING SCALE G... 0200 SC 11/03/16 02:00 12/03/16 01:59 11/03/16 01:53 5 UNITS Oxymetazoline HCl (Afrin 0.05% Nasal [place]) 2 sprays Q12 NA 11/03/16 09:00 12/03/16 08:59 Metoprolol Succinate (Toprol Xl Tab) 50 mg BID PO 11/03/16 21:00 12/03/16 20:59
--- NOTE | 2016-11-03 12:25 | Pharmacy Progress Note ---
Glycemic Control: Progress Nt Date of Service Nov 03, 2016. Scope Glycemic Pharmacist consulted by Dr Moyer on 11/02/16 for glycemic control and to write orders per [facility] inpatient glycemic control protocol. Objective Accuchecks BSG (last 24hrs): Test 11/02/16 16:25 11/02/16 20:00 11/03/16 01:49 11/03/16 05:25 Bedside Glucose 91 mg/dl (70-99) 138 mg/dl (70-99) 221 mg/dl (70-99) Random Glucose 188 mg/dl (70-99) Test 11/03/16 06:48 11/03/16 11:09 Bedside Glucose 192 mg/dl (70-99) 323 mg/dl (70-99) Laboratory Data (last 24hrs) Test 11/03/16 05:25 Anion Gap 9.0 mmol/L BUN/Creatinine Ratio 15.2 Blood Urea Nitrogen 41 mg/dl Creatinine 2.70 mg/dl Potassium Level 4.3 mmol/L Sodium Level 141 mmol/L White Blood Count 5.19 K/uL HbA1c: Test 11/02/16 07:10 Hemoglobin A1c 7.8 % (4.5-5.6) H Recent Pertinent Medications Outpatient Anti-diabetic Regimen: * Glipizide 20mg PO daily * Metformin 1g PO BID * A1c = 7.8 % 11/02/16 The patient is currently receiving: * Basal insulin: Lantus 15 units every 12 hours - dose was held last night * Correctional Insulin: Novolog Correction per scale ACHS Goal Range: Low 120 mg/dL - High 160 mg/dL Correction Factor: 30 mg/dL/unit * Prandial insulin: Per carb ratio of 1 unit per 10 grams CHO consumed * Oral Agents: On Hold Risk Factors for Insulin Resistance: * Infection: Doxycycline PO * Diet: AHA/ Unsv1MX/ LowK+ Assessment & Plan ASSESSMENT: 11/02/16 * ADA & AACE recommend a goal blood sugar range 140-180 mg/dl for the majority of critically ill & non-critically ill patients. However, more stringent targets may be selected in individual cases. For patient's age and A1c, will use 120-160mg/dL. * 66 yo type 2 DM, uncontrolled, A1c = 7.8%, only on orals as outpatient. Admitted from [facility] with ARF and Epistaxis. * Patient just received 3rd dose of Lantus this morning, I feel that 15 units BID is likely a good dose for him, and will reach steady state by tonight. Continue for now. * I will tighten CF and CR for more insulin coverage. 11/03/16 * Patient's BSG dropped from 294 to 91mg/dL from lunch to dinner with 37 units of Novolog, at which point CF and CR were loosened, and PM dose of Lantus was also held. Patient is now back up to 323mg/dL today at lunch. I will adjust CF and CR. I was considering decreasing dose of Lantus, but I will just loosen CF and CR from 15 and 5 and then adjust Lantus if necessary tomorrow. I will add a lower dose option for Lantus for BSG < 120mg/dL. PLAN FOR INPATIENT GLYCEMIC CONTROL: * Holding outpatient oral diabetes medications * Basal insulin with LANTUS 15 units SQ BID * 10 units for BSG < 120 * Correctional Insulin with NOVOLOG per scale ACHS or Q6hrs while NPO * Goal Range: Low 120 mg/dL - High 160 mg/dL * CHANGE: Correction Factor: 25 mg/dL/unit * CHANGE: Nutritional / Prandial insulin per carb ratio of 1 unit per 8 grams CHO consumed * Please note that the plan above was derived based on current level of insulin resistance and hospital stress. These recommendations are appropriate for inpatient admission only. Plan of care upon discharge will need to be reassessed to avoid potential outpatient hypo/hyperglycemia. Thank you.
[2016-11-03] MEDS ORDERED: DIAZEPAM 5MG TAB PO SCH (12:30)
--- NOTE | 2016-11-03 14:21 | Progress Note ---
Subjective Date of Service: Nov 03, 2016. No bleeding since admission - would like to have his packing out. Subjective Pt evaluation today including: conversation w/ patient Objective Vital Signs Packing in right nostril still in good position without bleeding. Removed with no bleeding after 10 minutes. Date Time Temp Pulse Resp B/P Pulse Ox O2 Delivery O2 Flow Rate FiO2 11/03/16 12:39 94 Room Air 11/03/16 11:27 36.5 66 19 135/86 96 Room Air 11/03/16 08:01 94 Room Air 11/03/16 07:34 36.6 55 19 157/90 98 11/03/16 04:05 Room Air 11/03/16 03:45 36.6 53 20 145/79 95 Room Air 11/03/16 00:00 94 Room Air 11/02/16 23:40 36.5 68 18 165/100 98 Room Air 11/02/16 21:02 94 Room Air 11/02/16 19:41 74 20 159/92 96 Room Air 11/02/16 19:40 81 20 145/91 98 Room Air 11/02/16 19:39 36.5 64 18 153/71 95 Room Air 11/02/16 16:00 Room Air 11/02/16 15:48 36.7 72 18 124/80 97 Room Air Physical Exam General Appearance: no apparent distress Laboratory Results Last 24 Hours Test 11/02/16 16:25 11/02/16 17:00 11/02/16 20:00 11/03/16 01:49 Bedside Glucose 91 mg/dl 138 mg/dl 221 mg/dl Troponin I 0.038 ng/ml Test 11/03/16 05:25 11/03/16 06:48 11/03/16 11:09 White Blood Count 5.19 K/uL Red Blood Count 3.88 M/uL Hemoglobin 12.2 g/dL Hematocrit 35.9 % Mean Corpuscular Volume 92.5 fL Mean Corpuscular Hemoglobin 31.4 pg Mean Corpuscular Hemoglobin Concent 34.0 g/dl RDW Standard Deviation 47.0 fL RDW Coefficient of Variation 14.0 % Platelet Count 170 K/uL Mean Platelet Volume 10.4 fL Sodium Level 141 mmol/L Potassium Level 4.3 mmol/L Chloride Level 111 mmol/L Carbon Dioxide Level 21 mmol/L Anion Gap 9.0 mmol/L Blood Urea Nitrogen 41 mg/dl Creatinine 2.70 mg/dl Est Creatinine Clear Calc Drug Dose 34.4 ml/min Estimated GFR () 27.6 Estimated GFR (Non- 23.8 BUN/Creatinine Ratio 15.2 Random Glucose 188 mg/dl Calcium Level 8.3 mg/dl Magnesium Level 1.9 mg/dl Bedside Glucose 192 mg/dl 323 mg/dl Assessment and Plan Patient now with nasal packing out without recurrence of epistaxis. From an ENT perspective, he may be discharged to home on 11/04/16 if there is no further bleeding. He should do the following while an inpatient and when he goes home. 1) No blowing of nose. Starting 11/04/16, he may clean his nose using nasal saline irrigations with a small bulb syringe (used to suck out the noses of infants). Use 0.9% sterile saline while in hospital. At home, he may use 1/4 tsp of salt in 6 ounces of warm water. Ideally, he would boil the water (for sterilization purposes) and let it cool, but I doubt he will do this. 2) Use AYR nasal gel to nose with a Q-tip every 2 hours while awake. 3) Use AYR nasal saline spray to nose every 1 hours while awake. 4) Use a humidifier in every room he will be resting in at home. While in the hospital, he should be on a cool humidified face tent (respiratory will set this up). 5) For one week, he may use Afrin 12-hour spray: 2 puffs/nostril q 12 hours. This will cause vasoconstriction of nasal cavity blood vessels and prevent recurrence of epistaxis.
[2016-11-03] MEDS: SODIUM CHLORIDE 0.65% NA SOLN 45 ML (OCEAN) SCH ×8 (16:00→21:53)
[2016-11-04] VITALS (9 sets, daily range): BP systolic 143–162; BP diastolic 67–90; PULSE 60–77; TEMP 36.5–36.9; O2SAT 94–98; Ht 177.8 cm; Wt 115.2 kg
[2016-11-04] MEDS: INSULIN ASPART 100 UNITS/ML 3 ML PEN SC SCH ×5 (02:30→21:15)
[2016-11-04] MEDS: SODIUM CHLORIDE 0.65% NA SOLN 45 ML (OCEAN) SCH ×17 (05:06→22:01)
[2016-11-04 06:19] LABS: HEMATOCRIT 40.5 % (42-52); MEAN CELL VOLUME 91.6 fL (80-100); MEAN CORPUSCULAR HEMOGLOBIN 31.4 pg (25-34); MEAN CORPUSCULAR HGB CONC 34.3 g/dl (32-36); MEAN PLATELET VOLUME 10.8 fL (7.4-10.4); PLATELET COUNT 192 K/uL (130-400); RED BLOOD COUNT 4.42 M/uL (4.7-6.1)
[2016-11-04 06:50] LABS: BUN/CREATININE RATIO 18.8 (10-20); CALCIUM 8.9 mg/dl (8.5-10.1); CREATININE 2.5 mg/dl (0.60-1.40); POTASSIUM 4.6 mmol/L (3.5-5.1)
[2016-11-04] MEDS: OXYMETAZOLINE HCL 0.05% NA SPR 15 ML BTL SCH ×2 (08:04→21:11)
[2016-11-04] MEDS: FLUTICASONE/SALMETEROL 250/50 (ADVAIR) 14 PUFF/1 INHALER INH SCH ×2 (08:05→21:11)
[2016-11-04] MEDS: AMLODIPINE BESYLATE 5 MG TAB PO SCH (08:05)
[2016-11-04] MEDS: ATORVASTATIN 20 MG TAB PO SCH (08:05)
[2016-11-04] MEDS: ALBUTEROL HFA 8 GM INHALER INH SCH ×4 (08:05→21:11)
[2016-11-04] MEDS: METOPROLOL SUCC 50MG EXT REL TAB PO SCH ×2 (08:05→21:11)
[2016-11-04] MEDS: ALLOPURINOL 100 MG TAB PO SCH (08:06)
[2016-11-04] MEDS: FENOFIBRATE 145 MG TAB PO SCH (08:06)
[2016-11-04] MEDS: DOXYCYCLINE HYCLATE 100 MG CAP PO SCH ×2 (08:06→21:11)
[2016-11-04] MEDS: PREGABALIN 150 MG CAP PO SCH ×2 (08:10→21:12)
[2016-11-04] MEDS: OXYCODONE/ACETAMINOPHEN 10/325MG TAB PO SCH ×3 (08:10→21:12)
[2016-11-04] MEDS: LORATADINE 10 MG TAB PO SCH (08:11)
[2016-11-04] MEDS: INSULIN GLARGINE SOLOSTAR 100 UNITS/ML 3 ML PEN SC SCH ×2 (08:17→21:15)
--- NOTE | 2016-11-04 10:41 | Pharmacy Progress Note ---
Glycemic Control: Progress Nt Date of Service Nov 04, 2016. Scope Glycemic Pharmacist consulted by Dr Moyer on 11/02/16 for glycemic control and to write orders per [facility] inpatient glycemic control protocol. Objective Accuchecks BSG (last 24hrs): Test 11/03/16 11:09 11/03/16 16:21 11/03/16 20:24 11/04/16 02:26 Bedside Glucose 323 mg/dl (70-99) 148 mg/dl (70-99) 108 mg/dl (70-99) 166 mg/dl (70-99) Test 11/04/16 05:50 11/04/16 06:45 Random Glucose 164 mg/dl (70-99) Bedside Glucose 158 mg/dl (70-99) Laboratory Data (last 24hrs) Test 11/04/16 05:50 Anion Gap 10.0 mmol/L BUN/Creatinine Ratio 18.8 Blood Urea Nitrogen 47 mg/dl Creatinine 2.50 mg/dl Potassium Level 4.6 mmol/L Sodium Level 140 mmol/L White Blood Count 5.90 K/uL HbA1c: Test 11/02/16 07:10 Hemoglobin A1c 7.8 % (4.5-5.6) H Recent Pertinent Medications Outpatient Anti-diabetic Regimen: * Glipizide 20mg PO daily * Metformin 1g PO BID * A1c = 7.8 % 11/02/16 The patient is currently receiving: * Basal insulin: Lantus 15 units every 12 hours Give 10 units if BSG <120 mg/dL * Correctional Insulin: Novolog Correction per scale ACHS Goal Range: Low 120 mg/dL - High 160 mg/dL Correction Factor: 25 mg/dL/unit * Prandial insulin: Per carb ratio of 1 unit per 8 grams CHO consumed * Oral Agents: On Hold Risk Factors for Insulin Resistance: * Infection: Doxycycline PO * Diet: AHA/ Rvrb5BS/ LowK+ Assessment & Plan ASSESSMENT: 11/04/16 * 66 yo T2D M admitted with ARF and epistaxis on 11/01/16 * BSGs on admission >300 mg/dL--> basal/bolus regimen initiated and titrated since that time * Current regimen consistent with weight-based approach * Fasting BSG 158 mg/dL this AM- BSGs finally trending down * Of note, patient received large bolus of Novolog (19 units) with dinner last night incorrectly- nurse used BSG as grams of CHO consumed so I am unsure what the patient ate and what they should have gotten- no changes will be made based on this error * Continue current regimen * ADA & AACE recommend a goal blood sugar range 140-180 mg/dl for the majority of critically ill & non-critically ill patients. However, more stringent targets may be selected in individual cases. Patient has been on goal range of 120-160mg/dL- continue for now. PLAN FOR INPATIENT GLYCEMIC CONTROL: * Hold outpatient oral diabetes medications * Basal insulin with LANTUS 15 units SQ BID * 10 units for BSG < 120 * Correctional Insulin with NOVOLOG per scale ACHS or Q6hrs while NPO * Goal Range: Low 120 mg/dL - High 160 mg/dL * Correction Factor: 25 mg/dL/unit * Nutritional / Prandial insulin per carb ratio of 1 unit per 8 grams CHO consumed * Please note that the plan above was derived based on current level of insulin resistance and hospital stress. These recommendations are appropriate for inpatient admission only. Plan of care upon discharge will need to be reassessed to avoid potential outpatient hypo/hyperglycemia. Thank you. * Please note that the plan above was derived based on current level of insulin resistance and hospital stress. These recommendations are appropriate for inpatient admission only. Plan of care upon discharge will need to be reassessed to avoid potential outpatient hypo/hyperglycemia. Thank you.
[2016-11-04] MEDS: DIAZEPAM 5MG TAB PO SCH ×3 (10:42→21:12)
--- NOTE | 2016-11-04 11:32 | Cardiology Follow-Up ---
Subjective General Date of Service: Nov 04, 2016. Chief Complaint: history of pacer; afib; CAD Pt evaluation today including: conversation w/ patient, physical exam, chart review, lab review, review of studies, review of inpatient medication list History of Present Illness Patient feeling ok this AM. Notes ongoing SOB. Denies recurrent epistaxis since packing out. No recurrent chest pain. Allergies Coded Allergies: Penicillins (Verified Allergy, Severe, "i ", 07/01/13) Social History Smoking Status: Current Every Day Smoker Hx Tobacco Use In Past Year?: Yes Hx Alcohol Use - Type And Amou: Yes Hx Substance Use - Type And Am: No Review of Systems Respiratory: No cough, No dyspnea at rest, No hemoptysis, No shortness of breath, No sputum, No wheezing Cardiac: No PND, No chest pain, No edema, No orthopnea, No palpitations Physical Exam Vital Signs Last Vital Signs Documentation Date Time Temp Pulse Resp B/P Pulse Ox O2 Delivery O2 Flow Rate FiO2 11/04/16 08:01 94 Room Air 11/04/16 07:46 36.6 77 19 154/88 Physical Exam Constitutional: General Apperance: well-nourished Level of Distress: NAD Psychiatric: Mental Status: active & alert, anxious Orientation: to time, to place, to person Head: normocephalic Eyes: Pupils: PERRLA Neck: supple Lungs: Respiratory effort: no dyspnea Auscultation: no wheezing, no rales/crackles Cardiovascular: Apical Impulse: not displaced Heart Auscultation: RRR, normal S1, normal S2, no murmurs Peripheral Pulses: Bruits: none appreciated Abdomen: Bowel Sounds: normal Inspection & Palpation: soft, non-distended Extremities: no edema Assessment and Plan Assessment and Plan 1. Epistaxis - resolved. Packing removed. H&H stable -restart ASA when ok with ENT 2. Atypical chest discomfort with a history of chronic coronary artery disease and coronary artery bypass grafting x3. -recommend outpatient stress test -patient to follow with Cardiology [place] per patient's preference 3. Sick sinus syndrome, status post pacemaker implantation -- interrogation demonstrates normal function with 4.5 years battery life remaining. PAF noted > 1 year ago. No recurrence. No anticoagulation recommended -resume ASA -F/U with [facility] [place] 4. Diastolic dysfunction without signs or symptoms of decompensated heart failure. 5. Acute renal insufficiency superimposed on chronic kidney disease. 6. Hypertension -continue amlodipine 10 mg daily -Toprol increased to 50 mg BID -no SAMMY/ARB with TYREL -if remains elevated, consider nitrates vs hydralazine 7. Ventricular ectopy - asymptomatic Case to be discussed with Dr. Rush. Patient seen and chart, telemetry reviewed. Assessment as above, cardiac status is stable. Blood pressure will need to be followed closely and treated with any increase. Demetris Rush MD Laboratory Results Last 24 Hours Test 11/03/16 11:09 11/03/16 16:21 11/03/16 20:24 11/04/16 02:26 Bedside Glucose 323 mg/dl 148 mg/dl 108 mg/dl 166 mg/dl Test 11/04/16 05:50 11/04/16 06:45 White Blood Count 5.90 K/uL Red Blood Count 4.42 M/uL Hemoglobin 13.9 g/dL Hematocrit 40.5 % Mean Corpuscular Volume 91.6 fL Mean Corpuscular Hemoglobin 31.4 pg Mean Corpuscular Hemoglobin Concent 34.3 g/dl RDW Standard Deviation 46.5 fL RDW Coefficient of Variation 13.9 % Platelet Count 192 K/uL Mean Platelet Volume 10.8 fL Sodium Level 140 mmol/L Potassium Level 4.6 mmol/L Chloride Level 109 mmol/L Carbon Dioxide Level 21 mmol/L Anion Gap 10.0 mmol/L Blood Urea Nitrogen 47 mg/dl Creatinine 2.50 mg/dl Est Creatinine Clear Calc Drug Dose 36.9 ml/min Estimated GFR () 30.3 Estimated GFR (Non- 26.2 BUN/Creatinine Ratio 18.8 Random Glucose 164 mg/dl Calcium Level 8.9 mg/dl Bedside Glucose 158 mg/dl
--- NOTE | 2016-11-04 18:54 | Nephrology Progress Note ---
Nephrology Progress Note Date of Service: Nov 04, 2016. Subjective c/o feeling "miserable" when I saw him on rounds this am at 0805. c/o GUZMAN and ersertional dyspnea; still bothered by nasal packing. no nausea. denies voiding sx or dyspnea or further chest pain Objective Date Time Temp Pulse Resp B/P Pulse Ox O2 Delivery O2 Flow Rate FiO2 11/04/16 16:15 36.5 77 22 155/90 98 Room Air 11/04/16 16:07 94 Room Air 11/04/16 12:03 94 Room Air 11/04/16 11:25 36.5 70 19 158/80 96 Room Air 11/04/16 08:01 94 Room Air 11/04/16 07:46 36.6 77 19 154/88 95 Room Air 11/04/16 05:02 36.6 60 18 162/84 97 Room Air 11/04/16 04:00 Room Air 11/04/16 00:00 Room Air 11/03/16 23:10 36.6 64 20 155/88 97 Room Air 11/03/16 20:00 Room Air 11/03/16 19:37 36.5 74 18 159/68 98 Room Air Physical Exam: GENERAL: Awake, alert, oriented x3. nad; on RA EYES: No scleral icterus. ENT: Moist mucous membranes. NECK: Supple. PULMONARY: scattered inspiratory wheezes; no crackles CARDIAC: RRR 2/6 systolic murmur. ABDOMEN: Bowel sounds positive, soft, nontender. ostomy present EXTREMITIES: no edema NEUROLOGIC: lion, fluent speech DERMATOLOGIC: No rash or ulcers noted. Current Inpatient Medications Medications (Trade) Dose Ordered Sig/All Route Start Time Stop Time Status Last Admin Dose Admin Acetaminophen (Tylenol Tab) 650 mg Q4H PRN PO 11/01/16 06:00 12/01/16 05:59 Oxycodone/ Acetaminophen (Percocet 10-325MG Tab) 1 tab TID PO 11/01/16 14:00 11/15/16 13:59 11/04/16 12:59 1 TAB Glucose (Glucose 40% Gel) 15-30 GRAMS 15 GRAMS... UD PRN PO 11/01/16 09:15 12/01/16 09:14 Glucose (Glucose Chew Tab) 4-8 Tablets 4 Tabl... UD PRN PO 11/01/16 09:15 12/01/16 09:14 Dextrose (Dextrose 50% 50ML Syringe) 25-50ML OF 50% DW IV FOR... UD PRN IV 11/01/16 09:15 12/01/16 09:14 Glucagon (Glucagon Inj) 1 mg UD PRN SQ 11/01/16 09:15 12/01/16 09:14 Albuterol (Ventolin Hfa Inhaler) 2 puffs QID INH 11/01/16 12:00 12/01/16 11:59 11/04/16 17:36 2 PUFFS Amlodipine Besylate (Norvasc Tab) 10 mg DAILY PO 11/02/16 08:00 12/01/16 07:59 11/04/16 08:05 10 MG Atorvastatin Calcium (Lipitor Tab) 20 mg DAILY PO 11/02/16 08:00 12/01/16 07:59 11/04/16 08:05 20 MG Fenofibrate (Tricor Tab) 145 mg DAILY PO 11/02/16 08:00 12/01/16 07:59 11/04/16 08:06 145 MG Salmeterol Xinafoate/ Fluticasone (Advair Diskus 250/50 Inh) 1 puff BID INH 11/01/16 20:00 12/01/16 19:59 11/04/16 08:05 1 PUFF Loratadine (Claritin Tab) 10 mg DAILY PO 11/02/16 08:00 12/01/16 07:59 11/02/16 08:15 10 MG Pregabalin (Lyrica Cap) 300 mg BID PO 11/01/16 20:00 12/01/16 19:59 11/04/16 08:10 300 MG Allopurinol (Zyloprim Tab) 100 mg DAILY PO 11/02/16 08:00 12/02/16 07:59 11/04/16 08:06 100 MG Nitroglycerin (Nitrostat Tab) 0.4 mg PRN PRN SL 11/01/16 13:15 12/01/16 13:14 Clonidine HCl (Catapres Tab) 0.1 mg Q4H PRN PO 11/01/16 13:15 12/01/16 13:14 11/02/16 23:37 0.1 MG Doxycycline Hyclate (Vibramycin Cap) 100 mg BID PO 11/01/16 20:00 11/11/16 19:59 11/04/16 08:06 100 MG Insulin Aspart (novoLOG ASPART) SLIDING SCALE G... ACHS SC 11/01/16 22:00 12/01/16 21:59 11/04/16 17:44 7 UNITS Miscellaneous Information (Consult Glycemic Management Pharmacy) 1 ea UD N/A 11/02/16 09:41 12/02/16 09:40 Diazepam (Valium Tab) 5 mg TID@1000,1600,2200 PO 11/02/16 10:00 12/02/16 09:59 11/04/16 17:36 5 MG Oxymetazoline HCl (Afrin 0.05% Nasal [place]) 2 sprays Q12 NA 11/03/16 09:00 12/03/16 08:59 11/04/16 08:04 2 SPRAYS Metoprolol Succinate (Toprol Xl Tab) 50 mg BID PO 11/03/16 21:00 12/03/16 20:59 11/04/16 08:05 50 MG Insulin Glargine (Lantus Solostar Pen) 15 units for BSG 120... BID SC 11/03/16 21:00 12/03/16 20:59 11/04/16 08:17 15 UNIT Sodium Chloride ([place] Nasal [place]) 1 sprays Q1HWA NA 11/03/16 15:00 12/03/16 14:59 11/04/16 17:55 1 SPRAYS Last 24 Hours Test 11/03/16 20:24 11/04/16 02:26 11/04/16 05:50 11/04/16 06:45 Bedside Glucose 108 mg/dl 166 mg/dl 158 mg/dl White Blood Count 5.90 K/uL Red Blood Count 4.42 M/uL Hemoglobin 13.9 g/dL Hematocrit 40.5 % Mean Corpuscular Volume 91.6 fL Mean Corpuscular Hemoglobin 31.4 pg Mean Corpuscular Hemoglobin Concent 34.3 g/dl RDW Standard Deviation 46.5 fL RDW Coefficient of Variation 13.9 % Platelet Count 192 K/uL Mean Platelet Volume 10.8 fL Sodium Level 140 mmol/L Potassium Level 4.6 mmol/L Chloride Level 109 mmol/L Carbon Dioxide Level 21 mmol/L Anion Gap 10.0 mmol/L Blood Urea Nitrogen 47 mg/dl Creatinine 2.50 mg/dl Est Creatinine Clear Calc Drug Dose 36.9 ml/min Estimated GFR () 30.3 Estimated GFR (Non- 26.2 BUN/Creatinine Ratio 18.8 Random Glucose 164 mg/dl Calcium Level 8.9 mg/dl Test 11/04/16 11:17 11/04/16 15:59 Bedside Glucose 249 mg/dl 147 mg/dl Assessment & Plan 66 y/o M w/ CKD, recurrent epistaxis, longstanding DM, at times uncontrolled HTN , CAD s/p CABG/pacer, heavy EtOH use, partial colectomy after C diff recently hospitalized in [place] for chest pain and epistaxis and w/ worsening renal function in setting of marked HTN, acute on chronic HF: discharged 10/25. No mention of receiving IV contrast that admission. His baseline creatinine had been 1.5-1.7 as of 04/2016; it was 2.2 on 10/17; 1.8 on 10/21; 3.1 on 10/22; 2.4 on 10/25 at [place] d/c. On admission here again after presenting with chest pain and recurrent epistaxis, creatinine was 3.7 on 10/31. Nonoliguric acute kidney injury on chronic kidney disease with baseline creatinine of 1.5-1.7 and recent TYREL with creatinine up to 3.14 during the previous hospitalization in [place] -no renal artery stenosis; bland urine sediment except glucosuria; uric acid and CK are wnl -slow improvement w/ conservative measures; suspect ATN related to a medication/ prior TYREL but cannot prove this -cont daily bmp, strict I/O, avoidance of meds that can worsen renal function in this phase of TYREL recovery; not anemic and chemistries acceptable HTN cardiology following and primary service following closely as well -BB increased today -cont max dose amlodipine -agree w/ nitrates v hydralazine assuming he has enough benzos on board and bp still elevated if necessary Gout. current allopurinol dose acceptable
--- NOTE | 2016-11-04 19:33 | Progress Note ---
Medicine Progress Note Date & Time of Visit: Nov 04, 2016 at 16:32. Subjective Still reporting shortness of breath, especially with ambulation Creat hasn't changed much today, 2.5 Rhino rocket removed from R nare yesterday and no bleeding has occurred with H/ H stable Nephro following Reports some chest soreness today Objective Last 8 Hrs Date Time Temp Pulse Resp B/P Pulse Ox O2 Delivery O2 Flow Rate FiO2 11/04/16 16:15 36.5 77 22 155/90 98 Room Air 11/04/16 16:07 94 Room Air 11/04/16 12:03 94 Room Air 11/04/16 11:25 36.5 70 19 158/80 96 Room Air Physical Exam: GEN: WNWD, in no acute distress, alert and appropriate, appears calm HEENT: NC/AT, normal sclerae, no bleeding from nares CARDIO: reg rate, S1/2 heard without m/g/r LUNGS: CTA bilaterally, no crackles, rales or wheezes, good diaphragmatic excursion ABD: soft, non-tender, non-distended, no rebound or guarding, colostomy bag in place, BS present EXTREMITY: no LE swelling or edema, extremities are warm and well-perfused NEURO: CN 2-12 grossly intact, no gross focal deficits. MUSC: developed musculature, moves all extremities equally. SKIN: warm and dry Laboratory Results: Last 24 Hours Test 11/03/16 20:24 11/04/16 02:26 11/04/16 05:50 11/04/16 06:45 Bedside Glucose 108 mg/dl 166 mg/dl 158 mg/dl White Blood Count 5.90 K/uL Red Blood Count 4.42 M/uL Hemoglobin 13.9 g/dL Hematocrit 40.5 % Mean Corpuscular Volume 91.6 fL Mean Corpuscular Hemoglobin 31.4 pg Mean Corpuscular Hemoglobin Concent 34.3 g/dl RDW Standard Deviation 46.5 fL RDW Coefficient of Variation 13.9 % Platelet Count 192 K/uL Mean Platelet Volume 10.8 fL Sodium Level 140 mmol/L Potassium Level 4.6 mmol/L Chloride Level 109 mmol/L Carbon Dioxide Level 21 mmol/L Anion Gap 10.0 mmol/L Blood Urea Nitrogen 47 mg/dl Creatinine 2.50 mg/dl Est Creatinine Clear Calc Drug Dose 36.9 ml/min Estimated GFR () 30.3 Estimated GFR (Non- 26.2 BUN/Creatinine Ratio 18.8 Random Glucose 164 mg/dl Calcium Level 8.9 mg/dl Test 11/04/16 11:17 11/04/16 15:59 Bedside Glucose 249 mg/dl 147 mg/dl Assessment & Plan 66 yoM recently released from [facility], presents to [facility] as a transfer from ER for recurrent epistaxis with acute renal failure. 7. Ventricular ectopy - asymptomatic ACUTE KIDNEY INJURY CKD III with baseline creatinine around 1.5. Creatinine-->3.43-->2.9-->2.6-->2.7 -->2.5 today TYREL may be due to volume depletion from combination of ileostomy output + diuretic therapy. FeNa was >2%,poss 'ATN from recent hospitalization Cont holding torsemide. IV fluids-held after CXR revealed some congestion on 11/02. Nephro following, appreciate continued recs EPISTAXIS 2 recent episodes of severe epistaxis prior to transfer to [facility] Right nostril cauterized / packed in [place] ED. Pulled on 11/03 and uneventful for past 24 hours Cont nasal saline and Afrin as instructed Hold aspirin-restart when OK with ENT (Dr. Victor Manuel Teixeira) Doxy to cover staph/strep species while nasal packing is in place and while we are hospitalized If patient rebleeds, he will be transferred to [place]. No anemia at this time. SHORTNESS OF BREATH: -may be 2/2 diastolic heart failure, some swelling in LE since admission per patient, no JVD present-->this may be a side effect from the [facility] -recent treatment with Demedex caused ARF, so diuretics are on hold at this point -Nephro following and agrees with holding diuretics at this time -not in ACS at this time with grade II DD on echo this admission -repeating CXR in am as he is not improved. ETOH USE [place] use of benzos as needed Diazepam scheduled TID Doing well on current scheduled dosing CORONARY ARTERY DISEASE atypical chest pain prior to admission s/p CABG in 2014 Holding aspirin as above Continue metoprolol and amlodipine. Repeat EKG reveals paced rhythm with abnormalities PM interrogation 11/03 and demonstrates normal function with 4.5 years battery life remaining. PAF noted > 1 year ago. No recurrence. No anticoagulation indicated per Cards evaluation, however, needs to continue with q3 month PM checks Troponin is negative, however, with h/o atypical chest pain and history patient will need an outpatient stress test. He doesn't know who his home health care provider is, so this can be coordinated through PCP office. Will advise him at discharge Cont to monitor on telemetry at this time. HYPERTENSION h/o FREIDA h/o stenting per EPIC records Continue metoprolol and amlodipine. Toprol CL 50mg was increased to BID Cont scheduled diazepam to reduce agitation in this man with h/o alcohol abuse. However, still elevated > goal 140 systolic Will add Hydralazine 10 TID now COPD Continue bronchodilators. DM TYPE 2 Hold oral agents due to acute illness / TYREL. Hgb A1C-7.8 Lantus / NovoLog per protocol. GOUT Continue allopurinol. CHRONIC PAIN Continue usual meds. DEPRESSION/ANXIETY Offered Psychiatry consultation initially; patient declined. VTE PROPHYLAXIS No anticoagulants due to epistaxis. SCD's. Ambulate. RESUSCITATION STATUS Full code. DISPOSITION Cont telemetry monitoring Expected discharge to home once renal function improves to baseline 1.5. Medical follow-up withShyla, Dr. Stephenson. Carmen Moyer DO [facility] Hospitalist Consultants: ENT, Cards, Nephro Current Inpatient Medications: Current Inpatient Medications Medications (Trade) Dose Ordered Sig/All Route Start Time Stop Time Status Last Admin Dose Admin Acetaminophen (Tylenol Tab) 650 mg Q4H PRN PO 11/01/16 06:00 12/01/16 05:59 Oxycodone/ Acetaminophen (Percocet 10-325MG Tab) 1 tab TID PO 11/01/16 14:00 11/15/16 13:59 11/04/16 12:59 1 TAB Glucose (Glucose 40% Gel) 15-30 GRAMS 15 GRAMS... UD PRN PO 11/01/16 09:15 12/01/16 09:14 Glucose (Glucose Chew Tab) 4-8 Tablets 4 Tabl... UD PRN PO 11/01/16 09:15 12/01/16 09:14 Dextrose (Dextrose 50% 50ML Syringe) 25-50ML OF 50% DW IV FOR... UD PRN IV 11/01/16 09:15 12/01/16 09:14 Glucagon (Glucagon Inj) 1 mg UD PRN SQ 11/01/16 09:15 12/01/16 09:14 Albuterol (Ventolin Hfa Inhaler) 2 puffs QID INH 11/01/16 12:00 12/01/16 11:59 11/04/16 12:59 2 PUFFS Amlodipine Besylate (Norvasc Tab) 10 mg DAILY PO 11/02/16 08:00 12/01/16 07:59 11/04/16 08:05 10 MG Atorvastatin Calcium (Lipitor Tab) 20 mg DAILY PO 11/02/16 08:00 12/01/16 07:59 11/04/16 08:05 20 MG Fenofibrate (Tricor Tab) 145 mg DAILY PO 11/02/16 08:00 12/01/16 07:59 11/04/16 08:06 145 MG Salmeterol Xinafoate/ Fluticasone (Advair Diskus 250/50 Inh) 1 puff BID INH 11/01/16 20:00 12/01/16 19:59 11/04/16 08:05 1 PUFF Loratadine (Claritin Tab) 10 mg DAILY PO 11/02/16 08:00 12/01/16 07:59 11/02/16 08:15 10 MG Pregabalin (Lyrica Cap) 300 mg BID PO 11/01/16 20:00 12/01/16 19:59 11/04/16 08:10 300 MG Allopurinol (Zyloprim Tab) 100 mg DAILY PO 11/02/16 08:00 12/02/16 07:59 11/04/16 08:06 100 MG Nitroglycerin (Nitrostat Tab) 0.4 mg PRN PRN SL 11/01/16 13:15 12/01/16 13:14 Clonidine HCl (Catapres Tab) 0.1 mg Q4H PRN PO 11/01/16 13:15 12/01/16 13:14 11/02/16 23:37 0.1 MG Doxycycline Hyclate (Vibramycin Cap) 100 mg BID PO 11/01/16 20:00 11/11/16 19:59 11/04/16 08:06 100 MG Insulin Aspart (novoLOG ASPART) SLIDING SCALE G... ACHS SC 11/01/16 22:00 12/01/16 21:59 11/04/16 13:02 11 UNITS Miscellaneous Information (Consult Glycemic Management Pharmacy) 1 ea UD N/A 11/02/16 09:41 12/02/16 09:40 Diazepam (Valium Tab) 5 mg TID@1000,1600,2200 PO 11/02/16 10:00 12/02/16 09:59 11/04/16 10:42 5 MG Oxymetazoline HCl (Afrin 0.05% Nasal [place]) 2 sprays Q12 NA 11/03/16 09:00 12/03/16 08:59 11/04/16 08:04 2 SPRAYS Metoprolol Succinate (Toprol Xl Tab) 50 mg BID PO 11/03/16 21:00 12/03/16 20:59 11/04/16 08:05 50 MG Insulin Glargine (Lantus Solostar Pen) 15 units for BSG 120... BID SC 11/03/16 21:00 12/03/16 20:59 11/04/16 08:17 15 UNIT Sodium Chloride ([place] Nasal [place]) 1 sprays Q1HWA NA 11/03/16 15:00 12/03/16 14:59 11/04/16 14:52 1 SPRAYS
[2016-11-04] MEDS: HydrALAZINE 10 MG TAB PO SCH (21:11)
[2016-11-05] VITALS (8 sets, daily range): BP systolic 135–165; BP diastolic 70–95; PULSE 49–71; TEMP 36.4–36.7; O2SAT 95–100
[2016-11-05 05:28] LABS: HEMATOCRIT 39.9 % (42-52)
[2016-11-05 05:58] LABS: BUN/CREATININE RATIO 19.4 (10-20); CALCIUM 8.8 mg/dl (8.5-10.1); CREATININE 2.5 mg/dl (0.60-1.40); POTASSIUM 4.6 mmol/L (3.5-5.1)
[2016-11-05] MEDS: SODIUM CHLORIDE 0.65% NA SOLN 45 ML (OCEAN) SCH ×17 (05:58→22:24)
[2016-11-05] MEDS: INSULIN ASPART 100 UNITS/ML 3 ML PEN SC SCH ×4 (07:00→20:51)
[2016-11-05] MEDS: ALBUTEROL HFA 8 GM INHALER INH SCH ×4 (08:03→20:50)
[2016-11-05] MEDS: OXYMETAZOLINE HCL 0.05% NA SPR 15 ML BTL SCH ×2 (08:03→20:52)
[2016-11-05] MEDS: FLUTICASONE/SALMETEROL 250/50 (ADVAIR) 14 PUFF/1 INHALER INH SCH ×2 (08:03→20:50)
[2016-11-05] MEDS: METOPROLOL SUCC 50MG EXT REL TAB PO SCH ×2 (08:04→20:51)
[2016-11-05] MEDS: DOXYCYCLINE HYCLATE 100 MG CAP PO SCH ×2 (08:05→20:51)
[2016-11-05] MEDS: FENOFIBRATE 145 MG TAB PO SCH (08:05)
[2016-11-05] MEDS: ALLOPURINOL 100 MG TAB PO SCH (08:05)
[2016-11-05] MEDS: HydrALAZINE 10 MG TAB PO SCH ×3 (08:05→20:51)
[2016-11-05] MEDS: AMLODIPINE BESYLATE 5 MG TAB PO SCH (08:06)
--- NOTE | 2016-11-05 08:09 | DIAGNOSTIC IMAGING REPORT ---
CHEST 2 VIEWS ROUTINE CLINICAL HISTORY: shortness of breath that is persistent dyspnea COMPARISON STUDY: 10/25/2016 FINDINGS: Moderate stable cardiomegaly. Prior median sternotomy and bipolar cardiac pacemaker placement. Diaphragms smooth. Lungs are clear. Improved from the prior study. IMPRESSION: Moderate stable cardiomegaly. No current evidence for congestive failure Electronically signed by: Nehemiah Quiroz M.D. 11/05/2016 8:08 AM Dictated Date/Time: 11/05/2016 8:07 AM
[2016-11-05] MEDS: OXYCODONE/ACETAMINOPHEN 10/325MG TAB PO SCH ×3 (08:12→20:52)
[2016-11-05] MEDS: PREGABALIN 150 MG CAP PO SCH ×2 (08:13→20:51)
[2016-11-05] MEDS: ATORVASTATIN 20 MG TAB PO SCH (08:13)
[2016-11-05] MEDS: LORATADINE 10 MG TAB PO SCH (08:17)
[2016-11-05] MEDS: INSULIN GLARGINE SOLOSTAR 100 UNITS/ML 3 ML PEN SC SCH ×2 (08:23→20:51)
[2016-11-05] MEDS: DIAZEPAM 5MG TAB PO SCH ×3 (10:00→20:52)
[2016-11-05] MEDS ORDERED: DIAZEPAM 5MG TAB PO STA (16:28)
--- NOTE | 2016-11-05 16:32 | Progress Note ---
Medicine Progress Note Date & Time of Visit: Nov 05, 2016 at 16:08. Subjective Pt was seen and examined Lying in bed with no distress Pt said that he started to feel a little better He is not too happy because his Valium was decrease to half pt denies any chest pain, palpitation, dizziness Pt said that when it snows like that, it causes him to have anxiety because if he has an emergency, he would not have any access with transportation because he lives on the [place] Objective Last 8 Hrs Date Time Temp Pulse Resp B/P Pulse Ox O2 Delivery O2 Flow Rate FiO2 11/05/16 15:25 36.6 68 18 144/70 99 Room Air 11/05/16 12:00 Room Air 11/05/16 11:29 36.7 67 18 151/80 97 Room Air Physical Exam: General- No respiratory distress Head- atraumatic Eyes- PERRL, EOMI ENT- oropharynx clear Neck- supple, no JVD Lungs- clear to auscultation and percussion Heart- regular rhythm; no murmur Abdomen- normal bowel sounds, soft Extremities-no calf tenderness Neuro- alert, oriented x 3; PERRL Skin- warm & dry Laboratory Results: Last 24 Hours Test 11/04/16 20:22 11/05/16 05:11 11/05/16 06:42 11/05/16 11:18 Bedside Glucose 207 mg/dl 153 mg/dl 267 mg/dl Hemoglobin 13.7 g/dL Hematocrit 39.9 % Sodium Level 138 mmol/L Potassium Level 4.6 mmol/L Chloride Level 108 mmol/L Carbon Dioxide Level 18 mmol/L Anion Gap 12.0 mmol/L Blood Urea Nitrogen 49 mg/dl Creatinine 2.50 mg/dl Est Creatinine Clear Calc Drug Dose 36.9 ml/min Estimated GFR () 30.3 Estimated GFR (Non- 26.2 BUN/Creatinine Ratio 19.4 Random Glucose 142 mg/dl Calcium Level 8.8 mg/dl Assessment & Plan ACUTE KIDNEY INJURY CKD III with baseline creatinine around 1.5. Creatinine on admission was 3.43, then trending to 2.9-->2.6-->2.7 -->2.5 --> 2.5 today TYREL may be due to volume depletion from combination of ileostomy output + diuretic therapy. FeNa was >2%,poss 'ATN from recent hospitalization Cont holding diuretic. Nephrology on board EPISTAXIS 2 recent episodes of severe epistaxis prior to transfer to [facility] Right nostril cauterized / packed in [place] ED. Pulled on 11/03 and uneventful for past 24 hours Cont nasal saline and Afrin as instructed Hold aspirin-restart when OK with ENT (Dr. Victor Manuel Teixeira) Doxy to cover staph/strep species while nasal packing is in place and while we are hospitalized If patient rebleeds, he will be transferred to [place]. No bleeding SHORTNESS OF BREATH: -Possible related to diastolic heart failure -recent treatment with Demedex caused ARF, so diuretics are on hold at this point -As Nephro agreed to continue holding diuretics at this time -CXR in am showed moderate stable cardiomegaly. No current evidence for congestive failure ETOH USE [place] use of benzo as needed Increase diazepam to his previous dose 10mg TID CORONARY ARTERY DISEASE atypical chest pain prior to admission s/p CABG in 2014 Holding aspirin due to epistaxis Continue metoprolol and amlodipine. Repeat EKG reveals paced rhythm with abnormalities PM interrogation 11/03 and demonstrates normal function with 4.5 years battery life remaining. PAF noted > 1 year ago. No recurrence. No anticoagulation indicated per Cards evaluation, however, needs to continue with q3 month PM checks Troponin is negative, however, with h/o atypical chest pain and history patient will need an outpatient stress test. Will advise him at discharge Cont to monitor on telemetry at this time. Asymptomatic HYPERTENSION h/o FREIDA h/o stenting per EPIC records Continue metoprolol and amlodipine. Continue Toprol CL 50mg BID Will add Hydralazine 10 TID now Stable COPD Continue bronchodilators. DM TYPE 2 Hold oral agents due to acute illness / TYREL. Hgb A1C-7.8 (10/23/16) Continue insulin sliding scale Lantus / NovoLog per protocol. GOUT Continue allopurinol. CHRONIC PAIN Continue usual meds. DEPRESSION/ANXIETY Pt refused psych consult VTE PROPHYLAXIS No anticoagulants due to epistaxis. SCD's. Ambulate. RESUSCITATION STATUS Full code. DISPOSITION Expected discharge to home once renal function improves to baseline 1.5. Medical follow-up with PCP, Dr. Stephenson. Consultants: ENT, Cards, Nephro Current Inpatient Medications: Current Inpatient Medications Medications (Trade) Dose Ordered Sig/All Route Start Time Stop Time Status Last Admin Dose Admin Acetaminophen (Tylenol Tab) 650 mg Q4H PRN PO 11/01/16 06:00 12/01/16 05:59 Oxycodone/ Acetaminophen (Percocet 10-325MG Tab) 1 tab TID PO 11/01/16 14:00 11/15/16 13:59 11/05/16 13:27 1 TAB Glucose (Glucose 40% Gel) 15-30 GRAMS 15 GRAMS... UD PRN PO 11/01/16 09:15 12/01/16 09:14 Glucose (Glucose Chew Tab) 4-8 Tablets 4 Tabl... UD PRN PO 11/01/16 09:15 12/01/16 09:14 Dextrose (Dextrose 50% 50ML Syringe) 25-50ML OF 50% DW IV FOR... UD PRN IV 11/01/16 09:15 12/01/16 09:14 Glucagon (Glucagon Inj) 1 mg UD PRN SQ 11/01/16 09:15 12/01/16 09:14 Albuterol (Ventolin Hfa Inhaler) 2 puffs QID INH 11/01/16 12:00 12/01/16 11:59 11/05/16 13:06 2 PUFFS Amlodipine Besylate (Norvasc Tab) 10 mg DAILY PO 11/02/16 08:00 12/01/16 07:59 11/05/16 08:06 10 MG Atorvastatin Calcium (Lipitor Tab) 20 mg DAILY PO 11/02/16 08:00 12/01/16 07:59 11/05/16 08:13 20 MG Fenofibrate (Tricor Tab) 145 mg DAILY PO 11/02/16 08:00 12/01/16 07:59 11/05/16 08:05 145 MG Salmeterol Xinafoate/ Fluticasone (Advair Diskus 250/50 Inh) 1 puff BID INH 11/01/16 20:00 12/01/16 19:59 11/05/16 08:03 1 PUFF Loratadine (Claritin Tab) 10 mg DAILY PO 11/02/16 08:00 12/01/16 07:59 11/02/16 08:15 10 MG Pregabalin (Lyrica Cap) 300 mg BID PO 11/01/16 20:00 12/01/16 19:59 11/05/16 08:13 300 MG Allopurinol (Zyloprim Tab) 100 mg DAILY PO 11/02/16 08:00 12/02/16 07:59 11/05/16 08:05 100 MG Nitroglycerin (Nitrostat Tab) 0.4 mg PRN PRN SL 11/01/16 13:15 12/01/16 13:14 Clonidine HCl (Catapres Tab) 0.1 mg Q4H PRN PO 11/01/16 13:15 12/01/16 13:14 11/02/16 23:37 0.1 MG Doxycycline Hyclate (Vibramycin Cap) 100 mg BID PO 11/01/16 20:00 11/11/16 19:59 11/05/16 08:05 100 MG Insulin Aspart (novoLOG ASPART) SLIDING SCALE G... ACHS SC 11/01/16 22:00 12/01/16 21:59 11/05/16 11:00 11 UNITS Miscellaneous Information (Consult Glycemic Management Pharmacy) 1 ea UD N/A 11/02/16 09:41 12/02/16 09:40 Diazepam (Valium Tab) 5 mg TID@1000,1600,2200 PO 11/02/16 10:00 12/02/16 09:59 11/04/16 21:12 5 MG Oxymetazoline HCl (Afrin 0.05% Nasal [place]) 2 sprays Q12 NA 11/03/16 09:00 12/03/16 08:59 11/05/16 08:03 2 SPRAYS Metoprolol Succinate (Toprol Xl Tab) 50 mg BID PO 11/03/16 21:00 12/03/16 20:59 11/05/16 08:04 50 MG Insulin Glargine (Lantus Solostar Pen) 15 units for BSG 120... BID SC 11/03/16 21:00 12/03/16 20:59 11/05/16 08:23 15 UNIT Sodium Chloride ([place] Nasal [place]) 1 sprays Q1HWA NA 11/03/16 15:00 12/03/16 14:59 11/05/16 13:25 1 SPRAYS Hydralazine HCl (Apresoline Tab) 10 mg TID PO 11/04/16 21:00 3/1/17 20:59 11/05/16 13:27 10 MG
--- NOTE | 2016-11-05 17:45 | Nephrology Progress Note ---
Nephrology Progress Note Date of Service: Nov 05, 2016. Subjective c/o marked L shoulder pain/ CHENG when I saw him on rounds this am at 0935. c/o GUZMAN ongoing . no nausea. denies voiding sx but not sure if voidign fully. no dyspnea or further chest pain Objective Date Time Temp Pulse Resp B/P Pulse Ox O2 Delivery O2 Flow Rate FiO2 11/05/16 16:00 Room Air 11/05/16 15:25 36.6 68 18 144/70 99 Room Air 11/05/16 12:00 Room Air 11/05/16 11:29 36.7 67 18 151/80 97 Room Air 11/05/16 08:00 Room Air 11/05/16 07:28 36.5 60 18 155/95 95 Room Air 11/05/16 04:00 36.6 60 18 137/78 97 Room Air 11/05/16 04:00 Room Air 11/05/16 00:01 Room Air 11/05/16 00:00 36.5 71 18 144/75 97 Room Air 11/04/16 20:00 96 Room Air 11/04/16 19:50 36.9 70 16 143/67 96 Room Air Physical Exam: GENERAL: Awake, alert, oriented x3. nad; on RA EYES: No scleral icterus. ENT: Moist mucous membranes. NECK: Supple. PULMONARY: scattered inspiratory wheezes; no crackles CARDIAC: RRR 2/6 systolic murmur. ABDOMEN: Bowel sounds positive, soft, nontender. ostomy present EXTREMITIES: no edema NEUROLOGIC: lion, fluent speech DERMATOLOGIC: No rash or ulcers noted. Current Inpatient Medications Medications (Trade) Dose Ordered Sig/All Route Start Time Stop Time Status Last Admin Dose Admin Acetaminophen (Tylenol Tab) 650 mg Q4H PRN PO 11/01/16 06:00 12/01/16 05:59 Oxycodone/ Acetaminophen (Percocet 10-325MG Tab) 1 tab TID PO 11/01/16 14:00 11/15/16 13:59 11/05/16 13:27 1 TAB Glucose (Glucose 40% Gel) 15-30 GRAMS 15 GRAMS... UD PRN PO 11/01/16 09:15 12/01/16 09:14 Glucose (Glucose Chew Tab) 4-8 Tablets 4 Tabl... UD PRN PO 11/01/16 09:15 12/01/16 09:14 Dextrose (Dextrose 50% 50ML Syringe) 25-50ML OF 50% DW IV FOR... UD PRN IV 11/01/16 09:15 12/01/16 09:14 Glucagon (Glucagon Inj) 1 mg UD PRN SQ 11/01/16 09:15 12/01/16 09:14 Albuterol (Ventolin Hfa Inhaler) 2 puffs QID INH 11/01/16 12:00 12/01/16 11:59 11/05/16 13:06 2 PUFFS Amlodipine Besylate (Norvasc Tab) 10 mg DAILY PO 11/02/16 08:00 12/01/16 07:59 11/05/16 08:06 10 MG Atorvastatin Calcium (Lipitor Tab) 20 mg DAILY PO 11/02/16 08:00 12/01/16 07:59 11/05/16 08:13 20 MG Fenofibrate (Tricor Tab) 145 mg DAILY PO 11/02/16 08:00 12/01/16 07:59 11/05/16 08:05 145 MG Salmeterol Xinafoate/ Fluticasone (Advair Diskus 250/50 Inh) 1 puff BID INH 11/01/16 20:00 12/01/16 19:59 11/05/16 08:03 1 PUFF Loratadine (Claritin Tab) 10 mg DAILY PO 11/02/16 08:00 12/01/16 07:59 11/02/16 08:15 10 MG Pregabalin (Lyrica Cap) 300 mg BID PO 11/01/16 20:00 12/01/16 19:59 11/05/16 08:13 300 MG Allopurinol (Zyloprim Tab) 100 mg DAILY PO 11/02/16 08:00 12/02/16 07:59 11/05/16 08:05 100 MG Nitroglycerin (Nitrostat Tab) 0.4 mg PRN PRN SL 11/01/16 13:15 12/01/16 13:14 Clonidine HCl (Catapres Tab) 0.1 mg Q4H PRN PO 11/01/16 13:15 12/01/16 13:14 11/02/16 23:37 0.1 MG Doxycycline Hyclate (Vibramycin Cap) 100 mg BID PO 11/01/16 20:00 11/11/16 19:59 11/05/16 08:05 100 MG Insulin Aspart (novoLOG ASPART) SLIDING SCALE G... ACHS SC 11/01/16 22:00 12/01/16 21:59 11/05/16 11:00 11 UNITS Miscellaneous Information (Consult Glycemic Management Pharmacy) 1 ea UD N/A 11/02/16 09:41 12/02/16 09:40 Oxymetazoline HCl (Afrin 0.05% Nasal [place]) 2 sprays Q12 NA 11/03/16 09:00 12/03/16 08:59 11/05/16 08:03 2 SPRAYS Metoprolol Succinate (Toprol Xl Tab) 50 mg BID PO 11/03/16 21:00 12/03/16 20:59 11/05/16 08:04 50 MG Insulin Glargine (Lantus Solostar Pen) 15 units for BSG 120... BID SC 11/03/16 21:00 12/03/16 20:59 11/05/16 08:23 15 UNIT Sodium Chloride ([place] Nasal [place]) 1 sprays Q1HWA NA 11/03/16 15:00 12/03/16 14:59 11/05/16 16:23 1 SPRAYS Hydralazine HCl (Apresoline Tab) 10 mg TID PO 11/04/16 21:00 12/04/16 20:59 11/05/16 13:27 10 MG Diazepam (Valium Tab) 10 mg TID@1000,1600,2200 PO 11/05/16 16:30 12/05/16 16:29 Future hold Last 24 Hours Test 11/04/16 20:22 11/05/16 05:11 11/05/16 06:42 11/05/16 11:18 Bedside Glucose 207 mg/dl 153 mg/dl 267 mg/dl Hemoglobin 13.7 g/dL Hematocrit 39.9 % Sodium Level 138 mmol/L Potassium Level 4.6 mmol/L Chloride Level 108 mmol/L Carbon Dioxide Level 18 mmol/L Anion Gap 12.0 mmol/L Blood Urea Nitrogen 49 mg/dl Creatinine 2.50 mg/dl Est Creatinine Clear Calc Drug Dose 36.9 ml/min Estimated GFR () 30.3 Estimated GFR (Non- 26.2 BUN/Creatinine Ratio 19.4 Random Glucose 142 mg/dl Calcium Level 8.8 mg/dl Test 11/05/16 16:04 Bedside Glucose 131 mg/dl Assessment & Plan 66 y/o M w/ CKD, recurrent epistaxis, longstanding DM, at times uncontrolled HTN , CAD s/p CABG/pacer, heavy EtOH use, partial colectomy after C diff recently hospitalized in [place] for chest pain, GUZMAN, and epistaxis and w/ worsening renal function in setting of marked HTN, acute on chronic HF: discharged 10/25. No mention of receiving IV contrast that admission. His baseline creatinine had been 1.5-1.7 as of 04/2016; it was 2.2 on 10/17; 1.8 on 10/21; 3.1 on 10/22; 2.4 on 10/25 at [place] d/c. On admission here again after presenting with chest pain and recurrent epistaxis, creatinine was 3.7 on 10/31. Nonoliguric acute kidney injury on chronic kidney disease with baseline creatinine of 1.5-1.7 (though no recent data) and recent TYREL with creatinine up to 3.14 during the previous hospitalization in [place] -no renal artery stenosis; bland urine sediment except glucosuria; uric acid and CK are wnl -slow improvement (though today plateau'd) w/ conservative measures; suspect ATN related to a medication/prior TYREL but cannot prove this -cont daily bmp, strict I/O, avoidance of meds that can worsen renal function in this phase of TYREL recovery; not anemic and chemistries acceptable HTN cardiology following and primary service following closely as well -BB increased yesterday -cont max dose amlodipine -hydralazine added today -ensure he has enough benzos on board and bp still elevated if necessary Gout. current allopurinol dose acceptable
[2016-11-06] VITALS (9 sets, daily range): BP systolic 108–158; BP diastolic 62–98; PULSE 42–79; TEMP 36.6–36.7; O2SAT 95–97
[2016-11-06] MEDS: SODIUM CHLORIDE 0.65% NA SOLN 45 ML (OCEAN) SCH ×17 (05:46→21:46)
[2016-11-06 06:39] LABS: MEAN CELL VOLUME 92.5 fL (80-100); MEAN CORPUSCULAR HEMOGLOBIN 32.2 pg (25-34); MEAN CORPUSCULAR HGB CONC 34.8 g/dl (32-36); MEAN PLATELET VOLUME 11.1 fL (7.4-10.4); PLATELET COUNT 243 K/uL (130-400); RED BLOOD COUNT 4.54 M/uL (4.7-6.1); WHITE BLOOD COUNT 6.92 K/uL (4.8-10.8)
[2016-11-06 07:13] LABS: BUN/CREATININE RATIO 22.2 (10-20); CALCIUM 8.7 mg/dl (8.5-10.1); CREATININE 2.7 mg/dl (0.60-1.40); POTASSIUM 4.5 mmol/L (3.5-5.1)
[2016-11-06] MEDS: LORATADINE 10 MG TAB PO SCH (09:00)
[2016-11-06] MEDS: FLUTICASONE/SALMETEROL 250/50 (ADVAIR) 14 PUFF/1 INHALER INH SCH ×2 (09:32→21:35)
[2016-11-06] MEDS: ALBUTEROL HFA 8 GM INHALER INH SCH ×4 (09:32→21:36)
[2016-11-06] MEDS: OXYMETAZOLINE HCL 0.05% NA SPR 15 ML BTL SCH ×2 (09:33→21:36)
[2016-11-06] MEDS: ALLOPURINOL 100 MG TAB PO SCH (09:35)
[2016-11-06] MEDS: HydrALAZINE 10 MG TAB PO SCH ×3 (09:36→21:37)
[2016-11-06] MEDS: FENOFIBRATE 145 MG TAB PO SCH (09:37)
[2016-11-06] MEDS: AMLODIPINE BESYLATE 5 MG TAB PO SCH (09:37)
[2016-11-06] MEDS: METOPROLOL SUCC 50MG EXT REL TAB PO SCH ×2 (09:37→21:38)
[2016-11-06] MEDS: ATORVASTATIN 20 MG TAB PO SCH (09:37)
[2016-11-06] MEDS: DOXYCYCLINE HYCLATE 100 MG CAP PO SCH ×2 (09:37→21:39)
--- NOTE | 2016-11-06 09:40 | Nephrology Progress Note ---
Nephrology Progress Note Date of Service: Nov 06, 2016. Subjective no changes in chronic musculoskeletal pain/ denies dyspnea. c/o GUZMAN ongoing . no nausea. denies voiding sx-clarified /corrected bladder scan orders w/ nursing. pt changes his own ostomy including in hospital but cannot say if change in ostomy output or not. no dyspnea or further chest pain Objective Date Time Temp Pulse Resp B/P Pulse Ox O2 Delivery O2 Flow Rate FiO2 11/06/16 08:34 97 Room Air 11/06/16 07:53 36.6 57 19 127/69 97 Room Air 11/06/16 07:50 Room Air 11/05/16 23:55 Room Air 11/05/16 22:49 36.4 70 16 142/83 96 Room Air 11/05/16 21:40 100 Room Air 11/05/16 21:40 36.4 69 18 135/73 100 Room Air 11/05/16 21:36 36.4 49 19 98 11/05/16 20:30 Room Air 11/05/16 20:15 36.4 49 19 165/82 98 Room Air 11/05/16 16:00 Room Air 11/05/16 15:25 36.6 68 18 144/70 99 Room Air 11/05/16 12:00 Room Air 11/05/16 11:29 36.7 67 18 151/80 97 Room Air Physical Exam: GENERAL: Awake, alert, oriented x3. nad; on RA EYES: No scleral icterus. ENT: Moist mucous membranes. NECK: Supple. PULMONARY: scattered inspiratory wheezes; no crackles CARDIAC: RRR 2/6 systolic murmur. parasternal tenderness to palpation as at previous exam ABDOMEN: Bowel sounds positive, soft, nontender. ostomy present; no machuca EXTREMITIES: no edema NEUROLOGIC: lion, fluent speech DERMATOLOGIC: No rash or ulcers noted. Current Inpatient Medications Medications (Trade) Dose Ordered Sig/All Route Start Time Stop Time Status Last Admin Dose Admin Acetaminophen (Tylenol Tab) 650 mg Q4H PRN PO 11/01/16 06:00 12/01/16 05:59 Oxycodone/ Acetaminophen (Percocet 10-325MG Tab) 1 tab TID PO 11/01/16 14:00 11/15/16 13:59 11/05/16 20:52 1 TAB Glucose (Glucose 40% Gel) 15-30 GRAMS 15 GRAMS... UD PRN PO 11/01/16 09:15 12/01/16 09:14 Glucose (Glucose Chew Tab) 4-8 Tablets 4 Tabl... UD PRN PO 11/01/16 09:15 12/01/16 09:14 Dextrose (Dextrose 50% 50ML Syringe) 25-50ML OF 50% DW IV FOR... UD PRN IV 11/01/16 09:15 12/01/16 09:14 Glucagon (Glucagon Inj) 1 mg UD PRN SQ 11/01/16 09:15 12/01/16 09:14 Albuterol (Ventolin Hfa Inhaler) 2 puffs QID INH 11/01/16 12:00 12/01/16 11:59 11/05/16 20:50 2 PUFFS Amlodipine Besylate (Norvasc Tab) 10 mg DAILY PO 11/02/16 08:00 12/01/16 07:59 11/05/16 08:06 10 MG Atorvastatin Calcium (Lipitor Tab) 20 mg DAILY PO 11/02/16 08:00 12/01/16 07:59 11/05/16 08:13 20 MG Fenofibrate (Tricor Tab) 145 mg DAILY PO 11/02/16 08:00 12/01/16 07:59 11/05/16 08:05 145 MG Salmeterol Xinafoate/ Fluticasone (Advair Diskus 250/50 Inh) 1 puff BID INH 11/01/16 20:00 12/01/16 19:59 11/05/16 20:50 1 PUFF Loratadine (Claritin Tab) 10 mg DAILY PO 11/02/16 08:00 12/01/16 07:59 11/02/16 08:15 10 MG Pregabalin (Lyrica Cap) 300 mg BID PO 11/01/16 20:00 12/01/16 19:59 11/05/16 20:51 300 MG Allopurinol (Zyloprim Tab) 100 mg DAILY PO 11/02/16 08:00 12/02/16 07:59 11/05/16 08:05 100 MG Nitroglycerin (Nitrostat Tab) 0.4 mg PRN PRN SL 11/01/16 13:15 12/01/16 13:14 Clonidine HCl (Catapres Tab) 0.1 mg Q4H PRN PO 11/01/16 13:15 12/01/16 13:14 11/02/16 23:37 0.1 MG Doxycycline Hyclate (Vibramycin Cap) 100 mg BID PO 11/01/16 20:00 11/11/16 19:59 11/05/16 20:51 100 MG Insulin Aspart (novoLOG ASPART) SLIDING SCALE G... ACHS SC 11/01/16 22:00 12/01/16 21:59 11/05/16 16:15 5 UNITS Miscellaneous Information (Consult Glycemic Management Pharmacy) 1 ea UD N/A 11/02/16 09:41 12/02/16 09:40 Oxymetazoline HCl (Afrin 0.05% Nasal [place]) 2 sprays Q12 NA 11/03/16 09:00 12/03/16 08:59 11/05/16 20:52 2 SPRAYS Metoprolol Succinate (Toprol Xl Tab) 50 mg BID PO 11/03/16 21:00 12/03/16 20:59 11/05/16 20:51 50 MG Insulin Glargine (Lantus Solostar Pen) 15 units for BSG 120... BID SC 11/03/16 21:00 12/03/16 20:59 11/05/16 20:51 15 UNIT Sodium Chloride ([place] Nasal [place]) 1 sprays Q1HWA NA 11/03/16 15:00 12/03/16 14:59 11/06/16 07:08 1 SPRAYS Hydralazine HCl (Apresoline Tab) 10 mg TID PO 11/04/16 21:00 12/04/16 20:59 11/05/16 20:51 10 MG Diazepam (Valium Tab) 10 mg TID@1000,1600,2200 PO 11/05/16 16:30 12/05/16 16:29 Future hold 11/05/16 20:52 10 MG Last 24 Hours Test 11/05/16 11:18 11/05/16 16:04 11/05/16 20:04 11/06/16 06:00 Bedside Glucose 267 mg/dl 131 mg/dl 150 mg/dl White Blood Count 6.92 K/uL Red Blood Count 4.54 M/uL Hemoglobin 14.6 g/dL Hematocrit 42.0 % Mean Corpuscular Volume 92.5 fL Mean Corpuscular Hemoglobin 32.2 pg Mean Corpuscular Hemoglobin Concent 34.8 g/dl RDW Standard Deviation 47.5 fL RDW Coefficient of Variation 14.1 % Platelet Count 243 K/uL Mean Platelet Volume 11.1 fL Sodium Level 139 mmol/L Potassium Level 4.5 mmol/L Chloride Level 108 mmol/L Carbon Dioxide Level 21 mmol/L Anion Gap 10.0 mmol/L Blood Urea Nitrogen 60 mg/dl Creatinine 2.70 mg/dl Est Creatinine Clear Calc Drug Dose 34.0 ml/min Estimated GFR () 27.6 Estimated GFR (Non- 23.8 BUN/Creatinine Ratio 22.2 Random Glucose 170 mg/dl Calcium Level 8.7 mg/dl Test 11/06/16 08:05 Bedside Glucose 173 mg/dl Assessment & Plan 66 y/o M w/ CKD, recurrent epistaxis, longstanding DM, at times uncontrolled HTN , CAD s/p CABG/pacer, heavy EtOH use, partial colectomy after C diff recently hospitalized in [place] for chest pain, GUZMAN, and epistaxis and w/ worsening renal function in setting of marked HTN, acute on chronic HF: discharged 10/25. No mention of receiving IV contrast that admission. His baseline creatinine had been 1.5-1.7 as of 04/2016; it was 2.2 on 10/17; 1.8 on 10/21; 3.1 on 10/22; 2.4 on 10/25 at [place] d/c. On admission here again after presenting with chest pain and recurrent epistaxis, creatinine was 3.7 on 10/31. Nonoliguric acute kidney injury on at least advanced stage 3 chronic kidney disease with baseline creatinine of 1.5-1.7 summer 2015 and baseline probably more like 2.0 10/2016 prior to [place] admission and then recent TYREL with creatinine up to 3.14 during the previous hospitalization in [place] -no renal artery stenosis; bland urine sediment except glucosuria (can suggest tubular dysfunction as well as uncontrolled blood sugar); uric acid and CK are wnl -plateau'd despite conservative measures; suspect ATN related to a medication/ prior TYREL but cannot prove this -cont daily bmp, avoidance of meds that can worsen renal function in this phase of TYREL recovery; not anemic and chemistries acceptable -will check bladder scan and weigh standing daily and I/O; remedios UA >>again stressed w/ pt he absolutely needs to est care w/ Dr. Washington in [place] CKD clinic or other nephro provider after hospital d/c as he has significant and worsening CKD HTN acceptable control currently Gout. current allopurinol dose acceptable Appreciate consult; will follow with you. Care coordinated w/ Dr. Gerber
[2016-11-06] MEDS: OXYCODONE/ACETAMINOPHEN 10/325MG TAB PO SCH ×3 (09:46→21:38)
[2016-11-06] MEDS: PREGABALIN 150 MG CAP PO SCH ×2 (09:46→21:38)
[2016-11-06] MEDS: INSULIN ASPART 100 UNITS/ML 3 ML PEN SC SCH ×4 (09:51→21:40)
[2016-11-06] MEDS: INSULIN GLARGINE SOLOSTAR 100 UNITS/ML 3 ML PEN SC SCH ×2 (09:52→21:43)
[2016-11-06] MEDS: DIAZEPAM 5MG TAB PO SCH ×2 (11:25→16:18)
--- NOTE | 2016-11-06 11:27 | Pharmacy Progress Note ---
Glycemic Control: Progress Nt Date of Service Nov 06, 2016. Scope Glycemic Pharmacist consulted by Dr Moyer on 11/02/16 for glycemic control and to write orders per [facility] inpatient glycemic control protocol. Objective Accuchecks BSG (last 24hrs): Test 11/05/16 16:04 11/05/16 20:04 11/06/16 06:00 11/06/16 08:05 Bedside Glucose 131 mg/dl (70-99) 150 mg/dl (70-99) 173 mg/dl (70-99) Random Glucose 170 mg/dl (70-99) Laboratory Data (last 24hrs) Test 11/06/16 06:00 Anion Gap 10.0 mmol/L BUN/Creatinine Ratio 22.2 Blood Urea Nitrogen 60 mg/dl Creatinine 2.70 mg/dl Potassium Level 4.5 mmol/L Sodium Level 139 mmol/L White Blood Count 6.92 K/uL HbA1c: Test 11/02/16 07:10 Hemoglobin A1c 7.8 % (4.5-5.6) H Recent Pertinent Medications Outpatient Anti-diabetic Regimen: * Glipizide 20mg PO daily * Metformin 1g PO BID * A1c = 7.8 % 11/02/16 The patient is currently receiving: * Basal insulin: Lantus 15 units every 12 hours Give 10 units if BSG <120 mg/dL * Correctional Insulin: Novolog Correction per scale ACHS Goal Range: Low 120 mg/dL - High 160 mg/dL Correction Factor: 20 mg/dL/unit * Prandial insulin: Per carb ratio of 1 unit per 7 grams CHO consumed * Oral Agents: On Hold Risk Factors for Insulin Resistance: * Infection * Diet Assessment & Plan ASSESSMENT: 11/04/16 * 66 yo T2D M admitted with ARF and epistaxis on 11/01/16 * BSGs on admission >300 mg/dL--> basal/bolus regimen initiated and titrated since that time * Current regimen consistent with weight-based approach * Fasting BSG 158 mg/dL this AM- BSGs finally trending down * Of note, patient received large bolus of Novolog (19 units) with dinner last night incorrectly- nurse used BSG as grams of CHO consumed so I am unsure what the patient ate and what they should have gotten- no changes will be made based on this error * Continue current regimen * ADA & AACE recommend a goal blood sugar range 140-180 mg/dl for the majority of critically ill & non-critically ill patients. However, more stringent targets may be selected in individual cases. Patient has been on goal range of 120-160mg/dL- continue for now. 11/06/16 * BSGs stable over the past 48 hours * Yesterday I tightened Novolog slightly which seemed to keep prandial BSGs better controlled * Fasting BSG this AM increased to 176 mg/dL and lunch nearly 300 mg/dL * Increase Lantus 20% starting tonight * Tighten Novolog further (once extra Lantus on board we may need to loosen) PLAN FOR INPATIENT GLYCEMIC CONTROL: * Hold outpatient oral diabetes medications * Increase Basal insulin to LANTUS 18 units SQ BID * 9 units for BSG < 110 * Tighten Correctional Insulin with NOVOLOG per scale ACHS or Q6hrs while NPO * Goal Range: Low 120 mg/dL - High 160 mg/dL * Correction Factor: 18 mg/dL/unit * Nutritional / Prandial insulin per carb ratio of 1 unit per 6 grams CHO consumed * Please note that the plan above was derived based on current level of insulin resistance and hospital stress. These recommendations are appropriate for inpatient admission only. Plan of care upon discharge will need to be reassessed to avoid potential outpatient hypo/hyperglycemia. Thank you.
[2016-11-06 12:28] LABS: URINE APPEARANCE CLEAR (CLEAR); URINE BILIRUBIN NEG (NEG); URINE COLOR YELLOW; URINE EPITHELIAL CELL AUTO 0-5 /lpf (0-5); URINE NITRITE NEG (NEG); URINE SPECIFIC GRAVITY 1.012 (1.000-1.030); UROBILINOGEN NEG (NEG); ZZUR CULT IF INDIC CLEAN CATCH NO
[2016-11-06 12:30] LABS: MANUAL MICROSCOPIC REQUIRED? NO; REVIEW REQ? NO
[2016-11-06 13:02] LABS: HEMATOCRIT 38.7 % (42-52)
--- NOTE | 2016-11-06 13:42 | Progress Note ---
Medicine Progress Note Date & Time of Visit: Nov 06, 2016 at 13:20. Subjective Pt was seen and examined Pt had an episodes of nose bleeding today pressure was applied by nurse By the time i came to evaluate him, the nose bleeding stopped I called Dr. Bentley that said no need to pack it if the bleeding stop. but he recommends if it bleeds again to do nose packing and transfer to [facility]. After the nose bleeding episode, pt was very anxious and he was feeling dizzy and pale 1/2 hours later, he started to feel better he denies any chest pain, palpitation, SOB Objective Last 8 Hrs Date Time Temp Pulse Resp B/P Pulse Ox O2 Delivery O2 Flow Rate FiO2 11/06/16 12:53 62 129/72 95 Room Air 11/06/16 12:12 45 154/75 42 11/06/16 09:35 79 158/98 11/06/16 08:34 97 Room Air 11/06/16 07:53 36.6 57 19 127/69 97 Room Air 11/06/16 07:50 Room Air Physical Exam: General- No respiratory distress Head- atraumatic Eyes- PERRL, EOMI ENT- trace of blood in the nostril Neck- supple, no JVD Lungs- clear to auscultation and percussion Heart- regular rhythm; no murmur Abdomen- normal bowel sounds, soft Extremities-no calf tenderness Neuro- alert, oriented x 3; PERRL Skin- warm & dry Laboratory Results: Last 24 Hours Test 11/05/16 16:04 11/05/16 20:04 11/06/16 06:00 11/06/16 08:05 Bedside Glucose 131 mg/dl 150 mg/dl 173 mg/dl White Blood Count 6.92 K/uL Red Blood Count 4.54 M/uL Hemoglobin 14.6 g/dL Hematocrit 42.0 % Mean Corpuscular Volume 92.5 fL Mean Corpuscular Hemoglobin 32.2 pg Mean Corpuscular Hemoglobin Concent 34.8 g/dl RDW Standard Deviation 47.5 fL RDW Coefficient of Variation 14.1 % Platelet Count 243 K/uL Mean Platelet Volume 11.1 fL Sodium Level 139 mmol/L Potassium Level 4.5 mmol/L Chloride Level 108 mmol/L Carbon Dioxide Level 21 mmol/L Anion Gap 10.0 mmol/L Blood Urea Nitrogen 60 mg/dl Creatinine 2.70 mg/dl Est Creatinine Clear Calc Drug Dose 34.0 ml/min Estimated GFR () 27.6 Estimated GFR (Non- 23.8 BUN/Creatinine Ratio 22.2 Random Glucose 170 mg/dl Calcium Level 8.7 mg/dl Test 11/06/16 12:00 11/06/16 12:04 11/06/16 12:45 Urine Color YELLOW Urine Appearance CLEAR Urine pH 5.0 Urine Specific [place] 1.012 Urine Protein NEG Urine Glucose (UA) 1+ Urine Ketones NEG Urine Occult Blood NEG Urine Nitrite NEG Urine Bilirubin NEG Urine Urobilinogen NEG Urine Leukocyte Esterase NEG Urine WBC (Auto) 1-5 /hpf Urine RBC (Auto) 0-4 /hpf Urine Hyaline Casts (Auto) 0 /lpf Urine Epithelial Cells (Auto) 0-5 /lpf Urine Bacteria (Auto) NEG Bedside Glucose 298 mg/dl Hemoglobin 13.3 g/dL Hematocrit 38.7 % Assessment & Plan ACUTE KIDNEY INJURY CKD III with baseline creatinine around 1.5. Creatinine on admission was 3.43, then trending to 2.9-->2.6-->2.7 -->2.5 --> 2.5 --> 2.7 today TYREL may be due to volume depletion from combination of ileostomy output + diuretic therapy. FeNa was >2%,poss 'ATN from recent hospitalization Cont holding diuretic. Will do strict I/O Nephrology on board EPISTAXIS 2 recent episodes of severe epistaxis prior to transfer to [facility] Right nostril cauterized / packed in [place] ED. Pulled on 11/03 and uneventful for past 24 hours Cont nasal saline and Afrin as instructed Hold aspirin-restart when OK with ENT (Dr. Victor Manuel Teixeira) Doxy to cover staph/strep species while nasal packing is in place and while we are hospitalized 11/06 One episode of epistaxis today Bleeding stopped after pressure applied Case discussed with Dr. Bentley that advised no need to pack it if bleeding stopped Dr. Bentley recommended If patient rebleeds, to pack the nose and transfer to [facility] to perform embolization. H/H stable SHORTNESS OF BREATH: -Possible related to diastolic heart failure -recent treatment with Demedex caused ARF, so diuretics are on hold at this point -As Nephro agreed to continue holding diuretics at this time -CXR in am showed moderate stable cardiomegaly. No current evidence for congestive failure Stable ETOH USE [place] use of benzo as needed Increase diazepam to his previous dose 10mg TID CORONARY ARTERY DISEASE atypical chest pain prior to admission s/p CABG in 2014 Holding aspirin due to epistaxis Continue metoprolol and amlodipine. Repeat EKG reveals paced rhythm with abnormalities PM interrogation 11/03 and demonstrates normal function with 4.5 years battery life remaining. PAF noted > 1 year ago. No recurrence. No anticoagulation indicated per Cards evaluation, however, needs to continue with q3 month PM checks Troponin is negative, however, with h/o atypical chest pain and history patient will need an outpatient stress test. Will advise him at discharge Asymptomatic BRADYCARDIA Stat EKG showed no significant changes Resolved Continue monitor HYPERTENSION h/o FREIDA h/o stenting per [facility] records Continue metoprolol and amlodipine. Continue Toprol CL 50mg BID Will add Hydralazine 10 TID now Stable COPD Continue bronchodilators. DM TYPE 2 Hold oral agents due to acute illness / TYREL. Hgb A1C-7.8 (10/23/16) Continue insulin sliding scale Lantus / NovoLog per protocol. GOUT Continue allopurinol. CHRONIC PAIN Continue usual meds. DEPRESSION/ANXIETY Pt refused psych consult VTE PROPHYLAXIS No anticoagulants due to epistaxis. SCD's. Ambulate. RESUSCITATION STATUS Full code. DISPOSITION Expected discharge to home once renal function improves to baseline 1.5. Medical follow-up with PCP, Dr. Stephenson. Consultants: ENT, Cards, Nephro Current Inpatient Medications: Current Inpatient Medications Medications (Trade) Dose Ordered Sig/All Route Start Time Stop Time Status Last Admin Dose Admin Acetaminophen (Tylenol Tab) 650 mg Q4H PRN PO 11/01/16 06:00 12/01/16 05:59 Oxycodone/ Acetaminophen (Percocet 10-325MG Tab) 1 tab TID PO 11/01/16 14:00 11/15/16 13:59 11/06/16 09:46 1 TAB Glucose (Glucose 40% Gel) 15-30 GRAMS 15 GRAMS... UD PRN PO 11/01/16 09:15 12/01/16 09:14 Glucose (Glucose Chew Tab) 4-8 Tablets 4 Tabl... UD PRN PO 11/01/16 09:15 12/01/16 09:14 Dextrose (Dextrose 50% 50ML Syringe) 25-50ML OF 50% DW IV FOR... UD PRN IV 11/01/16 09:15 12/01/16 09:14 Glucagon (Glucagon Inj) 1 mg UD PRN SQ 11/01/16 09:15 12/01/16 09:14 Albuterol (Ventolin Hfa Inhaler) 2 puffs QID INH 11/01/16 12:00 12/01/16 11:59 11/06/16 09:32 2 PUFFS Amlodipine Besylate (Norvasc Tab) 10 mg DAILY PO 11/02/16 08:00 12/01/16 07:59 11/06/16 09:37 10 MG Atorvastatin Calcium (Lipitor Tab) 20 mg DAILY PO 11/02/16 08:00 12/01/16 07:59 11/06/16 09:37 20 MG Fenofibrate (Tricor Tab) 145 mg DAILY PO 11/02/16 08:00 12/01/16 07:59 11/06/16 09:37 145 MG Salmeterol Xinafoate/ Fluticasone (Advair Diskus 250/50 Inh) 1 puff BID INH 11/01/16 20:00 12/01/16 19:59 11/06/16 09:32 1 PUFF Loratadine (Claritin Tab) 10 mg DAILY PO 11/02/16 08:00 12/01/16 07:59 11/02/16 08:15 10 MG Pregabalin (Lyrica Cap) 300 mg BID PO 11/01/16 20:00 12/01/16 19:59 11/06/16 09:46 300 MG Allopurinol (Zyloprim Tab) 100 mg DAILY PO 11/02/16 08:00 12/02/16 07:59 11/06/16 09:35 100 MG Nitroglycerin (Nitrostat Tab) 0.4 mg PRN PRN SL 11/01/16 13:15 12/01/16 13:14 Clonidine HCl (Catapres Tab) 0.1 mg Q4H PRN PO 11/01/16 13:15 12/01/16 13:14 11/02/16 23:37 0.1 MG Doxycycline Hyclate (Vibramycin Cap) 100 mg BID PO 11/01/16 20:00 11/11/16 19:59 11/06/16 09:37 100 MG Insulin Aspart (novoLOG ASPART) SLIDING SCALE G... ACHS SC 11/01/16 22:00 12/01/16 21:59 11/06/16 09:51 8 UNITS Miscellaneous Information (Consult Glycemic Management Pharmacy) 1 ea UD N/A 11/02/16 09:41 12/02/16 09:40 Oxymetazoline HCl (Afrin 0.05% Nasal [place]) 2 sprays Q12 NA 11/03/16 09:00 12/03/16 08:59 11/06/16 09:33 2 SPRAYS Metoprolol Succinate (Toprol Xl Tab) 50 mg BID PO 11/03/16 21:00 12/03/16 20:59 11/06/16 09:37 50 MG Sodium Chloride ([place] Nasal [place]) 1 sprays Q1HWA NA 11/03/16 15:00 12/03/16 14:59 11/06/16 11:25 1 SPRAYS Hydralazine HCl (Apresoline Tab) 10 mg TID PO 11/04/16 21:00 12/04/16 20:59 11/06/16 09:36 10 MG Diazepam (Valium Tab) 10 mg TID@1000,1600,2200 PO 11/05/16 16:30 12/05/16 16:29 Future hold 11/06/16 11:25 10 MG Insulin Glargine (Lantus Solostar Pen) 18 unit BID SC 11/06/16 21:00 12/03/16 20:59
[2016-11-07] VITALS (9 sets, daily range): BP systolic 113–163; BP diastolic 60–83; PULSE 30–76; TEMP 36.4–36.8; O2SAT 96–99
[2016-11-07] MEDS: DIAZEPAM 5MG TAB PO SCH ×4 (00:42→22:48)
[2016-11-07] MEDS: SODIUM CHLORIDE 0.65% NA SOLN 45 ML (OCEAN) SCH ×7 (06:07→12:00)
[2016-11-07] MEDS: OXYCODONE/ACETAMINOPHEN 10/325MG TAB PO SCH ×3 (06:09→21:43)
[2016-11-07 06:35] LABS: HEMATOCRIT 38.8 % (42-52); MEAN CELL VOLUME 91.3 fL (80-100); MEAN CORPUSCULAR HEMOGLOBIN 30.4 pg (25-34); MEAN CORPUSCULAR HGB CONC 33.2 g/dl (32-36); MEAN PLATELET VOLUME 10.8 fL (7.4-10.4); PLATELET COUNT 214 K/uL (130-400); RED BLOOD COUNT 4.25 M/uL (4.7-6.1); WHITE BLOOD COUNT 6.64 K/uL (4.8-10.8)
[2016-11-07 07:01] LABS: BUN/CREATININE RATIO 22.8 (10-20); CALCIUM 8.4 mg/dl (8.5-10.1); CREATININE 3.1 mg/dl (0.60-1.40); POTASSIUM 4.6 mmol/L (3.5-5.1)
[2016-11-07] MEDS ORDERED: SODIUM CHLORIDE 0.9% 1000ML 1,000 ML IV SCH (07:45)
[2016-11-07] MEDS: LORATADINE 10 MG TAB PO SCH (09:00)
[2016-11-07] MEDS: METOPROLOL SUCC 50MG EXT REL TAB PO SCH ×2 (09:00→21:00)
[2016-11-07] MEDS: DOXYCYCLINE HYCLATE 100 MG CAP PO SCH ×2 (09:25→21:43)
[2016-11-07] MEDS: AMLODIPINE BESYLATE 5 MG TAB PO SCH (09:25)
[2016-11-07] MEDS: ALLOPURINOL 100 MG TAB PO SCH (09:25)
[2016-11-07] MEDS: FENOFIBRATE 145 MG TAB PO SCH (09:26)
[2016-11-07] MEDS: ALBUTEROL HFA 8 GM INHALER INH SCH ×4 (09:26→21:43)
[2016-11-07] MEDS: FLUTICASONE/SALMETEROL 250/50 (ADVAIR) 14 PUFF/1 INHALER INH SCH ×2 (09:26→21:43)
[2016-11-07] MEDS: ATORVASTATIN 20 MG TAB PO SCH (09:26)
[2016-11-07] MEDS: OXYMETAZOLINE HCL 0.05% NA SPR 15 ML BTL SCH (09:26)
[2016-11-07] MEDS: HydrALAZINE 10 MG TAB PO SCH ×3 (09:27→21:43)
[2016-11-07] MEDS: PREGABALIN 150 MG CAP PO SCH ×2 (09:32→21:43)
[2016-11-07] MEDS: INSULIN ASPART 100 UNITS/ML 3 ML PEN SC SCH ×4 (09:51→21:42)
[2016-11-07] MEDS: INSULIN GLARGINE SOLOSTAR 100 UNITS/ML 3 ML PEN SC SCH ×2 (09:52→21:42)
--- NOTE | 2016-11-07 10:02 | Nephrology Progress Note ---
Nephrology Progress Note Date of Service: Nov 07, 2016. Subjective pt up to [facility] yesterday to give urine specimen and had another large nosebleed; HR in this time frame was in 30-low40s and he was lethargic/ confused / diaphoretic. bp reportedly did not drop. code was nearly called but pt sx/ HR improved. creatinine worse today. not dyspneic. frustrated about clinical status Objective Date Time Temp Pulse Resp B/P Pulse Ox O2 Delivery O2 Flow Rate FiO2 11/07/16 09:00 38 157/70 11/07/16 08:00 76 16 124/67 97 Room Air 11/07/16 08:00 97 Room Air 11/07/16 00:40 36.7 68 18 163/75 96 Room Air 11/07/16 00:35 Room Air 11/06/16 21:34 64 108/62 11/06/16 15:40 36.7 64 20 118/74 96 Room Air 11/06/16 15:15 96 Room Air 11/06/16 13:41 36.6 62 18 126/72 97 Room Air 11/06/16 12:53 62 129/72 95 Room Air 11/06/16 12:12 45 154/75 42 Physical Exam: GENERAL: Awake, alert, oriented x3. nad; on RA EYES: No scleral icterus. ENT: Moist mucous membranes. NECK: Supple. PULMONARY: diminished air entry but clear CARDIAC: RRR (sic). parasternal tenderness to palpation as at previous exam ABDOMEN: Bowel sounds positive, soft, nontender. ostomy present; no machuca EXTREMITIES: no edema NEUROLOGIC: lion, fluent speech DERMATOLOGIC: No rash or ulcers noted. Current Inpatient Medications Medications (Trade) Dose Ordered Sig/All Route Start Time Stop Time Status Last Admin Dose Admin Acetaminophen (Tylenol Tab) 650 mg Q4H PRN PO 11/01/16 06:00 12/01/16 05:59 Glucose (Glucose 40% Gel) 15-30 GRAMS 15 GRAMS... UD PRN PO 11/01/16 09:15 12/01/16 09:14 Glucose (Glucose Chew Tab) 4-8 Tablets 4 Tabl... UD PRN PO 11/01/16 09:15 12/01/16 09:14 Dextrose (Dextrose 50% 50ML Syringe) 25-50ML OF 50% DW IV FOR... UD PRN IV 11/01/16 09:15 12/01/16 09:14 Glucagon (Glucagon Inj) 1 mg UD PRN SQ 11/01/16 09:15 12/01/16 09:14 Albuterol (Ventolin Hfa Inhaler) 2 puffs QID INH 11/01/16 12:00 12/01/16 11:59 11/07/16 09:26 2 PUFFS Amlodipine Besylate (Norvasc Tab) 10 mg DAILY PO 11/02/16 08:00 12/01/16 07:59 11/07/16 09:25 10 MG Atorvastatin Calcium (Lipitor Tab) 20 mg DAILY PO 11/02/16 08:00 12/01/16 07:59 11/07/16 09:26 20 MG Fenofibrate (Tricor Tab) 145 mg DAILY PO 11/02/16 08:00 12/01/16 07:59 11/07/16 09:26 145 MG Salmeterol Xinafoate/ Fluticasone (Advair Diskus 250/50 Inh) 1 puff BID INH 11/01/16 20:00 12/01/16 19:59 11/07/16 09:26 1 PUFF Loratadine (Claritin Tab) 10 mg DAILY PO 11/02/16 08:00 12/01/16 07:59 11/02/16 08:15 10 MG Pregabalin (Lyrica Cap) 300 mg BID PO 11/01/16 20:00 12/01/16 19:59 11/07/16 09:32 300 MG Allopurinol (Zyloprim Tab) 100 mg DAILY PO 11/02/16 08:00 12/02/16 07:59 11/07/16 09:25 100 MG Nitroglycerin (Nitrostat Tab) 0.4 mg PRN PRN SL 11/01/16 13:15 12/01/16 13:14 Clonidine HCl (Catapres Tab) 0.1 mg Q4H PRN PO 11/01/16 13:15 12/01/16 13:14 11/02/16 23:37 0.1 MG Doxycycline Hyclate (Vibramycin Cap) 100 mg BID PO 11/01/16 20:00 11/11/16 19:59 11/07/16 09:25 100 MG Insulin Aspart (novoLOG ASPART) SLIDING SCALE G... ACHS SC 11/01/16 22:00 12/01/16 21:59 11/07/16 09:51 17 UNITS Miscellaneous Information (Consult Glycemic Management Pharmacy) 1 ea UD N/A 11/02/16 09:41 12/02/16 09:40 Oxymetazoline HCl (Afrin 0.05% Nasal [place]) 2 sprays Q12 NA 11/03/16 09:00 12/03/16 08:59 11/07/16 09:26 2 SPRAYS Metoprolol Succinate (Toprol Xl Tab) 50 mg BID PO 11/03/16 21:00 12/03/16 20:59 11/06/16 21:38 50 MG Sodium Chloride ([place] Nasal [place]) 1 sprays Q1HWA NA 11/03/16 15:00 12/03/16 14:59 11/07/16 09:27 1 SPRAYS Hydralazine HCl (Apresoline Tab) 10 mg TID PO 11/04/16 21:00 12/04/16 20:59 11/07/16 09:27 10 MG Insulin Glargine (Lantus Solostar Pen) 18 unit BID SC 11/06/16 21:00 12/03/16 20:59 11/07/16 09:52 18 UNIT Oxycodone/ Acetaminophen (Percocet 10-325MG Tab) 1 tab Q8H PO 11/07/16 06:00 11/21/16 05:59 11/07/16 06:09 1 TAB Diazepam 10 mg 10 mg Q8H PO 11/07/16 00:00 12/07/16 00:00 11/07/16 07:57 10 MG Sodium Chloride (Nss 1000ml) 1,000 ml @ 75 mls/hr [id number] IV 11/07/16 07:45 12/07/16 07:44 11/07/16 08:00 75 MLS/HR Last 24 Hours Test 11/06/16 12:00 11/06/16 12:04 11/06/16 12:45 11/06/16 16:48 Urine Color YELLOW Urine Appearance CLEAR Urine pH 5.0 Urine Specific [place] 1.012 Urine Protein NEG Urine Glucose (UA) 1+ Urine Ketones NEG Urine Occult Blood NEG Urine Nitrite NEG Urine Bilirubin NEG Urine Urobilinogen NEG Urine Leukocyte Esterase NEG Urine WBC (Auto) 1-5 /hpf Urine RBC (Auto) 0-4 /hpf Urine Hyaline Casts (Auto) 0 /lpf Urine Epithelial Cells (Auto) 0-5 /lpf Urine Bacteria (Auto) NEG Bedside Glucose 298 mg/dl 163 mg/dl Hemoglobin 13.3 g/dL Hematocrit 38.7 % Test 11/06/16 20:47 11/07/16 06:01 11/07/16 08:39 Bedside Glucose 141 mg/dl 198 mg/dl White Blood Count 6.64 K/uL Red Blood Count 4.25 M/uL Hemoglobin 12.9 g/dL Hematocrit 38.8 % Mean Corpuscular Volume 91.3 fL Mean Corpuscular Hemoglobin 30.4 pg Mean Corpuscular Hemoglobin Concent 33.2 g/dl RDW Standard Deviation 46.2 fL RDW Coefficient of Variation 13.9 % Platelet Count 214 K/uL Mean Platelet Volume 10.8 fL Sodium Level 138 mmol/L Potassium Level 4.6 mmol/L Chloride Level 107 mmol/L Carbon Dioxide Level 20 mmol/L Anion Gap 11.0 mmol/L Blood Urea Nitrogen 71 mg/dl Creatinine 3.10 mg/dl Est Creatinine Clear Calc Drug Dose 29.4 ml/min Estimated GFR () 23.4 Estimated GFR (Non- 20.2 BUN/Creatinine Ratio 22.8 Random Glucose 234 mg/dl Calcium Level 8.4 mg/dl Assessment & Plan 66 y/o M w/ CKD, recurrent epistaxis, longstanding DM, at times uncontrolled HTN , CAD s/p CABG/pacer, heavy EtOH use, partial colectomy after C diff recently hospitalized in [place] for chest pain, GUZMAN, and epistaxis and w/ worsening renal function in setting of marked HTN, acute on chronic HF: discharged 10/25. No mention of receiving IV contrast that admission. His baseline creatinine had been 1.5-1.7 as of 04/2016; it was 2.2 on 10/17; 1.8 on 10/21; 3.1 on 10/22; 2.4 on 10/25 at [place] d/c. On admission here again after presenting with chest pain and recurrent epistaxis, creatinine was 3.7 on 10/31. Nonoliguric ATN / acute kidney injury on at least advanced stage 3 chronic kidney disease with baseline creatinine of 1.5-1.7 summer 2015 and baseline probably more like 2.0 10/2016 prior to [place] admission and then recent TYREL with creatinine up to 3.14 during the previous hospitalization in [place] creatinine had improved then up to 3.1 today after events yesterday w/ transient bradycardia; urine sediment remains bland except for glucosuria>> will d/w hospitalist about querying cardiology as these HR drops are affecting renal function in my opinion -no renal artery stenosis; bland urine sediment except glucosuria (can suggest tubular dysfunction as well as uncontrolled blood sugar); uric acid and CK are wnl ->>>suspect ATN related to HR and perfusion variability -cont daily bmp, avoidance of meds that can worsen renal function in this phase of TYREL recovery; not anemic and chemistries acceptable -cont to weigh standing daily and I/O >>again stressed w/ pt he absolutely needs to est care w/ Dr. Washington in [place] CKD clinic or other nephro provider after hospital d/c as he has significant and worsening CKD HTN acceptable control currently Gout. current allopurinol dose acceptable Appreciate consult; will follow with you. Care coordinated w/ Dr. Gerber
[2016-11-07] MEDS ORDERED: NURSING VERBAL MED ORDER ONE ×3 (11:45→22:45)
[2016-11-07] MEDS ORDERED: DIAZEPAM 5MG TAB PO ONE (11:45)
--- NOTE | 2016-11-07 11:54 | Ears,Nose,Throat Progress Note ---
Progress Note Date of Service Nov 07, 2016. Subjective Pt evaluation today including: conversation w/ patient, physical exam, chart review Patient seen by my partner Dr. Gupta in consultation for epistaxis after he was packed at [facility]. Packing was removed by Dr. Gupta on Friday. Patient had done well until yesterday when had a short lived bout of epistaxis, then another this am. No current bleeding. Objective Vital Signs Date Time Temp Pulse Resp B/P Pulse Ox O2 Delivery O2 Flow Rate FiO2 11/07/16 10:21 31 152/66 98 Room Air 31 11/07/16 10:03 36.5 11/07/16 09:00 38 157/70 11/07/16 08:00 76 16 124/67 97 Room Air 11/07/16 08:00 97 Room Air 11/07/16 07:55 Room Air 11/07/16 00:40 36.7 68 18 163/75 96 Room Air 11/07/16 00:35 Room Air 11/06/16 21:34 64 108/62 11/06/16 15:40 36.7 64 20 118/74 96 Room Air 11/06/16 15:15 96 Room Air 11/06/16 13:41 36.6 62 18 126/72 97 Room Air 11/06/16 12:53 62 129/72 95 Room Air 11/06/16 12:12 45 154/75 42 Physical Exam General Appearance: WD/WN, no apparent distress Eyes: PERRL, EOMI ENT: + pertinent finding (Right nare cleaned of old blood with suction. No active bleeding noted. No septal vessels noted.) Notes: PROCEDURE Attention directed to the right nare. After old crusting and blood removed with suction, surgicel was applied superiorly in the nasal cavity followed by application of floseal into the right nare. Patient tolerated well. Laboratory Results Last 24 Hours Test 11/06/16 12:00 11/06/16 12:04 11/06/16 12:45 11/06/16 16:48 Urine Color YELLOW Urine Appearance CLEAR Urine pH 5.0 Urine Specific [place] 1.012 Urine Protein NEG Urine Glucose (UA) 1+ Urine Ketones NEG Urine Occult Blood NEG Urine Nitrite NEG Urine Bilirubin NEG Urine Urobilinogen NEG Urine Leukocyte Esterase NEG Urine WBC (Auto) 1-5 /hpf Urine RBC (Auto) 0-4 /hpf Urine Hyaline Casts (Auto) 0 /lpf Urine Epithelial Cells (Auto) 0-5 /lpf Urine Bacteria (Auto) NEG Bedside Glucose 298 mg/dl 163 mg/dl Hemoglobin 13.3 g/dL Hematocrit 38.7 % Test 11/06/16 20:47 11/07/16 06:01 11/07/16 08:39 Bedside Glucose 141 mg/dl 198 mg/dl White Blood Count 6.64 K/uL Red Blood Count 4.25 M/uL Hemoglobin 12.9 g/dL Hematocrit 38.8 % Mean Corpuscular Volume 91.3 fL Mean Corpuscular Hemoglobin 30.4 pg Mean Corpuscular Hemoglobin Concent 33.2 g/dl RDW Standard Deviation 46.2 fL RDW Coefficient of Variation 13.9 % Platelet Count 214 K/uL Mean Platelet Volume 10.8 fL Sodium Level 138 mmol/L Potassium Level 4.6 mmol/L Chloride Level 107 mmol/L Carbon Dioxide Level 20 mmol/L Anion Gap 11.0 mmol/L Blood Urea Nitrogen 71 mg/dl Creatinine 3.10 mg/dl Est Creatinine Clear Calc Drug Dose 29.4 ml/min Estimated GFR () 23.4 Estimated GFR (Non- 20.2 BUN/Creatinine Ratio 22.8 Random Glucose 234 mg/dl Calcium Level 8.4 mg/dl Assessment and Plan 66 yo male with acute renal failure, intermittent right sided epistaxis - giuliana seal and surgicel placed today - hold saline spray for 24-48 hrs then can restart
--- NOTE | 2016-11-07 12:21 | Pharmacy Progress Note ---
Glycemic Control: Progress Nt Date of Service Nov 07, 2016. Scope Glycemic Pharmacist consulted by Dr Moyer on 11/02/16 for glycemic control and to write orders per [facility] inpatient glycemic control protocol. Objective Accuchecks BSG (last 24hrs): Test 11/06/16 16:48 11/06/16 20:47 11/07/16 06:01 11/07/16 08:39 Bedside Glucose 163 mg/dl (70-99) 141 mg/dl (70-99) 198 mg/dl (70-99) Random Glucose 234 mg/dl (70-99) Test 11/07/16 11:49 Bedside Glucose 295 mg/dl (70-99) Laboratory Data (last 24hrs) Test 11/07/16 06:01 Anion Gap 11.0 mmol/L BUN/Creatinine Ratio 22.8 Blood Urea Nitrogen 71 mg/dl Creatinine 3.10 mg/dl Potassium Level 4.6 mmol/L Sodium Level 138 mmol/L White Blood Count 6.64 K/uL HbA1c: Test 11/02/16 07:10 Hemoglobin A1c 7.8 % (4.5-5.6) H Recent Pertinent Medications Outpatient Anti-diabetic Regimen: * Glipizide 20mg PO daily * Metformin 1g PO BID * A1c = 7.8 % 11/02/16 The patient is currently receiving: * Basal insulin: Lantus 18 units every 12 hours * Correctional Insulin: Novolog Correction per scale ACHS Goal Range: Low 120 mg/dL - High 160 mg/dL Correction Factor: 18 mg/dL/unit * Prandial insulin: Per carb ratio of 1 unit per 6 grams CHO consumed * Oral Agents: On Hold Risk Factors for Insulin Resistance: * Infection: Doxycycline PO * Diet: AHA/ Htda2OT/ LowK+ Assessment & Plan ASSESSMENT: * ADA & AACE recommend a goal blood sugar range 140-180 mg/dl for the majority of critically ill & non-critically ill patients. However, more stringent targets may be selected in individual cases. For patient's age and A1c, will use 120-160mg/dL. * 66 yo type 2 DM, uncontrolled, A1c = 7.8%, only on orals as outpatient. Admitted from [facility] with ARF and Epistaxis. * Lantus increased last night and CF and CR tightened. I will wait another 24 hours before reacting to patient's blood sugars, because he has been sensitive to our changes. * Of note, patient's BSG has been rising 100 points from breakfast to lunch, likely just due to late dosing of insulin after eating and checking lunch BSG shortly after. We could consider tightening CR just for breakfast if this trend continues. PLAN FOR INPATIENT GLYCEMIC CONTROL: * Holding outpatient oral diabetes medications * Basal insulin with LANTUS 18 units SQ BID * Correctional Insulin with NOVOLOG per scale ACHS or Q6hrs while NPO * Goal Range: Low 120 mg/dL - High 160 mg/dL * Correction Factor: 18 mg/dL/unit * Nutritional / Prandial insulin per carb ratio of 1 unit per 6 grams CHO consumed * Please note that the plan above was derived based on current level of insulin resistance and hospital stress. These recommendations are appropriate for inpatient admission only. Plan of care upon discharge will need to be reassessed to avoid potential outpatient hypo/hyperglycemia. Thank you.
--- NOTE | 2016-11-07 12:30 | CARDIOLOGY PROGRESS NOTE ---
DATE: 11/07/2016 Note: The patient was asked to be reassessed regarding pacemaker function due to sensed bradycardia. Pacemaker interrogated today finds it functioning well. The patient has frequent ventricular ectopy and intermittent bigeminy with likely pulse inadvertently felt as low due to bigeminy present. Would not hold beta russ. Pacemaker functioning appropriately. [place]
[2016-11-07 13:10] LABS: COD UR NEGATIVE NG/ML (CUTOFF=50); HYDROCOD UR NEGATIVE NG/ML (CUTOFF=50); HYDROMOR UR NEGATIVE NG/ML (CUTOFF=50); HYDROXYETHYLFLURAZEPAM CONF NEGATIVE NG/ML (CUTOFF=50); HYDROXYMIDAZOLAM NEGATIVE NG/ML (CUTOFF=50); HYDROXYTRIAZOLAM CONF NEGATIVE NG/ML (CUTOFF=50); MORPHINE UR NEGATIVE NG/ML (CUTOFF=50); NORHYDROCODONE CONF UR NEGATIVE NG/ML (CUTOFF=50); OXYMORPH UR 197 NG/ML (CUTOFF=50); TEMAZEPAM CONF 338 NG/ML (CUTOFF=50)
--- NOTE | 2016-11-07 18:45 | Progress Note ---
Medicine Progress Note Date & Time of Visit: Nov 07, 2016 at 18:28. Subjective Pt was seen and examined Pt had another episode of epistaxis this morning the episode occurred after he went to use the bathroom to urinate after the episode he was shlomo and feeling lightheadedness. he denies any chest pain, palpitation, and sob Objective Last 8 Hrs Date Time Temp Pulse Resp B/P Pulse Ox O2 Delivery O2 Flow Rate FiO2 11/07/16 15:20 36.8 33 18 125/83 97 Room Air 11/07/16 13:35 113/60 Physical Exam: General- No respiratory distress Head- atraumatic Eyes- PERRL, EOMI ENT- trace of blood in the nostril Neck- supple, no JVD Lungs- clear to auscultation and percussion Heart- no murmur Abdomen- normal bowel sounds, soft Extremities-no calf tenderness Neuro- alert, oriented x 3; PERRL Skin- warm & dry Laboratory Results: Last 24 Hours Test 11/06/16 20:47 11/07/16 06:01 11/07/16 08:39 11/07/16 11:49 Bedside Glucose 141 mg/dl 198 mg/dl 295 mg/dl White Blood Count 6.64 K/uL Red Blood Count 4.25 M/uL Hemoglobin 12.9 g/dL Hematocrit 38.8 % Mean Corpuscular Volume 91.3 fL Mean Corpuscular Hemoglobin 30.4 pg Mean Corpuscular Hemoglobin Concent 33.2 g/dl RDW Standard Deviation 46.2 fL RDW Coefficient of Variation 13.9 % Platelet Count 214 K/uL Mean Platelet Volume 10.8 fL Sodium Level 138 mmol/L Potassium Level 4.6 mmol/L Chloride Level 107 mmol/L Carbon Dioxide Level 20 mmol/L Anion Gap 11.0 mmol/L Blood Urea Nitrogen 71 mg/dl Creatinine 3.10 mg/dl Est Creatinine Clear Calc Drug Dose 29.4 ml/min Estimated GFR () 23.4 Estimated GFR (Non- 20.2 BUN/Creatinine Ratio 22.8 Random Glucose 234 mg/dl Calcium Level 8.4 mg/dl Test 11/07/16 17:02 Bedside Glucose 144 mg/dl Assessment & Plan ACUTE KIDNEY INJURY CKD III with baseline creatinine around 1.5. Creatinine on admission was 3.43, then trending to 2.9-->2.6-->2.7 -->2.5 --> 2.5 --> 2.7 today TYREL may be due to volume depletion from combination of ileostomy output + diuretic therapy. FeNa was >2%,poss 'ATN from recent hospitalization Cont holding diuretic. Nephrology on board 2/2 worsening creatine today to 3.1 Diuretic has been held No nephrotoxic agents were given gentle IVF was starting x1L will continue monitor BMP closely EPISTAXIS 2 recent episodes of severe epistaxis prior to transfer to [facility] Right nostril cauterized / packed in [place] ED. Pulled on 11/03 and uneventful for past 24 hours Cont nasal saline and Afrin as instructed Hold aspirin-restart when OK with ENT (Dr. Victor Manuel Teixeira) Doxy to cover staph/strep species while nasal packing is in place and while we are hospitalized 11/06 One episode of epistaxis today Bleeding stopped after pressure applied Case discussed with Dr. Bentley that advised no need to pack it if bleeding stopped Dr. Bentley recommended If patient rebleeds, to pack the nose and transfer to [place] to perform embolization. H/H stable 2/2 Another episode of epistaxis today Case discussed with Dr. Sheree Bentley placed giuliana seal and surgicel today and he recommended to hold saline spray for 24-48 hrs, then resume If patient has another episode of epistaxis, will transfer to [place] to perform embolization. SHORTNESS OF BREATH: -Possible related to diastolic heart failure -recent treatment with Demedex caused ARF, so diuretics are on hold at this point -As Nephro agreed to continue holding diuretics at this time -CXR in am showed moderate stable cardiomegaly. No current evidence for congestive failure Stable ETOH USE [place] use of benzo as needed Increase diazepam to his previous dose 10mg TID CORONARY ARTERY DISEASE atypical chest pain prior to admission s/p CABG in 2014 Holding aspirin due to epistaxis Continue metoprolol and amlodipine. Repeat EKG reveals paced rhythm with abnormalities PM interrogation 11/03 and demonstrates normal function with 4.5 years battery life remaining. PAF noted > 1 year ago. No recurrence. No anticoagulation indicated per Cards evaluation, however, needs to continue with q3 month PM checks Troponin is negative, however, with h/o atypical chest pain and history patient will need an outpatient stress test. Will advise him at discharge Asymptomatic BRADYCARDIA Pacemaker was interrogated again today that showed it functioned fine Low HR is due to the bigeminy and frequent ventricular ectopy case discussed with Dr. Rush that recommended not to hold the Beta russ HYPERTENSION h/o FREIDA h/o stenting per [facility] records Continue metoprolol and amlodipine. Continue Toprol CL 50mg BID Will add Hydralazine 10 TID now Stable COPD Continue bronchodilators. DM TYPE 2 Hold oral agents due to acute illness / TYREL. Hgb A1C-7.8 (10/23/16) Continue insulin sliding scale Lantus / NovoLog per protocol. GOUT Continue allopurinol. CHRONIC PAIN Continue usual meds. DEPRESSION/ANXIETY Pt refused psych consult VTE PROPHYLAXIS No anticoagulants due to epistaxis. SCD's. Ambulate. RESUSCITATION STATUS Full code. DISPOSITION Expected discharge to home once renal function improves to baseline 1.5. Medical follow-up with PCP, Dr. Stephenson. Consultants: ENT, Cards, Nephro Current Inpatient Medications: Current Inpatient Medications Medications (Trade) Dose Ordered Sig/All Route Start Time Stop Time Status Last Admin Dose Admin Acetaminophen (Tylenol Tab) 650 mg Q4H PRN PO 11/01/16 06:00 12/01/16 05:59 Glucose (Glucose 40% Gel) 15-30 GRAMS 15 GRAMS... UD PRN PO 11/01/16 09:15 12/01/16 09:14 Glucose (Glucose Chew Tab) 4-8 Tablets 4 Tabl... UD PRN PO 11/01/16 09:15 12/01/16 09:14 Dextrose (Dextrose 50% 50ML Syringe) 25-50ML OF 50% DW IV FOR... UD PRN IV 11/01/16 09:15 12/01/16 09:14 Glucagon (Glucagon Inj) 1 mg UD PRN SQ 11/01/16 09:15 12/01/16 09:14 Albuterol (Ventolin Hfa Inhaler) 2 puffs QID INH 11/01/16 12:00 12/01/16 11:59 11/07/16 16:59 2 PUFFS Amlodipine Besylate (Norvasc Tab) 10 mg DAILY PO 11/02/16 08:00 12/01/16 07:59 11/07/16 09:25 10 MG Atorvastatin Calcium (Lipitor Tab) 20 mg DAILY PO 11/02/16 08:00 12/01/16 07:59 11/07/16 09:26 20 MG Fenofibrate (Tricor Tab) 145 mg DAILY PO 11/02/16 08:00 12/01/16 07:59 11/07/16 09:26 145 MG Salmeterol Xinafoate/ Fluticasone (Advair Diskus 250/50 Inh) 1 puff BID INH 11/01/16 20:00 12/01/16 19:59 11/07/16 09:26 1 PUFF Loratadine (Claritin Tab) 10 mg DAILY PO 11/02/16 08:00 12/01/16 07:59 11/02/16 08:15 10 MG Pregabalin (Lyrica Cap) 300 mg BID PO 11/01/16 20:00 12/01/16 19:59 11/07/16 09:32 300 MG Allopurinol (Zyloprim Tab) 100 mg DAILY PO 11/02/16 08:00 12/02/16 07:59 11/07/16 09:25 100 MG Nitroglycerin (Nitrostat Tab) 0.4 mg PRN PRN SL 11/01/16 13:15 12/01/16 13:14 Clonidine HCl (Catapres Tab) 0.1 mg Q4H PRN PO 11/01/16 13:15 12/01/16 13:14 11/02/16 23:37 0.1 MG Doxycycline Hyclate (Vibramycin Cap) 100 mg BID PO 11/01/16 20:00 11/11/16 19:59 11/07/16 09:25 100 MG Insulin Aspart (novoLOG ASPART) SLIDING SCALE G... ACHS SC 11/01/16 22:00 12/01/16 21:59 11/07/16 14:16 22 UNITS Miscellaneous Information (Consult Glycemic Management Pharmacy) 1 ea UD N/A 11/02/16 09:41 12/02/16 09:40 Oxymetazoline HCl (Afrin 0.05% Nasal [place]) 2 sprays Q12 NA 11/03/16 09:00 12/03/16 08:59 Future Hold 11/07/16 09:26 2 SPRAYS Metoprolol Succinate (Toprol Xl Tab) 50 mg BID PO 11/03/16 21:00 12/03/16 20:59 2/1/17 21:38 50 MG Sodium Chloride ([place] Nasal [place]) 1 sprays Q1HWA NA 11/03/16 15:00 12/03/16 14:59 Future Hold 11/07/16 09:27 1 SPRAYS Hydralazine HCl (Apresoline Tab) 10 mg TID PO 11/04/16 21:00 12/04/16 20:59 11/07/16 13:40 10 MG Insulin Glargine (Lantus Solostar Pen) 18 unit BID SC 11/06/16 21:00 12/03/16 20:59 11/07/16 09:52 18 UNIT Oxycodone/ Acetaminophen (Percocet 10-325MG Tab) 1 tab Q8H PO 11/07/16 06:00 11/21/16 05:59 11/07/16 13:40 1 TAB Diazepam 10 mg 10 mg Q8H PO 11/07/16 00:00 12/07/16 00:00 11/07/16 15:54 10 MG Sodium Chloride (Nss 1000ml) 1,000 ml @ 75 mls/hr [id number] IV 11/07/16 07:45 11/07/16 21:04 11/07/16 08:00 75 MLS/HR
[2016-11-08 04:37] VITALS: PULSE 36; PULSE 44
[2016-11-08] MEDS: OXYCODONE/ACETAMINOPHEN 10/325MG TAB PO SCH ×3 (05:44→21:02)
[2016-11-08 06:15] LABS: BASO % 0.8 %; BASO ABS # 0.05 K/uL (0-0.2); COMPLETE YES; EOS % 5.6 %; HEMATOCRIT 37.6 % (42-52); IG% 2.2 %; LYMPH % 31.8 %; LYMPH ABS # 1.92 K/uL (1.2-3.4); MEAN CELL VOLUME 93.3 fL (80-100); MEAN CORPUSCULAR HGB CONC 33.2 g/dl (32-36); MEAN PLATELET VOLUME 10.9 fL (7.4-10.4); MONO % 9.4 %; NEUT % 50.2 %; PLATELET COUNT 198 K/uL (130-400); RED BLOOD COUNT 4.03 M/uL (4.7-6.1); WHITE BLOOD COUNT 6.04 K/uL (4.8-10.8)
[2016-11-08 06:47] LABS: BUN/CREATININE RATIO 23.4 (10-20); CALCIUM 8.6 mg/dl (8.5-10.1); CREATININE 2.8 mg/dl (0.60-1.40); MAGNESIUM 2.1 mg/dl (1.8-2.4); POTASSIUM 4.8 mmol/L (3.5-5.1)
[2016-11-08 06:57] LABS: THYROID STIMULATING HORMONE 2.54 uIu/ml (0.300-4.500)
[2016-11-08] MEDS: DIAZEPAM 5MG TAB PO SCH ×3 (08:07→23:32)
[2016-11-08] MEDS: PREGABALIN 150 MG CAP PO SCH ×2 (08:07→21:01)
[2016-11-08 08:09] VITALS: BP 120/70; PULSE 60; TEMP 36.3; O2SAT 97
[2016-11-08] MEDS: METOPROLOL SUCC 50MG EXT REL TAB PO SCH ×2 (08:09→21:00)
[2016-11-08] MEDS: AMLODIPINE BESYLATE 5 MG TAB PO SCH (08:10)
[2016-11-08] MEDS: ALLOPURINOL 100 MG TAB PO SCH (08:11)
[2016-11-08] MEDS: ATORVASTATIN 20 MG TAB PO SCH (08:11)
[2016-11-08] MEDS: FENOFIBRATE 145 MG TAB PO SCH (08:11)
[2016-11-08] MEDS: DOXYCYCLINE HYCLATE 100 MG CAP PO SCH ×2 (08:11→21:01)
[2016-11-08] MEDS: LORATADINE 10 MG TAB PO SCH (08:12)
[2016-11-08] MEDS: HydrALAZINE 10 MG TAB PO SCH ×3 (08:12→21:01)
[2016-11-08] MEDS: ALBUTEROL HFA 8 GM INHALER INH SCH ×4 (08:13→21:02)
[2016-11-08] MEDS: FLUTICASONE/SALMETEROL 250/50 (ADVAIR) 14 PUFF/1 INHALER INH SCH ×2 (08:13→21:02)
--- NOTE | 2016-11-08 09:19 | Nephrology Progress Note ---
Nephrology Progress Note Date of Service: Nov 08, 2016. Subjective cardiology reevaluated pt and pacer and reiterates that pacer function appropriate, no actual bradycardia. no change in pt chronic pain. eating well ; denies voiding sx. ent did another nosebleed prevention procedure Objective Date Time Temp Pulse Resp B/P Pulse Ox O2 Delivery O2 Flow Rate FiO2 11/08/16 08:09 36.3 60 18 120/70 97 Room Air 11/08/16 04:37 36 44 11/08/16 00:30 Room Air 11/07/16 23:54 36.4 52 16 118/65 99 Room Air 11/07/16 21:26 30 122/72 11/07/16 15:30 Room Air 11/07/16 15:20 36.8 33 18 125/83 97 Room Air 11/07/16 13:35 113/60 11/07/16 10:21 31 152/66 98 Room Air 31 11/07/16 10:03 36.5 Physical Exam: GENERAL: Awake, alert, oriented x3. nad; on RA, eating heartily EYES: No scleral icterus. ENT: Moist mucous membranes. NECK: Supple. PULMONARY: diminished air entry but clear CARDIAC: bigeminy on exam at times, else RRR. parasternal tenderness to palpation as at previous exam ABDOMEN: Bowel sounds positive, soft, nontender. ostomy present; no machuca EXTREMITIES: no edema NEUROLOGIC: lion, fluent speech DERMATOLOGIC: No rash or ulcers noted. Current Inpatient Medications Medications (Trade) Dose Ordered Sig/All Route Start Time Stop Time Status Last Admin Dose Admin Acetaminophen (Tylenol Tab) 650 mg Q4H PRN PO 11/01/16 06:00 12/01/16 05:59 Glucose (Glucose 40% Gel) 15-30 GRAMS 15 GRAMS... UD PRN PO 11/01/16 09:15 12/01/16 09:14 Glucose (Glucose Chew Tab) 4-8 Tablets 4 Tabl... UD PRN PO 11/01/16 09:15 12/01/16 09:14 Dextrose (Dextrose 50% 50ML Syringe) 25-50ML OF 50% DW IV FOR... UD PRN IV 11/01/16 09:15 12/01/16 09:14 Glucagon (Glucagon Inj) 1 mg UD PRN SQ 11/01/16 09:15 12/01/16 09:14 Albuterol (Ventolin Hfa Inhaler) 2 puffs QID INH 11/01/16 12:00 12/01/16 11:59 11/08/16 08:13 2 PUFFS Amlodipine Besylate (Norvasc Tab) 10 mg DAILY PO 11/02/16 08:00 12/01/16 07:59 11/08/16 08:10 10 MG Atorvastatin Calcium (Lipitor Tab) 20 mg DAILY PO 11/02/16 08:00 12/01/16 07:59 11/08/16 08:11 20 MG Fenofibrate (Tricor Tab) 145 mg DAILY PO 11/02/16 08:00 12/01/16 07:59 11/08/16 08:11 145 MG Salmeterol Xinafoate/ Fluticasone (Advair Diskus 250/50 Inh) 1 puff BID INH 11/01/16 20:00 12/01/16 19:59 11/08/16 08:13 1 PUFF Loratadine (Claritin Tab) 10 mg DAILY PO 11/02/16 08:00 12/01/16 07:59 11/02/16 08:15 10 MG Pregabalin (Lyrica Cap) 300 mg BID PO 11/01/16 20:00 12/01/16 19:59 11/08/16 08:07 300 MG Allopurinol (Zyloprim Tab) 100 mg DAILY PO 11/02/16 08:00 12/02/16 07:59 11/08/16 08:11 100 MG Nitroglycerin (Nitrostat Tab) 0.4 mg PRN PRN SL 11/01/16 13:15 12/01/16 13:14 Clonidine HCl (Catapres Tab) 0.1 mg Q4H PRN PO 11/01/16 13:15 12/01/16 13:14 11/02/16 23:37 0.1 MG Doxycycline Hyclate (Vibramycin Cap) 100 mg BID PO 11/01/16 20:00 11/11/16 19:59 11/08/16 08:11 100 MG Insulin Aspart (novoLOG ASPART) SLIDING SCALE G... ACHS SC 11/01/16 22:00 12/01/16 21:59 11/07/16 21:42 4 UNITS Miscellaneous Information (Consult Glycemic Management Pharmacy) 1 ea UD N/A 11/02/16 09:41 12/02/16 09:40 Oxymetazoline HCl (Afrin 0.05% Nasal [place]) 2 sprays Q12 NA 11/03/16 09:00 12/03/16 08:59 Future Hold 11/07/16 09:26 2 SPRAYS Metoprolol Succinate (Toprol Xl Tab) 50 mg BID PO 11/03/16 21:00 12/03/16 20:59 11/08/16 08:09 50 MG Sodium Chloride ([place] Nasal [place]) 1 sprays Q1HWA NA 11/03/16 15:00 12/03/16 14:59 Future Hold 11/07/16 09:27 1 SPRAYS Hydralazine HCl (Apresoline Tab) 10 mg TID PO 11/04/16 21:00 12/04/16 20:59 11/08/16 08:12 10 MG Insulin Glargine (Lantus Solostar Pen) 18 unit BID SC 11/06/16 21:00 12/03/16 20:59 11/07/16 21:42 9 UNIT Oxycodone/ Acetaminophen (Percocet 10-325MG Tab) 1 tab Q8H PO 11/07/16 06:00 11/21/16 05:59 11/08/16 05:44 1 TAB Diazepam (Valium Tab) 10 mg Q8H PO 11/07/16 00:00 12/07/16 00:00 11/08/16 08:07 10 MG Last 24 Hours Test 11/07/16 11:49 11/07/16 17:02 11/07/16 21:13 11/08/16 05:53 Bedside Glucose 295 mg/dl 144 mg/dl 104 mg/dl White Blood Count 6.04 K/uL Red Blood Count 4.03 M/uL Hemoglobin 12.5 g/dL Hematocrit 37.6 % Mean Corpuscular Volume 93.3 fL Mean Corpuscular Hemoglobin 31.0 pg Mean Corpuscular Hemoglobin Concent 33.2 g/dl Platelet Count 198 K/uL Mean Platelet Volume 10.9 fL Neutrophils (%) (Auto) 50.2 % Lymphocytes (%) (Auto) 31.8 % Monocytes (%) (Auto) 9.4 % Eosinophils (%) (Auto) 5.6 % Basophils (%) (Auto) 0.8 % Neutrophils # (Auto) 3.03 K/uL Lymphocytes # (Auto) 1.92 K/uL Monocytes # (Auto) 0.57 K/uL Eosinophils # (Auto) 0.34 K/uL Basophils # (Auto) 0.05 K/uL RDW Standard Deviation 47.7 fL RDW Coefficient of Variation 14.0 % Immature Granulocyte % (Auto) 2.2 % Immature Granulocyte # (Auto) 0.13 K/uL Sodium Level 141 mmol/L Potassium Level 4.8 mmol/L Chloride Level 110 mmol/L Carbon Dioxide Level 20 mmol/L Anion Gap 11.0 mmol/L Blood Urea Nitrogen 65 mg/dl Creatinine 2.80 mg/dl Est Creatinine Clear Calc Drug Dose 32.7 ml/min Estimated GFR () 26.4 Estimated GFR (Non- 22.8 BUN/Creatinine Ratio 23.4 Random Glucose 141 mg/dl Calcium Level 8.6 mg/dl Magnesium Level 2.1 mg/dl Thyroid Stimulating Hormone (TSH) 2.540 uIu/ml Chemistry Specimen Hemolysis Assessment & Plan 66 y/o M w/ CKD, recurrent epistaxis, longstanding DM, at times uncontrolled HTN , CAD s/p CABG/pacer, heavy EtOH use, partial colectomy after C diff recently hospitalized in [place] for chest pain, GUZMAN, and epistaxis and w/ worsening renal function in setting of marked HTN, acute on chronic HF: discharged 10/25. No mention of receiving IV contrast that admission. His baseline creatinine had been 1.5-1.7 as of 04/2016; it was 2.2 on 10/17; 1.8 on 10/21; 3.1 on 10/22; 2.4 on 10/25 at [place] d/c. On admission here again after presenting with chest pain and recurrent epistaxis, creatinine was 3.7 on 10/31. Nonoliguric ATN / acute kidney injury on at least advanced stage 3 chronic kidney disease with baseline creatinine of 1.5-1.7 summer 2015 and baseline probably more like 2.0 10/2016 prior to [place] admission and then recent TYREL with creatinine up to 3.14 during the previous hospitalization in [place] creatinine labile but definitely worsens w/ nosebleeds; cardiology assures us no clinically significant arrhythmias/ pacer function normal; urine sediment remains bland except for glucosuria -no renal artery stenosis; uric acid and CK are wnl ->>>suspect ATN related to HR and perfusion variability in the setting of DM, HTN -cont daily bmp, avoidance of meds that can worsen renal function in this phase of TYREL recovery; not anemic and chemistries acceptable -cont to weigh standing daily and I/O >>again stressed w/ pt he absolutely needs to est care w/ Dr. Washington in [place] CKD clinic or other nephro provider after hospital d/c as he has significant and worsening CKD > recommend pcp follow up with in one week with bmp, cbc, uacm, prot/creat; recommend ckd clinic appt in [place] w/in 2-4 wks of d/c or [place] same timeframe w/ Padmini or myself -no nsaids or diuretics or METFORMIN at d/c >>>>>may need whole new diabetic teaching/ med regimen off of metformin HTN acceptable control currently Gout. current allopurinol dose acceptable Appreciate consult; will follow with you. Care coordinated w/ Dr. Gerber
[2016-11-08] MEDS: INSULIN ASPART 100 UNITS/ML 3 ML PEN SC SCH ×4 (09:25→21:25)
[2016-11-08] MEDS: INSULIN GLARGINE SOLOSTAR 100 UNITS/ML 3 ML PEN SC SCH ×2 (09:27→21:26)
[2016-11-08 10:27] VITALS: O2SAT 97
--- NOTE | 2016-11-08 12:29 | Pharmacy Progress Note ---
Glycemic Control: Progress Nt Date of Service Nov 08, 2016. Scope Glycemic Pharmacist consulted by Dr Moyer on 11/02/16 for glycemic control and to write orders per [facility] inpatient glycemic control protocol. Objective Accuchecks BSG (last 24hrs): Test 11/07/16 17:02 11/07/16 21:13 11/08/16 05:53 11/08/16 09:22 Bedside Glucose 144 mg/dl (70-99) 104 mg/dl (70-99) 211 mg/dl (70-99) Random Glucose 141 mg/dl (70-99) Test 11/08/16 12:04 Bedside Glucose 252 mg/dl (70-99) Laboratory Data (last 24hrs) Test 11/08/16 05:53 Anion Gap 11.0 mmol/L BUN/Creatinine Ratio 23.4 Blood Urea Nitrogen 65 mg/dl Creatinine 2.80 mg/dl Potassium Level 4.8 mmol/L Sodium Level 141 mmol/L White Blood Count 6.04 K/uL Red Blood Count 4.03 M/uL Hemoglobin 12.5 g/dL Hematocrit 37.6 % Mean Corpuscular Volume 93.3 fL Mean Corpuscular Hemoglobin 31.0 pg Mean Corpuscular Hemoglobin Concent 33.2 g/dl Platelet Count 198 K/uL Mean Platelet Volume 10.9 fL Neutrophils (%) (Auto) 50.2 % Lymphocytes (%) (Auto) 31.8 % Monocytes (%) (Auto) 9.4 % Eosinophils (%) (Auto) 5.6 % Basophils (%) (Auto) 0.8 % Neutrophils # (Auto) 3.03 K/uL Lymphocytes # (Auto) 1.92 K/uL Monocytes # (Auto) 0.57 K/uL Eosinophils # (Auto) 0.34 K/uL Basophils # (Auto) 0.05 K/uL HbA1c: Test 11/02/16 07:10 Hemoglobin A1c 7.8 % (4.5-5.6) H Recent Pertinent Medications Outpatient Anti-diabetic Regimen: * Glipizide 20mg PO daily * Metformin 1,000mg PO BID The patient is currently receiving: * Basal insulin: Lantus 18 units every 12 hours (1/2 dose if BSG < 110mg/dl) * Correctional Insulin: Novolog Correction per scale ACHS Goal Range: Low 110 mg/dL - High 150 mg/dL Correction Factor: 18 mg/dL/unit * Prandial insulin: Per carb ratio of 1 unit per 6 grams CHO consumed * Oral Agents: On hold for admission Risk Factors for Insulin Resistance: * Diet Risk Factors for Insulin Sensitivity: * Impaired renal function Assessment & Plan ASSESSMENT: * 66yo T2DM male with adequately controlled diabetes per recent A1c * Pt is maintained on oral agents as an outpatient. Oral agents are not recommended for inpatient use d/t difficulty titrating in acute situations, changes in PO intake, and drug interactions. Pt initiated on SQ basal bolus insulin regimen for inpatient use. * Patient has been receiving ~ 80 units of insulin per day * BSGs ranging 104-295mg/dl over the past 24 hrs * Insulin doses have been titrated upwards daily based on BSG trends * HS BSG was 104mg/dl last evening --> half dose of Lantus given per order. However, Pt now with re-bound hyperglycemia this AM most likely d/t too significant dose reduction in basal insulin. Will adjust insulin dosing parameters slightly. * ADA & AACE recommend a goal blood sugar range 140-180 mg/dl for the majority of critically ill & non-critically ill patients. However, more stringent targets may be selected in individual cases. Will utilize more stringent target of 110-150mg/dl based on outpatient tight glycemic control. PLAN FOR INPATIENT GLYCEMIC CONTROL: * Hold outpatient oral diabetes medications * Basal insulin with LANTUS dosing based on BSG * If BSG 110mg/dl or below --> Administer Lantus 12 units * If BSG 111-180mg/dl --> Administer Lantus 18 units * If BSG 181mg/dl or above --> Administer Lantus 20 units * Correctional Insulin with NOVOLOG per scale ACHS or Q6hrs while NPO * Goal Range: Low 110 mg/dL - High 150 mg/dL * Correction Factor: 18 mg/dL/unit * Nutritional / Prandial insulin per carb ratio of 1 unit per 6 grams CHO consumed * Please note that the plan above was derived based on current level of insulin resistance and hospital stress. These recommendations are appropriate for inpatient admission only. Plan of care upon discharge will need to be reassessed to avoid potential outpatient hypo/hyperglycemia. Thank you.
[2016-11-08 15:24] VITALS: BP 152/77; PULSE 58; TEMP 36.3; O2SAT 97
[2016-11-08 21:37] VITALS: BP 124/67; PULSE 64
[2016-11-08 23:31] VITALS: BP 126/76; PULSE 64; TEMP 37.1; O2SAT 94
[2016-11-09 04:28] VITALS: BP 136/76
[2016-11-09] MEDS: OXYCODONE/ACETAMINOPHEN 10/325MG TAB PO SCH ×3 (04:30→21:54)
[2016-11-09 04:46] LABS: BASO % 0.8 %; BASO ABS # 0.05 K/uL (0-0.2); COMPLETE YES; HEMATOCRIT 37.2 % (42-52); IG% 1.5 %; LYMPH % 27.9 %; LYMPH ABS # 1.82 K/uL (1.2-3.4); MEAN CORPUSCULAR HGB CONC 34.4 g/dl (32-36); MEAN PLATELET VOLUME 10.7 fL (7.4-10.4); MONO % 8.1 %; NEUT % 55.7 %; PLATELET COUNT 213 K/uL (130-400); WHITE BLOOD COUNT 6.53 K/uL (4.8-10.8)
[2016-11-09 05:07] LABS: BUN/CREATININE RATIO 21.1 (10-20); CALCIUM 8.4 mg/dl (8.5-10.1); CREATININE 3.2 mg/dl (0.60-1.40); POTASSIUM 4.6 mmol/L (3.5-5.1)
[2016-11-09 07:01] VITALS: BP 136/72; PULSE 32; TEMP 36.5; O2SAT 98
[2016-11-09] MEDS: INSULIN ASPART 100 UNITS/ML 3 ML PEN SC SCH ×4 (08:00→21:00)
[2016-11-09] MEDS: FLUTICASONE/SALMETEROL 250/50 (ADVAIR) 14 PUFF/1 INHALER INH SCH ×2 (08:11→21:00)
[2016-11-09] MEDS: ALBUTEROL HFA 8 GM INHALER INH SCH ×4 (08:11→21:00)
[2016-11-09] MEDS: FENOFIBRATE 145 MG TAB PO SCH (08:12)
[2016-11-09] MEDS: ALLOPURINOL 100 MG TAB PO SCH ×2 (08:12→08:27)
[2016-11-09] MEDS: METOPROLOL SUCC 50MG EXT REL TAB PO SCH ×2 (08:12→21:19)
[2016-11-09] MEDS: DOXYCYCLINE HYCLATE 100 MG CAP PO SCH (08:12)
[2016-11-09] MEDS: HydrALAZINE 10 MG TAB PO SCH ×3 (08:13→21:19)
[2016-11-09] MEDS: DIAZEPAM 5MG TAB PO SCH (08:13)
[2016-11-09] MEDS: AMLODIPINE BESYLATE 5 MG TAB PO SCH (08:13)
[2016-11-09] MEDS: ATORVASTATIN 20 MG TAB PO SCH (08:13)
[2016-11-09] MEDS: LORATADINE 10 MG TAB PO SCH ×2 (08:13→08:27)
[2016-11-09] MEDS: PREGABALIN 150 MG CAP PO SCH ×2 (08:13→21:39)
[2016-11-09] MEDS: INSULIN GLARGINE SOLOSTAR 100 UNITS/ML 3 ML PEN SC SCH ×2 (09:00→21:53)
--- NOTE | 2016-11-09 10:33 | Progress Note ---
Medicine Progress Note Date & Time of Visit: Nov 09, 2016 at 07:41. Subjective Pt was seen and examined yesterday I saw the pt, typed my note and even discussed the case with Dr. Jian It seems like i forgot to save the yesterday note. This morning I saw the patient, he said that he wants his oxycodone to change to qid. I explained to him that i reviewed the [place] prescription drug monitoring and his last notes and chart from Dr. Stephenson. his last script for oxycodone was on 10/25/16 for 1 tab TID #90tabs. Also his last script for Valium was on 10/03/16 for 1 tab at hs #30tabs. Pt said that he told his PCP that he needs it TID because it help him to calm down He said that he is buying valium from the street (some place in [facility]). He said that he is been on Valium since 1973. Pt said that he had a short episode of epistaxis this morning that stopped after a few minutes. He said that he was not that bad. I asked him if he called the nurse for help He said the nurse came to help him, he cursed the nurse and was very angry at her. Pt has no active nose bleeding. As per nurse note, there was no active bleeding flow, except some blood on a tissue paper Pt denies any chest pain, palpitation, dizziness and palpitation. Objective Last 8 Hrs Date Time Temp Pulse Resp B/P Pulse Ox O2 Delivery O2 Flow Rate FiO2 11/09/16 04:28 136/76 11/09/16 00:00 Room Air Physical Exam: General- No respiratory distress Head- atraumatic Eyes- PERRL, EOMI ENT- no blood in nostril Neck- supple, no JVD Lungs- clear to auscultation and percussion Heart- no murmur Abdomen- normal bowel sounds, soft, +ostomy bag Extremities-no calf tenderness Neuro- alert, oriented x 3; PERRL Skin- warm & dry Laboratory Results: Last 24 Hours Test 11/08/16 09:22 11/08/16 12:04 11/08/16 16:58 11/08/16 20:45 Bedside Glucose 211 mg/dl 252 mg/dl 165 mg/dl 178 mg/dl Test 11/09/16 04:27 White Blood Count 6.53 K/uL Red Blood Count 4.00 M/uL Hemoglobin 12.8 g/dL Hematocrit 37.2 % Mean Corpuscular Volume 93.0 fL Mean Corpuscular Hemoglobin 32.0 pg Mean Corpuscular Hemoglobin Concent 34.4 g/dl Platelet Count 213 K/uL Mean Platelet Volume 10.7 fL Neutrophils (%) (Auto) 55.7 % Lymphocytes (%) (Auto) 27.9 % Monocytes (%) (Auto) 8.1 % Eosinophils (%) (Auto) 6.0 % Basophils (%) (Auto) 0.8 % Neutrophils # (Auto) 3.64 K/uL Lymphocytes # (Auto) 1.82 K/uL Monocytes # (Auto) 0.53 K/uL Eosinophils # (Auto) 0.39 K/uL Basophils # (Auto) 0.05 K/uL RDW Standard Deviation 47.2 fL RDW Coefficient of Variation 13.8 % Immature Granulocyte % (Auto) 1.5 % Immature Granulocyte # (Auto) 0.10 K/uL Sodium Level 140 mmol/L Potassium Level 4.6 mmol/L Chloride Level 109 mmol/L Carbon Dioxide Level 20 mmol/L Anion Gap 11.0 mmol/L Blood Urea Nitrogen 68 mg/dl Creatinine 3.20 mg/dl Est Creatinine Clear Calc Drug Dose 28.6 ml/min Estimated GFR () 22.5 Estimated GFR (Non- 19.4 BUN/Creatinine Ratio 21.1 Random Glucose 162 mg/dl Calcium Level 8.4 mg/dl Assessment & Plan ACUTE KIDNEY INJURY CKD III with baseline creatinine around 1.5. Creatinine on admission was 3.43, then trending to 2.9-->2.6-->2.7 -->2.5 --> 2.5 --> 2.7-->3.1--2.8--3.2 today TYREL may be due to volume depletion from combination of ileostomy output + diuretic therapy. FeNa was >2%,poss 'ATN from recent hospitalization Cont holding diuretic. Nephrology on board 11/09 worsening creatine today to 3.2 Diuretic has been held since the admission No nephrotoxic agents were given Etiology unknown will continue monitor BMP closely will start on IVF with albumin, will watch him for fluid overload Case discussed with Dr. Oncu Possible consider a renal artery angiogram if creatine not improved. EPISTAXIS 2 recent episodes of severe epistaxis prior to transfer to [facility] Right nostril cauterized / packed in [place] [facility]. Pulled on 11/03 and uneventful for past 24 hours Cont nasal saline and Afrin as instructed Hold aspirin-restart when OK with ENT (Dr. Victor Manuel Teixeira) Doxy to cover staph/strep species while nasal packing is in place and while we are hospitalized 11/06 One episode of epistaxis today Bleeding stopped after pressure applied Case discussed with Dr. Bentley that advised no need to pack it if bleeding stopped Dr. Bentlye recommended If patient rebleeds, to pack the nose and transfer to [place] to perform embolization. H/H stable 11/09 Another episode of epistaxis on 11/07 Pt said that he had an episode this morning around 4 am. But nurse only noted some blood bads on a tissue paper No active bleeding Dr. Bentley placed giuliana seal and surgicel today and he recommended to hold saline spray for 24-48 hrs, then resume If patient has another episode of epistaxis, will transfer to [place] to perform embolization. D/C doxycline Will resume his nasal spray today Will try to discuss the case again with Dr. Bentley today SHORTNESS OF BREATH: -Possible related to diastolic heart failure -recent treatment with Demedex caused ARF, so diuretics are on hold at this point -As Nephro agreed to continue holding diuretics at this time -CXR in am showed moderate stable cardiomegaly. No current evidence for congestive failure Stable ETOH USE [place] use of benzo as needed I reviewed his oupt chart, he was getting the valium at hs Pt said that he is been taking the valium TID, and he is been on it since 1974 He said that he usually got them from the street will decrease valium to BID prn CORONARY ARTERY DISEASE atypical chest pain prior to admission s/p CABG in 2014 Holding aspirin due to epistaxis Continue metoprolol and amlodipine. Repeat EKG reveals paced rhythm with abnormalities PM interrogation 11/03 and demonstrates normal function with 4.5 years battery life remaining. PAF noted > 1 year ago. No recurrence. No anticoagulation indicated per Cards evaluation, however, needs to continue with q3 month PM checks Troponin is negative, however, with h/o atypical chest pain and history patient will need an outpatient stress test. Will advise him at discharge Asymptomatic BRADYCARDIA Pacemaker was interrogated again today that showed it functioned fine Low HR is due to the bigeminy and frequent ventricular ectopy case discussed with Dr. Rush that recommended not to hold the Beta russ HYPERTENSION h/o FREIDA h/o stenting per EPIC records Continue metoprolol and amlodipine. Continue Toprol CL 50mg BID Will add Hydralazine 10 TID now Stable COPD Continue bronchodilators. DM TYPE 2 Hold oral agents due to acute illness / TYREL. Hgb A1C-7.8 (10/23/16) Continue insulin sliding scale Lantus / NovoLog per protocol. GOUT Continue allopurinol. CHRONIC PAIN Continue usual meds. Discussed with pt that iwill not increase oxycodone to QID due to the decline in his kidney fx, also he is always sleeping when i came to talk to him. Continue current management DEPRESSION/ANXIETY Pt refused psych consult VTE PROPHYLAXIS No anticoagulants due to epistaxis. SCD's. Ambulate. RESUSCITATION STATUS Full code. DISPOSITION Expected discharge to home once renal function improves to baseline 1.5. Medical follow-up with PCP, Dr. Stephenson. Consultants: ENT, Cards, Nephro Current Inpatient Medications: Current Inpatient Medications Medications (Trade) Dose Ordered Sig/All Route Start Time Stop Time Status Last Admin Dose Admin Acetaminophen (Tylenol Tab) 650 mg Q4H PRN PO 11/01/16 06:00 12/01/16 05:59 Glucose (Glucose 40% Gel) 15-30 GRAMS 15 GRAMS... UD PRN PO 11/01/16 09:15 12/01/16 09:14 Glucose (Glucose Chew Tab) 4-8 Tablets 4 Tabl... UD PRN PO 11/01/16 09:15 12/01/16 09:14 Dextrose (Dextrose 50% 50ML Syringe) 25-50ML OF 50% DW IV FOR... UD PRN IV 11/01/16 09:15 12/01/16 09:14 Glucagon (Glucagon Inj) 1 mg UD PRN SQ 11/01/16 09:15 12/01/16 09:14 Albuterol (Ventolin Hfa Inhaler) 2 puffs QID INH 11/01/16 12:00 12/01/16 11:59 11/08/16 21:02 2 PUFFS Amlodipine Besylate (Norvasc Tab) 10 mg DAILY PO 11/02/16 08:00 12/01/16 07:59 11/08/16 08:10 10 MG Atorvastatin Calcium (Lipitor Tab) 20 mg DAILY PO 11/02/16 08:00 12/01/16 07:59 11/08/16 08:11 20 MG Fenofibrate (Tricor Tab) 145 mg DAILY PO 11/02/16 08:00 12/01/16 07:59 11/08/16 08:11 145 MG Salmeterol Xinafoate/ Fluticasone (Advair Diskus 250/50 Inh) 1 puff BID INH 11/01/16 20:00 12/01/16 19:59 11/08/16 21:02 1 PUFF Loratadine (Claritin Tab) 10 mg DAILY PO 11/02/16 08:00 12/01/16 07:59 11/02/16 08:15 10 MG Pregabalin (Lyrica Cap) 300 mg BID PO 11/01/16 20:00 12/01/16 19:59 11/08/16 21:01 300 MG Allopurinol (Zyloprim Tab) 100 mg DAILY PO 11/02/16 08:00 12/02/16 07:59 11/08/16 08:11 100 MG Nitroglycerin (Nitrostat Tab) 0.4 mg PRN PRN SL 11/01/16 13:15 12/01/16 13:14 Clonidine HCl (Catapres Tab) 0.1 mg Q4H PRN PO 11/01/16 13:15 12/01/16 13:14 11/02/16 23:37 0.1 MG Doxycycline Hyclate (Vibramycin Cap) 100 mg BID PO 11/01/16 20:00 11/11/16 19:59 11/08/16 21:01 100 MG Insulin Aspart (novoLOG ASPART) SLIDING SCALE G... ACHS SC 11/01/16 22:00 12/01/16 21:59 11/08/16 21:25 2 UNITS Miscellaneous Information (Consult Glycemic Management Pharmacy) 1 ea UD N/A 11/02/16 09:41 12/02/16 09:40 Oxymetazoline HCl (Afrin 0.05% Nasal [place]) 2 sprays Q12 NA 11/03/16 09:00 12/03/16 08:59 Future Hold 11/07/16 09:26 2 SPRAYS Metoprolol Succinate (Toprol Xl Tab) 50 mg BID PO 11/03/16 21:00 12/03/16 20:59 11/08/16 21:00 50 MG Sodium Chloride (Carbon Nasal [place]) 1 sprays Q1HWA NA 11/03/16 15:00 12/03/16 14:59 Future Hold 11/07/16 09:27 1 SPRAYS Hydralazine HCl (Apresoline Tab) 10 mg TID PO 11/04/16 21:00 12/04/16 20:59 11/08/16 21:01 10 MG Oxycodone/ Acetaminophen (Percocet 10-325MG Tab) 1 tab Q8H PO 11/07/16 06:00 11/21/16 05:59 11/09/16 04:30 1 TAB Diazepam (Valium Tab) 10 mg Q8H PO 11/07/16 00:00 12/07/16 00:00 11/08/16 15:52 10 MG Insulin Glargine (Lantus Solostar Pen) see protocol text BID SC 11/08/16 21:00 12/08/16 20:59 11/08/16 21:26 18 UNIT
--- NOTE | 2016-11-09 10:50 | Nephrology Progress Note ---
Nephrology Progress Note Date of Service: Nov 09, 2016. Subjective 66 yo male with blaze/atn of unclear etiology with presumed atn. pacemaker working well. pt eating and drinking well. does have ostomy with output. laying flat and not sob but does get sob with exertion at baseline. has recurrent epistaxis-has another nose bleed last night. Objective Date Time Temp Pulse Resp B/P Pulse Ox O2 Delivery O2 Flow Rate FiO2 11/09/16 08:01 Room Air 11/09/16 07:01 36.5 32 16 136/72 98 Room Air 11/09/16 04:28 136/76 11/09/16 00:00 Room Air 11/08/16 23:31 37.1 64 16 126/76 94 Room Air 11/08/16 21:37 64 124/67 11/08/16 16:00 Room Air 11/08/16 15:24 36.3 58 17 152/77 97 Room Air Physical Exam: General-aaox3 Eyes-no scleral icterus ENT-mmm Neck-supple Lungs-cta Heart-irregularly irregularly Abdomen-bs+ s/nt/nd Extremities-no c/c/e Neuro-nonfocal Current Inpatient Medications Medications (Trade) Dose Ordered Sig/All Route Start Time Stop Time Status Last Admin Dose Admin Acetaminophen (Tylenol Tab) 650 mg Q4H PRN PO 11/01/16 06:00 12/01/16 05:59 Glucose (Glucose 40% Gel) 15-30 GRAMS 15 GRAMS... UD PRN PO 11/01/16 09:15 12/01/16 09:14 Glucose (Glucose Chew Tab) 4-8 Tablets 4 Tabl... UD PRN PO 11/01/16 09:15 12/01/16 09:14 Dextrose (Dextrose 50% 50ML Syringe) 25-50ML OF 50% DW IV FOR... UD PRN IV 11/01/16 09:15 12/01/16 09:14 Glucagon (Glucagon Inj) 1 mg UD PRN SQ 11/01/16 09:15 12/01/16 09:14 Albuterol (Ventolin Hfa Inhaler) 2 puffs QID INH 11/01/16 12:00 12/01/16 11:59 11/09/16 08:11 2 PUFFS Amlodipine Besylate (Norvasc Tab) 10 mg DAILY PO 11/02/16 08:00 12/01/16 07:59 11/09/16 08:13 10 MG Atorvastatin Calcium (Lipitor Tab) 20 mg DAILY PO 11/02/16 08:00 12/01/16 07:59 11/09/16 08:13 20 MG Fenofibrate (Tricor Tab) 145 mg DAILY PO 11/02/16 08:00 12/01/16 07:59 11/09/16 08:12 145 MG Salmeterol Xinafoate/ Fluticasone (Advair Diskus 250/50 Inh) 1 puff BID INH 11/01/16 20:00 12/01/16 19:59 11/09/16 08:11 1 PUFF Loratadine (Claritin Tab) 10 mg DAILY PO 11/02/16 08:00 12/01/16 07:59 11/02/16 08:15 10 MG Pregabalin (Lyrica Cap) 300 mg BID PO 11/01/16 20:00 12/01/16 19:59 11/09/16 08:13 300 MG Allopurinol (Zyloprim Tab) 100 mg DAILY PO 11/02/16 08:00 12/02/16 07:59 11/08/16 08:11 100 MG Nitroglycerin (Nitrostat Tab) 0.4 mg PRN PRN SL 11/01/16 13:15 12/01/16 13:14 Clonidine HCl (Catapres Tab) 0.1 mg Q4H PRN PO 11/01/16 13:15 12/01/16 13:14 11/02/16 23:37 0.1 MG Doxycycline Hyclate (Vibramycin Cap) 100 mg BID PO 11/01/16 20:00 11/11/16 19:59 11/09/16 08:12 100 MG Insulin Aspart (novoLOG ASPART) SLIDING SCALE G... ACHS SC 11/01/16 22:00 12/01/16 21:59 11/09/16 08:00 13 UNITS Miscellaneous Information (Consult Glycemic Management Pharmacy) 1 ea UD N/A 11/02/16 09:41 12/02/16 09:40 Oxymetazoline HCl (Afrin 0.05% Nasal [place]) 2 sprays Q12 NA 11/03/16 09:00 12/03/16 08:59 Future Hold 11/07/16 09:26 2 SPRAYS Metoprolol Succinate (Toprol Xl Tab) 50 mg BID PO 11/03/16 21:00 12/03/16 20:59 11/09/16 08:12 50 MG Sodium Chloride ([place] Nasal [place]) 1 sprays Q1HWA NA 11/03/16 15:00 12/03/16 14:59 Future Hold 11/07/16 09:27 1 SPRAYS Hydralazine HCl (Apresoline Tab) 10 mg TID PO 11/04/16 21:00 12/04/16 20:59 11/09/16 08:13 10 MG Oxycodone/ Acetaminophen (Percocet 10-325MG Tab) 1 tab Q8H PO 11/07/16 06:00 11/21/16 05:59 11/09/16 04:30 1 TAB Diazepam (Valium Tab) 10 mg Q8H PO 11/07/16 00:00 12/07/16 00:00 11/09/16 08:13 10 MG Insulin Glargine see protocol text BID SC 11/08/16 21:00 12/08/16 20:59 11/09/16 09:00 18 UNIT Sodium Chloride (Nss 1000ml) 1,000 ml @ 100 mls/hr Q10H IV 11/09/16 10:45 12/09/16 10:44 Last 24 Hours Test 11/08/16 12:04 11/08/16 16:58 11/08/16 20:45 11/09/16 04:27 Bedside Glucose 252 mg/dl 165 mg/dl 178 mg/dl White Blood Count 6.53 K/uL Red Blood Count 4.00 M/uL Hemoglobin 12.8 g/dL Hematocrit 37.2 % Mean Corpuscular Volume 93.0 fL Mean Corpuscular Hemoglobin 32.0 pg Mean Corpuscular Hemoglobin Concent 34.4 g/dl Platelet Count 213 K/uL Mean Platelet Volume 10.7 fL Neutrophils (%) (Auto) 55.7 % Lymphocytes (%) (Auto) 27.9 % Monocytes (%) (Auto) 8.1 % Eosinophils (%) (Auto) 6.0 % Basophils (%) (Auto) 0.8 % Neutrophils # (Auto) 3.64 K/uL Lymphocytes # (Auto) 1.82 K/uL Monocytes # (Auto) 0.53 K/uL Eosinophils # (Auto) 0.39 K/uL Basophils # (Auto) 0.05 K/uL RDW Standard Deviation 47.2 fL RDW Coefficient of Variation 13.8 % Immature Granulocyte % (Auto) 1.5 % Immature Granulocyte # (Auto) 0.10 K/uL Sodium Level 140 mmol/L Potassium Level 4.6 mmol/L Chloride Level 109 mmol/L Carbon Dioxide Level 20 mmol/L Anion Gap 11.0 mmol/L Blood Urea Nitrogen 68 mg/dl Creatinine 3.20 mg/dl Est Creatinine Clear Calc Drug Dose 28.6 ml/min Estimated GFR () 22.5 Estimated GFR (Non- 19.4 BUN/Creatinine Ratio 21.1 Random Glucose 162 mg/dl Calcium Level 8.4 mg/dl Test 11/09/16 08:30 Bedside Glucose 152 mg/dl Assessment & Plan [id number]-fet-oliguric. pacemaker working well. pt does not have renal artery stenosis per vascular doppler but not 100% sensitive. would like to try more aggressive hydration while monitoring volume status closely. on normal saline at 100cc/hr and albumin 12.5grams iv bid. if creatinine not significantly improving, would like to consider doing angiogram of the renal arteries to investigate possible renal artery stenosis. difficulty is that it requires contrast. 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 for now, hydrate aggressively and monitor for signs of volume overload. either way, would like to hydrate aggressively prior to contrast if we need to pursue the angiogram.
--- NOTE | 2016-11-09 11:25 | Pharmacy Progress Note ---
Glycemic Control: Progress Nt Date of Service Nov 09, 2016. Scope Glycemic Pharmacist consulted by Dr Moyer on 11/02/16 for glycemic control and to write orders per [facility] inpatient glycemic control protocol. Objective Accuchecks BSG (last 24hrs): Test 11/08/16 12:04 11/08/16 16:58 11/08/16 20:45 11/09/16 04:27 Bedside Glucose 252 mg/dl (70-99) 165 mg/dl (70-99) 178 mg/dl (70-99) Random Glucose 162 mg/dl (70-99) Test 11/09/16 08:30 Bedside Glucose 152 mg/dl (70-99) Laboratory Data (last 24hrs) Test 11/09/16 04:27 Anion Gap 11.0 mmol/L BUN/Creatinine Ratio 21.1 Blood Urea Nitrogen 68 mg/dl Creatinine 3.20 mg/dl Potassium Level 4.6 mmol/L Sodium Level 140 mmol/L White Blood Count 6.53 K/uL Red Blood Count 4.00 M/uL Hemoglobin 12.8 g/dL Hematocrit 37.2 % Mean Corpuscular Volume 93.0 fL Mean Corpuscular Hemoglobin 32.0 pg Mean Corpuscular Hemoglobin Concent 34.4 g/dl Platelet Count 213 K/uL Mean Platelet Volume 10.7 fL Neutrophils (%) (Auto) 55.7 % Lymphocytes (%) (Auto) 27.9 % Monocytes (%) (Auto) 8.1 % Eosinophils (%) (Auto) 6.0 % Basophils (%) (Auto) 0.8 % Neutrophils # (Auto) 3.64 K/uL Lymphocytes # (Auto) 1.82 K/uL Monocytes # (Auto) 0.53 K/uL Eosinophils # (Auto) 0.39 K/uL Basophils # (Auto) 0.05 K/uL HbA1c: Test 11/02/16 07:10 Hemoglobin A1c 7.8 % (4.5-5.6) H Recent Pertinent Medications Outpatient Anti-diabetic Regimen: * Glipizide 20mg PO daily * Metformin 1,000mg PO BID The patient is currently receiving: * Basal insulin: Lantus dosing based on BSG twice daily If BSG 110mg/dl or below --> Administer Lantus 12 units If BSG 111-180mg/dl --> Administer Lantus 18 units If BSG 181mg/dl or above --> Administer Lantus 20 units * Correctional Insulin: Novolog Correction per scale ACHS Goal Range: Low 110 mg/dL - High 150 mg/dL Correction Factor: 18 mg/dL/unit * Prandial insulin: Per carb ratio of 1 unit per 6 grams CHO consumed * Oral Agents: On hold for admission Risk Factors for Insulin Resistance: * Diet Risk Factors for Insulin Sensitivity: * Impaired renal function Assessment & Plan ASSESSMENT: * 66yo T2DM male with adequately controlled diabetes per recent A1c * Pt is maintained on oral agents as an outpatient. Oral agents are not recommended for inpatient use d/t difficulty titrating in acute situations, changes in PO intake, and drug interactions. Pt initiated on SQ basal bolus insulin regimen for inpatient use based on weight for an insulin naive patient. * Patient has been receiving ~ 80 units of insulin per day * BSGs ranging 152-252mg/dl over the past 24 hrs * AM fasting BSG is just slightly elevated this morning at 152mg/dl --> will not make any changes since half dose was given on 11/07/16 PM per parameters. Expect AM fasting BSG to continue to drop as Lantus re-approaches steady state. * Post-prandial BSGs only mildly elevated, will adjust high end of the goal range slightly for additional correctional insulin. * ADA & AACE recommend a goal blood sugar range 140-180 mg/dl for the majority of critically ill & non-critically ill patients. However, more stringent targets may be selected in individual cases. Will utilize more stringent target of 110-140mg/dl based on outpatient tight glycemic control. PLAN FOR INPATIENT GLYCEMIC CONTROL: * Hold outpatient oral diabetes medications * Basal insulin with LANTUS SQ BID (dosing based on BSG) * If BSG 110mg/dl or below --> Administer Lantus 12 units * If BSG 111-180mg/dl --> Administer Lantus 18 units * If BSG 181mg/dl or above --> Administer Lantus 20 units * Correctional Insulin with NOVOLOG per scale ACHS or Q6hrs while NPO * Goal Range: Low 110 mg/dL - High 140 mg/dL * Correction Factor: 18 mg/dL/unit * Nutritional / Prandial insulin per carb ratio of 1 unit per 6 grams CHO consumed * Please note that the plan above was derived based on current level of insulin resistance and hospital stress. These recommendations are appropriate for inpatient admission only. Plan of care upon discharge will need to be reassessed to avoid potential outpatient hypo/hyperglycemia. Thank you.
[2016-11-09] MEDS: SODIUM CHLORIDE 0.9% 1000ML 1,000 ML IV SCH ×2 (13:56→21:39)
[2016-11-09 16:40] VITALS: BP 160/78; PULSE 69; TEMP 36.6; O2SAT 98
[2016-11-09] MEDS: SODIUM CHLORIDE 0.65% NA SOLN 45 ML (OCEAN) SCH ×3 (20:00→22:00)
[2016-11-09 21:16] VITALS: BP 154/79; PULSE 76
[2016-11-09] MEDS: ALBUMIN HUMAN 25% 12.5 GM/50 ML VIAL IV SCH (21:41)
[2016-11-09] MEDS: OXYMETAZOLINE HCL 0.05% NA SPR 15 ML BTL SCH (21:43)
[2016-11-09 22:02] VITALS: BP 148/74; PULSE 67; TEMP 36.7; O2SAT 97
[2016-11-09 23:22] VITALS: BP 129/78; PULSE 69; TEMP 36.6; O2SAT 96
[2016-11-10] MEDS ORDERED: INSULIN ASPART 100 UNITS/ML 3 ML PEN SC SCH (02:00)
[2016-11-10] MEDS: OXYCODONE/ACETAMINOPHEN 10/325MG TAB PO SCH ×3 (06:15→21:48)
[2016-11-10] MEDS: SODIUM CHLORIDE 0.65% NA SOLN 45 ML (OCEAN) SCH ×17 (06:15→22:00)
[2016-11-10 07:35] VITALS: BP 145/84; PULSE 60; TEMP 36.3; O2SAT 97
[2016-11-10] MEDS: SODIUM CHLORIDE 0.9% 1000ML 1,000 ML IV SCH ×2 (07:47→18:54)
[2016-11-10 08:00] VITALS: O2SAT 97
[2016-11-10] MEDS: ALLOPURINOL 100 MG TAB PO SCH (08:25)
[2016-11-10] MEDS: ATORVASTATIN 20 MG TAB PO SCH (08:26)
[2016-11-10] MEDS: METOPROLOL SUCC 50MG EXT REL TAB PO SCH ×2 (08:26→22:14)
[2016-11-10] MEDS: AMLODIPINE BESYLATE 5 MG TAB PO SCH (08:26)
[2016-11-10] MEDS: CLONIDINE HCL 0.1 MG TAB PO PRN (08:26)
[2016-11-10] MEDS: HydrALAZINE 10 MG TAB PO SCH ×3 (08:26→22:14)
[2016-11-10] MEDS: FENOFIBRATE 145 MG TAB PO SCH (08:27)
[2016-11-10] MEDS: OXYMETAZOLINE HCL 0.05% NA SPR 15 ML BTL SCH ×2 (08:28→22:12)
[2016-11-10] MEDS: PREGABALIN 150 MG CAP PO SCH ×2 (08:31→21:48)
[2016-11-10] MEDS: INSULIN GLARGINE SOLOSTAR 100 UNITS/ML 3 ML PEN SC SCH ×2 (08:32→22:34)
[2016-11-10] MEDS: LORATADINE 10 MG TAB PO SCH (08:34)
[2016-11-10] MEDS: ALBUMIN HUMAN 25% 12.5 GM/50 ML VIAL IV SCH ×2 (08:34→22:06)
[2016-11-10] MEDS: INSULIN ASPART 100 UNITS/ML 3 ML PEN SC SCH ×4 (08:34→21:00)
[2016-11-10 08:35] LABS: HEMATOCRIT 37.1 % (42-52); MEAN CELL VOLUME 92.5 fL (80-100); MEAN CORPUSCULAR HEMOGLOBIN 31.4 pg (25-34); MEAN PLATELET VOLUME 10.5 fL (7.4-10.4); PLATELET COUNT 177 K/uL (130-400); RED BLOOD COUNT 4.01 M/uL (4.7-6.1); WHITE BLOOD COUNT 5.44 K/uL (4.8-10.8)
[2016-11-10] MEDS: FLUTICASONE/SALMETEROL 250/50 (ADVAIR) 14 PUFF/1 INHALER INH SCH ×2 (08:35→21:00)
[2016-11-10] MEDS: ALBUTEROL HFA 8 GM INHALER INH SCH ×4 (08:35→22:11)
[2016-11-10 09:04] LABS: BUN/CREATININE RATIO 20.8 (10-20); CALCIUM 8.3 mg/dl (8.5-10.1); CREATININE 2.5 mg/dl (0.60-1.40); POTASSIUM 4.1 mmol/L (3.5-5.1)
--- NOTE | 2016-11-10 10:19 | Pharmacy Progress Note ---
Glycemic Control: Progress Nt Date of Service Nov 10, 2016. Scope Glycemic Pharmacist consulted by Dr Moyer on 11/02/16 for glycemic control and to write orders per [facility] inpatient glycemic control protocol. Objective Accuchecks BSG (last 24hrs): Test 11/09/16 12:18 11/09/16 16:40 11/09/16 20:33 11/10/16 02:01 Bedside Glucose 321 mg/dl ate PB&J between BF & lunch w/o CHO coverage 267 mg/dl (70-99) 116 mg/dl (70-99) 184 mg/dl (70-99) Test 11/10/16 07:50 11/10/16 08:26 Bedside Glucose 117 mg/dl (70-99) Random Glucose 120 mg/dl (70-99) Laboratory Data (last 24hrs) Test 11/10/16 08:26 Anion Gap 10.0 mmol/L BUN/Creatinine Ratio 20.8 Blood Urea Nitrogen 52 mg/dl Creatinine 2.50 mg/dl Potassium Level 4.1 mmol/L Sodium Level 144 mmol/L White Blood Count 5.44 K/uL HbA1c: Test 11/02/16 07:10 Hemoglobin A1c 7.8 % (4.5-5.6) H Recent Pertinent Medications Outpatient Anti-diabetic Regimen: * Glipizide 20mg PO daily * Metformin 1,000mg PO BID The patient is currently receiving: * Basal insulin: Lantus dosing based on BSG twice daily If BSG 110mg/dl or below --> Administer Lantus 12 units If BSG 111-180mg/dl --> Administer Lantus 18 units If BSG 181mg/dl or above --> Administer Lantus 20 units * Correctional Insulin: Novolog Correction per scale ACHS Goal Range: Low 110 mg/dL - High 150 mg/dL Correction Factor: 18 mg/dL/unit * Prandial insulin: Per carb ratio of 1 unit per 6 grams CHO consumed * Oral Agents: On hold for admission Risk Factors for Insulin Resistance: * Diet Risk Factors for Insulin Sensitivity: * Impaired renal function/TYREL Assessment & Plan ASSESSMENT: * 66yo T2DM male with adequately controlled diabetes per recent A1c * Pt is maintained on oral agents as an outpatient. Oral agents are not recommended for inpatient use d/t difficulty titrating in acute situations, changes in PO intake, and drug interactions. Pt initiated on SQ basal bolus insulin regimen for inpatient use based on weight for an insulin naive patient. * Patient has been receiving ~ 80 units of insulin per day with adequate control * BSGs ranging 116-321mg/dl over the past 24 hrs [of note, 321mg/dl prior to lunch was d/t pt eating a PB&J between breakfast & lunch and CHO were NOT covered] * AM fasting BSG is in goal range this morning at 117mg/dl --> no changes needed * Post-prandial BSGs only mildly elevated, but this is due to omission of CHO coverage between meals and not the ordered parameters. No changes needed today. * ADA & AACE recommend a goal blood sugar range 140-180 mg/dl for the majority of critically ill & non-critically ill patients. However, more stringent targets may be selected in individual cases. Will utilize more stringent target of 110-140mg/dl based on outpatient tight glycemic control. PLAN FOR INPATIENT GLYCEMIC CONTROL: No changes needed to regimen at this time. Continue current orders. * Hold outpatient oral diabetes medications * Basal insulin with LANTUS SQ BID (dosing based on BSG) * If BSG 110mg/dl or below --> Administer Lantus 12 units * If BSG 111-180mg/dl --> Administer Lantus 18 units * If BSG 181mg/dl or above --> Administer Lantus 20 units * Correctional Insulin with NOVOLOG per scale ACHS or Q6hrs while NPO * Goal Range: Low 110 mg/dL - High 140 mg/dL * Correction Factor: 18 mg/dL/unit * Nutritional / Prandial insulin per carb ratio of 1 unit per 6 grams CHO consumed Looking ahead to discharge: * A1c is in goal range with current outpatient regimen, however, may not be reasonable to continue current outpatient regimen at discharge if renal function does not fully recover. Pt is maintained on glipizide + metformin which have renal dosing considerations. * Metformin: If CrCl does not improve to greater than 45ml/min do not recommend continuing Metformin at discharge. Alternate agent will need to be considered * Glipizide: No specific dose adjustments are needed, however, renal impairment can lead to significant long-standing hypoglycemia with sulfonylureas. * It is unfortunate because both of these agents are inexpensive and easy to take. However, depending on renal function at discharge these agents may not be safe for patient to continue on. * If Metformin + Glipizide are not continued at the time of discharge below are possible regimens * Insulin. May consider basal insulin + prandial insulin at a total daily dose of ~ 80 units/day. May consider: Lantus 36 units SQ daily + NovoLog 12 units SQ TIDM Premixed insulin Novolin 70/30 insulin ~ 50 units in the morning + 30 units in the evening with meals. * May consider the Sodium-Glucose Co-Transporter 2 (SGLT2) Inhibitor, Invokana [canagliflozin] 100mg PO daily {max} if eGRD persistently > 45ml/min * May consider TZD [Pioglitazone (Actos), Rosiglitizone (Avandia)] since no dosage adjustment is necessary with renal impairment, however, TZDs are not effective in long-standing diabetes * May consider DPP-IV [Sitagliptin (Januvia)] but would not be able to exceed 50mg PO daily if CrCL < 50 ml/min. Again, DPP-IV not effective in long standing diabetes * GLP-1 would be another consideration (Bydureon, Byetta, Saxenda, Tanzeum, Trulicity, Victoza, etc). No renal dosage adjustment is necessary. Howeverm these medications are expensive and are injectibles. If patient is willing to do injections, recommend SQ basal bolus insulin regimen vs SQ basal insulin + GLP-1. * Please note that the plan above was derived based on current level of insulin resistance and hospital stress. These recommendations are appropriate for inpatient admission only. Plan of care upon discharge will need to be reassessed to avoid potential outpatient hypo/hyperglycemia. Thank you.
--- NOTE | 2016-11-10 11:22 | Progress Note ---
Medicine Progress Note Date & Time of Visit: Nov 10, 2016 at 11:13. Subjective Pt was seen and examined Lying in bed comfortable with no distress Pt looks more awake today He is less mcpherson this morning He said that he feels like he eats more while he is in the hospital Pt said that he usually empty his ostomy bag about 15 times during the day Denies any episode of nose bleeding Denies any chest pain, palpitation, dizziness and sob Objective Last 8 Hrs Date Time Temp Pulse Resp B/P Pulse Ox O2 Delivery O2 Flow Rate FiO2 11/10/16 08:00 97 Room Air 11/10/16 07:35 36.3 60 16 145/84 97 Room Air Physical Exam: General- No respiratory distress Head- atraumatic Eyes- PERRL, EOMI ENT- no blood in nostril Neck- supple, no JVD Lungs- clear to auscultation and percussion Heart- no murmur Abdomen- normal bowel sounds, soft, +ostomy bag Extremities-no calf tenderness Neuro- alert, oriented x 3; PERRL Skin- warm & dry Laboratory Results: Last 24 Hours Test 11/09/16 12:18 11/09/16 16:40 11/09/16 20:33 11/10/16 02:01 Bedside Glucose 321 mg/dl 267 mg/dl 116 mg/dl 184 mg/dl Test 11/10/16 07:50 11/10/16 08:26 Bedside Glucose 117 mg/dl White Blood Count 5.44 K/uL Red Blood Count 4.01 M/uL Hemoglobin 12.6 g/dL Hematocrit 37.1 % Mean Corpuscular Volume 92.5 fL Mean Corpuscular Hemoglobin 31.4 pg Mean Corpuscular Hemoglobin Concent 34.0 g/dl RDW Standard Deviation 46.9 fL RDW Coefficient of Variation 13.8 % Platelet Count 177 K/uL Mean Platelet Volume 10.5 fL Sodium Level 144 mmol/L Potassium Level 4.1 mmol/L Chloride Level 114 mmol/L Carbon Dioxide Level 20 mmol/L Anion Gap 10.0 mmol/L Blood Urea Nitrogen 52 mg/dl Creatinine 2.50 mg/dl Est Creatinine Clear Calc Drug Dose 37.0 ml/min Estimated GFR () 30.3 Estimated GFR (Non- 26.2 BUN/Creatinine Ratio 20.8 Random Glucose 120 mg/dl Calcium Level 8.3 mg/dl Assessment & Plan ACUTE KIDNEY INJURY CKD III with baseline creatinine around 1.5. Creatinine on admission was 3.43, then trending to 2.9-->2.6-->2.7 -->2.5 --> 2.5 --> 2.7-->3.1--2.8--3.2--.2.5today TYREL may be due to volume depletion from combination of ileostomy output + diuretic therapy. FeNa was >2%,poss 'ATN from recent hospitalization Cont holding diuretic. Nephrology on board 11/10 Creatine improved today to 2.5 Diuretic has been held since the admission No nephrotoxic agents were given worsening kidney function may be related to increase ostomy output Continue monitor BMP closely Continue IVF will watch him for fluid overload, no signs of overload Possible consider a renal artery angiogram if creatine not return to baseline EPISTAXIS 2 recent episodes of severe epistaxis prior to transfer to [facility] Right nostril cauterized / packed in [facility]. Pulled on 11/03 and uneventful for past 24 hours Cont nasal saline and Afrin as instructed Hold aspirin-restart when OK with ENT (Dr. Victor Manuel Teixeira) Doxy to cover staph/strep species while nasal packing is in place and while we are hospitalized 11/06 One episode of epistaxis today Bleeding stopped after pressure applied Case discussed with Dr. Bentley that advised no need to pack it if bleeding stopped Dr. Bentley recommended If patient rebleeds, to pack the nose and transfer to [facility] to perform embolization. H/H stable 11/10 Another episode of epistaxis on 11/07 Pt said that he had an episode this yesterday around 4 am. But nurse only noted some blood bads on a tissue paper No active bleeding Dr. Bentley placed giuliana seal and surgicel today and he recommended to hold saline spray for 24-48 hrs, then resume If patient has another episode of epistaxis, will transfer to [facility] to perform embolization. D/C doxycline yesterday Resumed his nasal spray yesterday SHORTNESS OF BREATH: -Possible related to diastolic heart failure -recent treatment with Demedex caused ARF, so diuretics are on hold at this point -As Nephro agreed to continue holding diuretics at this time -CXR in am showed moderate stable cardiomegaly. No current evidence for congestive failure Stable ETOH USE [place] use of benzo as needed I reviewed his oupt chart, he was getting the valium at hs Pt said that he is been taking the valium TID, and he is been on it since 1973 He said that he usually got them from the street Continue valium 10mg to BID prn CORONARY ARTERY DISEASE atypical chest pain prior to admission s/p CABG in 2014 Holding aspirin due to epistaxis Continue metoprolol and amlodipine. Repeat EKG reveals paced rhythm with abnormalities PM interrogation 11/03 and demonstrates normal function with 4.5 years battery life remaining. PAF noted > 1 year ago. No recurrence. No anticoagulation indicated per Cards evaluation, however, needs to continue with q3 month PM checks Troponin is negative, however, with h/o atypical chest pain and history patient will need an outpatient stress test. Will advise him at discharge Asymptomatic BRADYCARDIA Pacemaker was interrogated again today that showed it functioned fine Low HR is due to the bigeminy and frequent ventricular ectopy case discussed with Dr. Rush that recommended not to hold the Beta russ Stable HYPERTENSION h/o FREIDA h/o stenting per EPIC records Continue metoprolol and amlodipine. Continue Toprol CL 50mg BID Will add Hydralazine 10 TID now Stable COPD Continue bronchodilators. DM TYPE 2 Hold oral agents due to acute illness / TYREL. Hgb A1C-7.8 (10/23/16) Continue insulin sliding scale Lantus / NovoLog per protocol. GOUT Continue allopurinol. CHRONIC PAIN Discussed with pt yesterday that I would not increase oxycodone to QID due to the decline in his kidney fx, Continue current management DEPRESSION/ANXIETY Pt refused psych consult VTE PROPHYLAXIS No anticoagulants due to epistaxis. SCD's. Ambulate. RESUSCITATION STATUS Full code. DISPOSITION Expected discharge to home once renal function improves to baseline 1.5. Medical follow-up with PCP, Dr. Stephenson. Consultants: ENT, Cards, Nephro Current Inpatient Medications: Current Inpatient Medications Medications (Trade) Dose Ordered Sig/All Route Start Time Stop Time Status Last Admin Dose Admin Acetaminophen (Tylenol Tab) 650 mg Q4H PRN PO 11/01/16 06:00 12/01/16 05:59 Glucose (Glucose 40% Gel) 15-30 GRAMS 15 GRAMS... UD PRN PO 11/01/16 09:15 12/01/16 09:14 Glucose (Glucose Chew Tab) 4-8 Tablets 4 Tabl... UD PRN PO 11/01/16 09:15 12/01/16 09:14 Dextrose (Dextrose 50% 50ML Syringe) 25-50ML OF 50% DW IV FOR... UD PRN IV 11/01/16 09:15 12/01/16 09:14 Glucagon (Glucagon Inj) 1 mg UD PRN SQ 11/01/16 09:15 12/01/16 09:14 Albuterol (Ventolin Hfa Inhaler) 2 puffs QID INH 11/01/16 12:00 12/01/16 11:59 11/09/16 13:57 2 PUFFS Amlodipine Besylate (Norvasc Tab) 10 mg DAILY PO 11/02/16 08:00 12/01/16 07:59 11/10/16 08:26 10 MG Atorvastatin Calcium (Lipitor Tab) 20 mg DAILY PO 11/02/16 08:00 12/01/16 07:59 11/10/16 08:26 20 MG Fenofibrate (Tricor Tab) 145 mg DAILY PO 11/02/16 08:00 12/01/16 07:59 11/10/16 08:27 145 MG Salmeterol Xinafoate/ Fluticasone (Advair Diskus 250/50 Inh) 1 puff BID INH 11/01/16 20:00 12/01/16 19:59 11/09/16 08:11 1 PUFF Loratadine (Claritin Tab) 10 mg DAILY PO 11/02/16 08:00 12/01/16 07:59 11/02/16 08:15 10 MG Pregabalin (Lyrica Cap) 300 mg BID PO 11/01/16 20:00 12/01/16 19:59 11/10/16 08:31 300 MG Allopurinol (Zyloprim Tab) 100 mg DAILY PO 11/02/16 08:00 12/02/16 07:59 11/10/16 08:25 100 MG Nitroglycerin (Nitrostat Tab) 0.4 mg PRN PRN SL 11/01/16 13:15 12/01/16 13:14 Clonidine HCl (Catapres Tab) 0.1 mg Q4H PRN PO 11/01/16 13:15 12/01/16 13:14 11/10/16 08:26 0.1 MG Insulin Aspart (novoLOG ASPART) SLIDING SCALE G... ACHS SC 11/01/16 22:00 12/01/16 21:59 11/10/16 08:34 4 UNITS Miscellaneous Information (Consult Glycemic Management Pharmacy) 1 ea UD N/A 11/02/16 09:41 12/02/16 09:40 Oxymetazoline HCl (Afrin 0.05% Nasal [place]) 2 sprays Q12 NA 11/03/16 09:00 12/03/16 08:59 Future hold 11/10/16 08:28 2 SPRAYS Metoprolol Succinate (Toprol Xl Tab) 50 mg BID PO 11/03/16 21:00 12/03/16 20:59 11/10/16 08:26 50 MG Sodium Chloride ([place] Nasal [place]) 1 sprays Q1HWA NA 11/03/16 15:00 12/03/16 14:59 Future hold 11/10/16 08:25 1 SPRAYS Hydralazine HCl (Apresoline Tab) 10 mg TID PO 11/04/16 21:00 12/04/16 20:59 11/10/16 08:26 10 MG Oxycodone/ Acetaminophen (Percocet 10-325MG Tab) 1 tab Q8H PO 11/07/16 06:00 11/21/16 05:59 11/10/16 06:15 1 TAB Insulin Glargine see protocol text BID SC 11/08/16 21:00 12/08/16 20:59 11/10/16 08:32 18 UNIT Sodium Chloride (Nss 1000ml) 1,000 ml @ 100 mls/hr Q10H IV 11/09/16 10:45 12/09/16 10:44 11/10/16 07:47 100 MLS/HR Albumin Human (Albumin 25%) 12.5 gm BID IV 11/09/16 21:00 11/12/16 20:59 11/10/16 08:34 12.5 GM Diazepam (Valium Tab) 10 mg Q12 PRN PO 11/09/16 21:00 12/09/16 20:59
--- NOTE | 2016-11-10 11:36 | Nephrology Progress Note ---
Nephrology Progress Note Date of Service: Nov 10, 2016. Subjective 66 yo male with blaze/atn of unclear etiology with presumed atn. pacemaker working well. pt eating and drinking well. does have ostomy with output. started on more aggressive iv fluids and albumin to help improve kidney function. tolerating the fluids well. pt also appears more awake today, i believe his pain meds may have been reduced yesterday which is good. continues to have intermittent nose bleeds. Objective Date Time Temp Pulse Resp B/P Pulse Ox O2 Delivery O2 Flow Rate FiO2 11/10/16 08:00 97 Room Air 11/10/16 07:35 36.3 60 16 145/84 97 Room Air 11/10/16 00:00 Room Air 11/09/16 23:22 36.6 69 16 129/78 96 Room Air 11/09/16 22:02 36.7 67 16 148/74 97 Room Air 11/09/16 21:16 76 154/79 11/09/16 16:40 36.6 69 18 160/78 98 Room Air 11/09/16 16:30 Room Air Physical Exam: General-aaox3 Eyes-no scleral icterus ENT-mmm Neck-supple Lungs-clear Heart-irregularly irregularly Abdomen-bs+ s/nt/nd Extremities-no c/c/e Neuro-nonfocal Current Inpatient Medications Medications (Trade) Dose Ordered Sig/All Route Start Time Stop Time Status Last Admin Dose Admin Acetaminophen (Tylenol Tab) 650 mg Q4H PRN PO 11/01/16 06:00 12/01/16 05:59 Glucose (Glucose 40% Gel) 15-30 GRAMS 15 GRAMS... UD PRN PO 11/01/16 09:15 12/01/16 09:14 Glucose (Glucose Chew Tab) 4-8 Tablets 4 Tabl... UD PRN PO 11/01/16 09:15 12/01/16 09:14 Dextrose (Dextrose 50% 50ML Syringe) 25-50ML OF 50% DW IV FOR... UD PRN IV 11/01/16 09:15 12/01/16 09:14 Glucagon (Glucagon Inj) 1 mg UD PRN SQ 11/01/16 09:15 12/01/16 09:14 Albuterol (Ventolin Hfa Inhaler) 2 puffs QID INH 11/01/16 12:00 12/01/16 11:59 11/09/16 13:57 2 PUFFS Amlodipine Besylate (Norvasc Tab) 10 mg DAILY PO 11/02/16 08:00 12/01/16 07:59 11/10/16 08:26 10 MG Atorvastatin Calcium (Lipitor Tab) 20 mg DAILY PO 11/02/16 08:00 12/01/16 07:59 11/10/16 08:26 20 MG Fenofibrate (Tricor Tab) 145 mg DAILY PO 11/02/16 08:00 12/01/16 07:59 11/10/16 08:27 145 MG Salmeterol Xinafoate/ Fluticasone (Advair Diskus 250/50 Inh) 1 puff BID INH 11/01/16 20:00 12/01/16 19:59 11/09/16 08:11 1 PUFF Loratadine (Claritin Tab) 10 mg DAILY PO 11/02/16 08:00 12/01/16 07:59 11/02/16 08:15 10 MG Pregabalin (Lyrica Cap) 300 mg BID PO 11/01/16 20:00 12/01/16 19:59 11/10/16 08:31 300 MG Allopurinol (Zyloprim Tab) 100 mg DAILY PO 11/02/16 08:00 12/02/16 07:59 11/10/16 08:25 100 MG Nitroglycerin (Nitrostat Tab) 0.4 mg PRN PRN SL 11/01/16 13:15 12/01/16 13:14 Clonidine HCl (Catapres Tab) 0.1 mg Q4H PRN PO 11/01/16 13:15 12/01/16 13:14 11/10/16 08:26 0.1 MG Insulin Aspart (novoLOG ASPART) SLIDING SCALE G... ACHS SC 11/01/16 22:00 12/01/16 21:59 11/10/16 08:34 4 UNITS Miscellaneous Information (Consult Glycemic Management Pharmacy) 1 ea UD N/A 11/02/16 09:41 12/02/16 09:40 Oxymetazoline HCl (Afrin 0.05% Nasal [place]) 2 sprays Q12 NA 11/03/16 09:00 12/03/16 08:59 Future hold 2/5/17 08:28 2 SPRAYS Metoprolol Succinate (Toprol Xl Tab) 50 mg BID PO 11/03/16 21:00 12/03/16 20:59 11/10/16 08:26 50 MG Sodium Chloride ([place] Nasal [place]) 1 sprays Q1HWA NA 11/03/16 15:00 12/03/16 14:59 Future hold 11/10/16 08:25 1 SPRAYS Hydralazine HCl (Apresoline Tab) 10 mg TID PO 11/04/16 21:00 12/04/16 20:59 11/10/16 08:26 10 MG Oxycodone/ Acetaminophen (Percocet 10-325MG Tab) 1 tab Q8H PO 11/07/16 06:00 11/21/16 05:59 11/10/16 06:15 1 TAB Insulin Glargine see protocol text BID SC 11/08/16 21:00 12/08/16 20:59 11/10/16 08:32 18 UNIT Sodium Chloride (Nss 1000ml) 1,000 ml @ 100 mls/hr Q10H IV 11/09/16 10:45 12/09/16 10:44 11/10/16 07:47 100 MLS/HR Albumin Human (Albumin 25%) 12.5 gm BID IV 11/09/16 21:00 11/12/16 20:59 11/10/16 08:34 12.5 GM Diazepam (Valium Tab) 10 mg Q12 PRN PO 11/09/16 21:00 12/09/16 20:59 Last 24 Hours Test 11/09/16 12:18 11/09/16 16:40 11/09/16 20:33 11/10/16 02:01 Bedside Glucose 321 mg/dl 267 mg/dl 116 mg/dl 184 mg/dl Test 11/10/16 07:50 11/10/16 08:26 Bedside Glucose 117 mg/dl White Blood Count 5.44 K/uL Red Blood Count 4.01 M/uL Hemoglobin 12.6 g/dL Hematocrit 37.1 % Mean Corpuscular Volume 92.5 fL Mean Corpuscular Hemoglobin 31.4 pg Mean Corpuscular Hemoglobin Concent 34.0 g/dl RDW Standard Deviation 46.9 fL RDW Coefficient of Variation 13.8 % Platelet Count 177 K/uL Mean Platelet Volume 10.5 fL Sodium Level 144 mmol/L Potassium Level 4.1 mmol/L Chloride Level 114 mmol/L Carbon Dioxide Level 20 mmol/L Anion Gap 10.0 mmol/L Blood Urea Nitrogen 52 mg/dl Creatinine 2.50 mg/dl Est Creatinine Clear Calc Drug Dose 37.0 ml/min Estimated GFR () 30.3 Estimated GFR (Non- 26.2 BUN/Creatinine Ratio 20.8 Random Glucose 120 mg/dl Calcium Level 8.3 mg/dl Assessment & Plan [id number]. pacemaker working well. for now, continue iv fluids and albumin and hope creatinine continues to improve. has varied quite a bit while in the hospital. was considering doing an angiogram with vascular surgery but if creatinine continues to improve with fluids, would hold off on doing procedure with risk of contrast induced nephrotoxicity. continue fluids monitoring for signs of volume overload. no changes made today.
[2016-11-10 15:35] VITALS: BP 143/84; PULSE 63; TEMP 36.3; O2SAT 98
[2016-11-10 21:52] VITALS: BP 154/76; PULSE 60; TEMP 36.5; O2SAT 96
[2016-11-10 23:06] VITALS: BP 146/85; PULSE 60; TEMP 36.5; O2SAT 96
[2016-11-11] VITALS (11 sets, daily range): BP systolic 124–176; BP diastolic 74–107; PULSE 58–69; TEMP 36.4–36.7; O2SAT 94–98
[2016-11-11] MEDS: SODIUM CHLORIDE 0.9% 1000ML 1,000 ML IV SCH ×3 (02:16→21:46)
[2016-11-11] MEDS: SODIUM CHLORIDE 0.65% NA SOLN 45 ML (OCEAN) SCH ×18 (05:50→21:45)
[2016-11-11 06:00] LABS: BUN/CREATININE RATIO 17.9 (10-20); CALCIUM 8.1 mg/dl (8.5-10.1); CREATININE 2.7 mg/dl (0.60-1.40); POTASSIUM 4.5 mmol/L (3.5-5.1)
[2016-11-11] MEDS: OXYCODONE/ACETAMINOPHEN 10/325MG TAB PO SCH ×3 (06:12→21:34)
--- NOTE | 2016-11-11 06:23 | Nephrology Progress Note ---
Nephrology Progress Note Date of Service: Nov 11, 2016. Subjective 66 yo male with blaze/atn of unclear etiology with presumed atn. pacemaker working well. pt eating and drinking well. does have ostomy with output. pt doing well this am. in pleasant mood. no overt sob. Objective Date Time Temp Pulse Resp B/P Pulse Ox O2 Delivery O2 Flow Rate FiO2 11/10/16 23:25 Room Air 11/10/16 23:06 36.5 60 16 146/85 96 Room Air 11/10/16 21:52 36.5 60 16 154/76 96 Room Air 11/10/16 15:40 Room Air 11/10/16 15:35 36.3 63 18 143/84 98 Room Air 11/10/16 08:00 97 Room Air 11/10/16 07:35 36.3 60 16 145/84 97 Room Air Physical Exam: General-aaox3 Eyes-no scleral icterus ENT-mmm Neck-supple Lungs-very slight end expiratory wheeze Heart-irregularly irregularly Abdomen-bs+ s/nt/nd Extremities-no c/c/e Neuro-nonfocal Current Inpatient Medications Medications (Trade) Dose Ordered Sig/All Route Start Time Stop Time Status Last Admin Dose Admin Acetaminophen (Tylenol Tab) 650 mg Q4H PRN PO 11/01/16 06:00 12/01/16 05:59 Glucose (Glucose 40% Gel) 15-30 GRAMS 15 GRAMS... UD PRN PO 11/01/16 09:15 12/01/16 09:14 Glucose (Glucose Chew Tab) 4-8 Tablets 4 Tabl... UD PRN PO 11/01/16 09:15 12/01/16 09:14 Dextrose (Dextrose 50% 50ML Syringe) 25-50ML OF 50% DW IV FOR... UD PRN IV 11/01/16 09:15 12/01/16 09:14 Glucagon (Glucagon Inj) 1 mg UD PRN SQ 11/01/16 09:15 12/01/16 09:14 Albuterol (Ventolin Hfa Inhaler) 2 puffs QID INH 11/01/16 12:00 12/01/16 11:59 11/10/16 22:11 2 PUFFS Amlodipine Besylate (Norvasc Tab) 10 mg DAILY PO 11/02/16 08:00 12/01/16 07:59 11/10/16 08:26 10 MG Atorvastatin Calcium (Lipitor Tab) 20 mg DAILY PO 11/02/16 08:00 12/01/16 07:59 11/10/16 08:26 20 MG Fenofibrate (Tricor Tab) 145 mg DAILY PO 11/02/16 08:00 12/01/16 07:59 11/10/16 08:27 145 MG Salmeterol Xinafoate/ Fluticasone (Advair Diskus 250/50 Inh) 1 puff BID INH 11/01/16 20:00 12/01/16 19:59 11/09/16 08:11 1 PUFF Loratadine (Claritin Tab) 10 mg DAILY PO 11/02/16 08:00 12/01/16 07:59 11/02/16 08:15 10 MG Pregabalin (Lyrica Cap) 300 mg BID PO 11/01/16 20:00 12/01/16 19:59 11/10/16 21:48 300 MG Allopurinol (Zyloprim Tab) 100 mg DAILY PO 11/02/16 08:00 12/02/16 07:59 11/10/16 08:25 100 MG Nitroglycerin (Nitrostat Tab) 0.4 mg PRN PRN SL 11/01/16 13:15 12/01/16 13:14 Clonidine HCl (Catapres Tab) 0.1 mg Q4H PRN PO 11/01/16 13:15 12/01/16 13:14 11/10/16 08:26 0.1 MG Insulin Aspart (novoLOG ASPART) SLIDING SCALE G... ACHS SC 11/01/16 22:00 12/01/16 21:59 11/10/16 19:07 10 UNITS Miscellaneous Information (Consult Glycemic Management Pharmacy) 1 ea UD N/A 11/02/16 09:41 12/02/16 09:40 Oxymetazoline HCl (Afrin 0.05% Nasal [place]) 2 sprays Q12 NA 11/03/16 09:00 12/03/16 08:59 Future hold 11/10/16 22:12 2 SPRAYS Metoprolol Succinate (Toprol Xl Tab) 50 mg BID PO 11/03/16 21:00 12/03/16 20:59 11/10/16 22:14 50 MG Sodium Chloride ([place] Nasal [place]) 1 sprays Q1HWA NA 11/03/16 15:00 12/03/16 14:59 Future hold 11/10/16 18:54 1 SPRAYS Hydralazine HCl (Apresoline Tab) 10 mg TID PO 11/04/16 21:00 12/04/16 20:59 11/10/16 22:14 10 MG Oxycodone/ Acetaminophen (Percocet 10-325MG Tab) 1 tab Q8H PO 11/07/16 06:00 11/21/16 05:59 11/11/16 06:12 1 TAB Insulin Glargine see protocol text BID SC 11/08/16 21:00 12/08/16 20:59 11/10/16 22:34 18 UNIT Sodium Chloride (Nss 1000ml) 1,000 ml @ 100 mls/hr Q10H IV 11/09/16 10:45 12/09/16 10:44 11/11/16 02:16 100 MLS/HR Albumin Human (Albumin 25%) 12.5 gm BID IV 11/09/16 21:00 11/12/16 20:59 11/10/16 22:06 12.5 GM Diazepam (Valium Tab) 10 mg Q12 PRN PO 11/09/16 21:00 12/09/16 20:59 Last 24 Hours Test 11/10/16 07:50 11/10/16 08:26 11/10/16 11:58 11/10/16 16:44 Bedside Glucose 117 mg/dl 155 mg/dl 180 mg/dl White Blood Count 5.44 K/uL Red Blood Count 4.01 M/uL Hemoglobin 12.6 g/dL Hematocrit 37.1 % Mean Corpuscular Volume 92.5 fL Mean Corpuscular Hemoglobin 31.4 pg Mean Corpuscular Hemoglobin Concent 34.0 g/dl RDW Standard Deviation 46.9 fL RDW Coefficient of Variation 13.8 % Platelet Count 177 K/uL Mean Platelet Volume 10.5 fL Sodium Level 144 mmol/L Potassium Level 4.1 mmol/L Chloride Level 114 mmol/L Carbon Dioxide Level 20 mmol/L Anion Gap 10.0 mmol/L Blood Urea Nitrogen 52 mg/dl Creatinine 2.50 mg/dl Est Creatinine Clear Calc Drug Dose 37.0 ml/min Estimated GFR () 30.3 Estimated GFR (Non- 26.2 BUN/Creatinine Ratio 20.8 Random Glucose 120 mg/dl Calcium Level 8.3 mg/dl Test 11/10/16 20:26 11/11/16 05:00 Bedside Glucose 137 mg/dl Sodium Level 143 mmol/L Potassium Level 4.5 mmol/L Chloride Level 111 mmol/L Carbon Dioxide Level 22 mmol/L Anion Gap 10.0 mmol/L Blood Urea Nitrogen 48 mg/dl Creatinine 2.70 mg/dl Est Creatinine Clear Calc Drug Dose 33.9 ml/min Estimated GFR () 27.6 Estimated GFR (Non- 23.8 BUN/Creatinine Ratio 17.9 Random Glucose 194 mg/dl Calcium Level 8.1 mg/dl Assessment & Plan [id number]-oliguric. pacemaker working well. labs pending for this am, hopefully creatinine continues to improve with the volume resuscitation. angiogram on hold for now and hoping to avoid the procedure if possible secondary to the contrast load. does have very slight end expiratory wheeze but overall tolerating the volume well. continue current rate of fluids.
[2016-11-11] MEDS: HydrALAZINE 10 MG TAB PO SCH ×3 (08:05→21:03)
[2016-11-11] MEDS: AMLODIPINE BESYLATE 5 MG TAB PO SCH (08:06)
[2016-11-11] MEDS: METOPROLOL SUCC 50MG EXT REL TAB PO SCH ×2 (08:07→21:03)
[2016-11-11] MEDS: DIAZEPAM 5MG TAB PO PRN ×2 (08:21→23:24)
[2016-11-11] MEDS: FLUTICASONE/SALMETEROL 250/50 (ADVAIR) 14 PUFF/1 INHALER INH SCH ×2 (09:00→21:00)
[2016-11-11] MEDS: LORATADINE 10 MG TAB PO SCH (09:00)
[2016-11-11] MEDS: OXYMETAZOLINE HCL 0.05% NA SPR 15 ML BTL SCH ×4 (09:00→23:26)
[2016-11-11] MEDS: ALBUTEROL HFA 8 GM INHALER INH SCH ×4 (09:00→21:00)
[2016-11-11] MEDS: INSULIN ASPART 100 UNITS/ML 3 ML PEN SC SCH ×4 (09:37→21:42)
[2016-11-11] MEDS: INSULIN GLARGINE SOLOSTAR 100 UNITS/ML 3 ML PEN SC SCH ×2 (09:39→21:41)
[2016-11-11] MEDS: ALBUMIN HUMAN 25% 12.5 GM/50 ML VIAL IV SCH ×2 (09:52→21:05)
[2016-11-11] MEDS: CLONIDINE HCL 0.1 MG TAB PO PRN ×2 (11:25→22:43)
--- NOTE | 2016-11-11 12:56 | Progress Note ---
Medicine Progress Note Date & Time of Visit: Nov 11, 2016 at 12:43. Subjective Pt was seen and examined Lying in bed comfortable with eyes closed upon calling his name he said that he is having a lot of pain Pt got upset easily when nurse told him that he is not due yet for his narcotic or valium He sometimes asks for extra pain med sometimes every 2 hrs He always looks drowsy most of the times i see him He refused to see pain management He said that he can get the pain med on the street He has not had any episode of epistaxis for the last 3 days He denies any chest pain, palpitation, dizziness and sob Objective Last 8 Hrs Date Time Temp Pulse Resp B/P Pulse Ox O2 Delivery O2 Flow Rate FiO2 11/11/16 11:16 36.7 60 18 164/99 95 Room Air 11/11/16 09:50 36.5 60 12 124/74 11/11/16 09:12 94 Room Air 11/11/16 08:12 36.4 59 18 172/97 94 Room Air 11/11/16 07:10 Room Air Physical Exam: General- No respiratory distress, irritated Head- atraumatic Eyes- PERRL, EOMI ENT- no blood in nostril Neck- supple, no JVD Lungs- clear to auscultation and percussion Heart- no murmur Abdomen- normal bowel sounds, soft, +ostomy bag Extremities-no calf tenderness Neuro- alert, oriented x 3; PERRL Skin- warm & dry Laboratory Results: Last 24 Hours Test 11/10/16 16:44 11/10/16 20:26 11/11/16 05:00 11/11/16 08:05 Bedside Glucose 180 mg/dl 137 mg/dl 144 mg/dl Sodium Level 143 mmol/L Potassium Level 4.5 mmol/L Chloride Level 111 mmol/L Carbon Dioxide Level 22 mmol/L Anion Gap 10.0 mmol/L Blood Urea Nitrogen 48 mg/dl Creatinine 2.70 mg/dl Est Creatinine Clear Calc Drug Dose 33.9 ml/min Estimated GFR () 27.6 Estimated GFR (Non- 23.8 BUN/Creatinine Ratio 17.9 Random Glucose 194 mg/dl Calcium Level 8.1 mg/dl Test 11/11/16 12:04 Bedside Glucose 154 mg/dl Assessment & Plan ACUTE KIDNEY INJURY CKD III with baseline creatinine around 1.5. Creatinine on admission was 3.43, then trending to 2.9-->2.6-->2.7 -->2.5 --> 2.5 --> 2.7-->3.1--2.8--3.2--.2.5-->2.7 today TYREL may be due to volume depletion from combination of ileostomy output + diuretic therapy. FeNa was >2%,poss 'ATN from recent hospitalization Cont holding diuretic. Nephrology on board 11/11 Creatine increased from 2.5 to 2.7 Diuretic has been held since the admission No nephrotoxic agents were given worsening kidney function may be related to increase ostomy output Maybe this is his new creatine baseline Continue monitor BMP closely Continue IVF will watch him for fluid overload, no signs of overload Case discussed with Dr. Washington Possible consider a renal artery angiogram if creatine does not improve tomorrow. EPISTAXIS 2 recent episodes of severe epistaxis prior to transfer to [facility] Right nostril cauterized / packed in [place] ED. Pulled on 11/03 and uneventful for past 24 hours Cont nasal saline and Afrin as instructed Hold aspirin-restart when OK with ENT (Dr. Victor Manuel Teixeira) Doxy to cover staph/strep species while nasal packing is in place and while we are hospitalized 11/06 One episode of epistaxis today Bleeding stopped after pressure applied Case discussed with Dr. Bentley that advised no need to pack it if bleeding stopped Dr. Bentley recommended If patient rebleeds, to pack the nose and transfer to [place] to perform embolization. H/H stable 11/11 Another episode of epistaxis on 11/07 Pt said that he had an episode on 11/09 around 4 am. But nurse only noted some blood bads on a tissue paper No active bleeding Dr. Bentley placed giuliana seal and surgicel today and he recommended to hold saline spray for 24-48 hrs, then resume If patient has another episode of epistaxis, will transfer to [place] to perform embolization. D/C doxycline on 11/09 Continue his nasal spray continue monitor closely 11/11 late afternoon Pt had 2 more episodes of epistaxis that stopped after applying pressure. He stable at this time. Case discussed with Dr. Gupta that recommended to use Afrin sprays in the affected nostril after each episode of epistaxis use humidified oxygen. Also pt needs to transfer for embolization. Dr. Gupta said that if the bleeding does not stop to notify him as soon as possible. Pt will be transfer to [facility] under the medicine service Accepted hospitalist physician is Dr. Baltazar SHORTNESS OF BREATH: -Possible related to diastolic heart failure -recent treatment with Demedex caused ARF, so diuretics are on hold at this point -As Nephro agreed to continue holding diuretics at this time -CXR in am showed moderate stable cardiomegaly. No current evidence for congestive failure Stable ETOH USE [place] use of benzo as needed I reviewed his oupt chart, he was getting the valium at hs Pt said that he is been taking the valium TID, and he is been on it since 1973 He said that he usually got them from the street Continue valium 10mg to BID prn CORONARY ARTERY DISEASE atypical chest pain prior to admission s/p CABG in 2014 Holding aspirin due to epistaxis Continue metoprolol and amlodipine. Repeat EKG reveals paced rhythm with abnormalities PM interrogation 11/03 and demonstrates normal function with 4.5 years battery life remaining. PAF noted > 1 year ago. No recurrence. No anticoagulation indicated per Cards evaluation, however, needs to continue with q3 month PM checks Troponin is negative, however, with h/o atypical chest pain and history patient will need an outpatient stress test. Will advise him at discharge Asymptomatic BRADYCARDIA Pacemaker was interrogated again today that showed it functioned fine Low HR is due to the bigeminy and frequent ventricular ectopy case discussed with Dr. Rush that recommended not to hold the Beta russ Stable HYPERTENSION h/o FREIDA h/o stenting per EPIC records Continue metoprolol and amlodipine. Continue Toprol CL 50mg BID Will add Hydralazine 10 TID now Stable COPD Continue bronchodilators. DM TYPE 2 Hold oral agents due to acute illness / TYREL. Hgb A1C-7.8 (10/23/16) Continue insulin sliding scale Lantus / NovoLog per protocol. GOUT Continue allopurinol. CHRONIC PAIN Discussed with pt yesterday that I would not increase oxycodone to QID due to the decline in his kidney fx, Continue current management DEPRESSION/ANXIETY Pt refused psych consult VTE PROPHYLAXIS No anticoagulants due to epistaxis. SCD's. Ambulate. RESUSCITATION STATUS Full code. DISPOSITION Expected discharge to home once renal function improves to baseline 1.5. Medical follow-up with PCP, Dr. Stephenson. Consultants: ENT, Cards, Nephro Current Inpatient Medications: Current Inpatient Medications Medications (Trade) Dose Ordered Sig/All Route Start Time Stop Time Status Last Admin Dose Admin Acetaminophen (Tylenol Tab) 650 mg Q4H PRN PO 11/01/16 06:00 12/01/16 05:59 Glucose (Glucose 40% Gel) 15-30 GRAMS 15 GRAMS... UD PRN PO 11/01/16 09:15 12/01/16 09:14 Glucose (Glucose Chew Tab) 4-8 Tablets 4 Tabl... UD PRN PO 11/01/16 09:15 12/01/16 09:14 Dextrose (Dextrose 50% 50ML Syringe) 25-50ML OF 50% DW IV FOR... UD PRN IV 11/01/16 09:15 12/01/16 09:14 Glucagon (Glucagon Inj) 1 mg UD PRN SQ 11/01/16 09:15 12/01/16 09:14 Albuterol (Ventolin Hfa Inhaler) 2 puffs QID INH 11/01/16 12:00 12/01/16 11:59 11/10/16 22:11 2 PUFFS Amlodipine Besylate (Norvasc Tab) 10 mg DAILY PO 11/02/16 08:00 12/01/16 07:59 11/11/16 08:06 10 MG Atorvastatin Calcium (Lipitor Tab) 20 mg DAILY PO 11/02/16 08:00 12/01/16 07:59 11/10/16 08:26 20 MG Fenofibrate (Tricor Tab) 145 mg DAILY PO 11/02/16 08:00 12/01/16 07:59 11/10/16 08:27 145 MG Salmeterol Xinafoate/ Fluticasone (Advair Diskus 250/50 Inh) 1 puff BID INH 11/01/16 20:00 12/01/16 19:59 11/09/16 08:11 1 PUFF Loratadine (Claritin Tab) 10 mg DAILY PO 11/02/16 08:00 12/01/16 07:59 11/02/16 08:15 10 MG Pregabalin (Lyrica Cap) 300 mg BID PO 11/01/16 20:00 12/01/16 19:59 11/10/16 21:48 300 MG Allopurinol (Zyloprim Tab) 100 mg DAILY PO 11/02/16 08:00 12/02/16 07:59 11/10/16 08:25 100 MG Nitroglycerin (Nitrostat Tab) 0.4 mg PRN PRN SL 11/01/16 13:15 12/01/16 13:14 Clonidine HCl (Catapres Tab) 0.1 mg Q4H PRN PO 11/01/16 13:15 12/01/16 13:14 11/11/16 11:25 0.1 MG Insulin Aspart (novoLOG ASPART) SLIDING SCALE G... ACHS SC 11/01/16 22:00 12/01/16 21:59 11/11/16 09:37 9 UNITS Oxymetazoline HCl (Afrin 0.05% Nasal [place]) 2 sprays Q12 NA 11/03/16 09:00 12/03/16 08:59 Future hold 11/10/16 22:12 2 SPRAYS Metoprolol Succinate (Toprol Xl Tab) 50 mg BID PO 11/03/16 21:00 12/03/16 20:59 11/11/16 08:07 50 MG Sodium Chloride ([place] Nasal [place]) 1 sprays Q1HWA NA 11/03/16 15:00 12/03/16 14:59 Future hold 11/11/16 07:11 1 SPRAYS Hydralazine HCl (Apresoline Tab) 10 mg TID PO 11/04/16 21:00 12/04/16 20:59 11/11/16 08:05 10 MG Oxycodone/ Acetaminophen (Percocet 10-325MG Tab) 1 tab Q8H PO 11/07/16 06:00 11/21/16 05:59 11/11/16 06:12 1 TAB Insulin Glargine see protocol text BID SC 11/08/16 21:00 12/08/16 20:59 11/11/16 09:39 18 UNIT Sodium Chloride (Nss 1000ml) 1,000 ml @ 100 mls/hr Q10H IV 11/09/16 10:45 12/09/16 10:44 11/11/16 02:16 100 MLS/HR Albumin Human (Albumin 25%) 12.5 gm BID IV 11/09/16 21:00 11/12/16 20:59 11/11/16 09:52 12.5 GM Diazepam (Valium Tab) 10 mg Q12 PRN PO 11/09/16 21:00 12/09/16 20:59 11/11/16 08:21 10 MG
[2016-11-11] MEDS: ATORVASTATIN 20 MG TAB PO SCH (13:41)
[2016-11-11] MEDS: PREGABALIN 150 MG CAP PO SCH ×2 (13:41→21:03)
[2016-11-11] MEDS: FENOFIBRATE 145 MG TAB PO SCH (13:42)
[2016-11-11] MEDS: ALLOPURINOL 100 MG TAB PO SCH (13:43)
[2016-11-11] MEDS ORDERED: NURSING VERBAL MED ORDER ONE (17:15)
--- NOTE | 2016-11-11 21:44 | Discharge Summary ---
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 Jack Biggs in [place]. History of ischemic heart disease, hypertension, DM, CKD III, and other problems noted below. Status post total colectomy for C difficile colitis with chronic high-volume stool output via ileostomy. Hospitalized at [facility] 1-2 weeks ago. Presented to ED with epistaxis and was admitted for several days. Patient unable to provide details of hospital stay. Presented to ED at [facility] last evening with recurrent epistaxis. Right nostril cauterized and packed. Labs revealed elevated serum creatinine of 3.43, significantly higher than his baseline. Patient was transferred to [facility] for further evaluation and management of his acute kidney injury. Status post total colectomy for C difficile colitis with chronic high-volume stool output via ileostomy. Patient states that he has been advised to drink at least 60 oz of fluids per day, but he has trouble keeping up with the recommended amount. Apparently started on torsemide when he was discharged from the hospital last week. Labs reviewed from [facility]. Baseline creatinine appears to run 1.3 - 1.7. Pt does not use any NSAID's, SAMMY inhibitors, ARB's. . Physical Exam (per Admitting): General Appearance: WD/WN, no apparent distress Head: normocephalic, atraumatic Eyes: normal inspection, PERRL, EOMI, sclerae normal ENT: normal ENT inspection, hearing grossly normal, pharynx normal, + pertinent finding (edentulous; right nostril packed) Neck: supple, no adenopathy, thyroid normal, no JVD, trachea midline Respiratory/Chest: no respiratory distress, no accessory muscle use, + pertinent finding (diffuse mild wheezing) Cardiovascular: regular rate, rhythm, no gallop, no JVD, no murmur, + pertinent finding (trace pretibial edema) Abdomen/GI: normal bowel sounds, non tender, soft, no organomegaly Extremities/Musculoskelatal: normal inspection, no calf tenderness Neurologic/Psych: [employer] employee II-XII nml as tested (PERRL, EOMI, no facial palsy), no motor/sensory deficits (grossly intact), alert, oriented x 3, + depressed affect Skin: normal color, warm/dry, no rash Lymphatic: no adenopathy Hospital Course ACUTE KIDNEY INJURY CKD III with baseline creatinine around 1.5. Creatinine on admission was 3.43, then trending to 2.9-->2.6-->2.7 -->2.5 --> 2.5 --> 2.7-->3.1--2.8--3.2--.2.5-->2.7 today TYREL may be due to volume depletion from combination of ileostomy output + diuretic therapy. FeNa was >2%,poss 'ATN from recent hospitalization Cont holding diuretic. Nephrology on board 11/11 Creatine increased from 2.5 to 2.7 Diuretic has been held since the admission No nephrotoxic agents were given worsening kidney function may be related to increase ostomy output Maybe this is his new creatine baseline Continue monitor BMP closely Continue IVF will watch him for fluid overload, no signs of overload Case discussed with Dr. Washington Possible consider a renal artery angiogram if creatine does not improve tomorrow. EPISTAXIS 2 recent episodes of severe epistaxis prior to transfer to [facility] Right nostril cauterized / packed in [place] ED. Pulled on 11/03 and uneventful for past 24 hours Cont nasal saline and Afrin as instructed Hold aspirin-restart when OK with ENT (Dr. Victor Manuel Teixeira) Doxy to cover staph/strep species while nasal packing is in place and while we are hospitalized 11/06 One episode of epistaxis today Bleeding stopped after pressure applied Case discussed with Dr. Bentley that advised no need to pack it if bleeding stopped Dr. Bentley recommended If patient rebleeds, to pack the nose and transfer to [place] to perform embolization. H/H stable 11/11 Another episode of epistaxis on 11/07 Pt said that he had an episode on 11/09 around 4 am. But nurse only noted some blood bads on a tissue paper No active bleeding Dr. Bentley placed giuliana seal and surgicel today and he recommended to hold saline spray for 24-48 hrs, then resume If patient has another episode of epistaxis, will transfer to [place] to perform embolization. D/C doxycline on 11/09 Continue his nasal spray continue monitor closely 11/11 late afternoon Pt had 2 more episodes of epistaxis that stopped after applying pressure. He stable at this time. Case discussed with Dr. Gupta that recommended to use Afrin sprays in the affected nostril after each episode of epistaxis use humidified oxygen. Also pt needs to transfer for embolization. Dr. Gupta said that if the bleeding does not stop to notify him as soon as possible. Pt will be transfer to [facility] under the medicine service Accepted hospitalist physician is Dr. Baltazar SHORTNESS OF BREATH: -Possible related to diastolic heart failure -recent treatment with Demedex caused ARF, so diuretics are on hold at this point -As Nephro agreed to continue holding diuretics at this time -CXR in am showed moderate stable cardiomegaly. No current evidence for congestive failure Stable ETOH USE [place] use of benzo as needed I reviewed his oupt chart, he was getting the valium at hs Pt said that he is been taking the valium TID, and he is been on it since 1973 He said that he usually got them from the street Continue valium 10mg to BID prn CORONARY ARTERY DISEASE atypical chest pain prior to admission s/p CABG in 2014 Holding aspirin due to epistaxis Continue metoprolol and amlodipine. Repeat EKG reveals paced rhythm with abnormalities PM interrogation 11/03 and demonstrates normal function with 4.5 years battery life remaining. PAF noted > 1 year ago. No recurrence. No anticoagulation indicated per Cards evaluation, however, needs to continue with q3 month PM checks Troponin is negative, however, with h/o atypical chest pain and history patient will need an outpatient stress test. Will advise him at discharge Asymptomatic BRADYCARDIA Pacemaker was interrogated again today that showed it functioned fine Low HR is due to the bigeminy and frequent ventricular ectopy case discussed with Dr. Rush that recommended not to hold the Beta russ Stable HYPERTENSION h/o FREIDA h/o stenting per EPIC records Continue metoprolol and amlodipine. Continue Toprol CL 50mg BID Will add Hydralazine 10 TID now Stable COPD Continue bronchodilators. DM TYPE 2 Hold oral agents due to acute illness / TYREL. Hgb A1C-7.8 (10/23/16) Continue insulin sliding scale Lantus / NovoLog per protocol. GOUT Continue allopurinol. CHRONIC PAIN Discussed with pt yesterday that I would not increase oxycodone to QID due to the decline in his kidney fx, Continue current management DEPRESSION/ANXIETY Pt refused psych consult VTE PROPHYLAXIS No anticoagulants due to epistaxis. SCD's. Ambulate. RESUSCITATION STATUS Full code. DISPOSITION Expected discharge to home once renal function improves to baseline 1.5. Medical follow-up with PCP, Dr. Stephenson. Total time spent on discharge = 60 minutes This includes examination of the patient, discharge planning, medication reconciliation, and communication with other providers. Discharge Instructions Pt will be transfer to [place] for possible embolization due to recurrent epistaxis Accepted hospitalist physician Dr. Baltazar Case discussed with Dr. Baltazar and ENT physician at [place]
[2016-11-12] VITALS (7 sets, daily range): BP systolic 111–155; BP diastolic 62–93; PULSE 58–62; TEMP 36.4–36.9; O2SAT 92–96
[2016-11-12] MEDS: OXYCODONE/ACETAMINOPHEN 10/325MG TAB PO SCH ×3 (05:38→21:30)
[2016-11-12] MEDS: SODIUM CHLORIDE 0.65% NA SOLN 45 ML (OCEAN) SCH ×16 (05:39→21:31)
[2016-11-12 06:54] LABS: HEMATOCRIT 36.9 % (42-52); MEAN CELL VOLUME 92.9 fL (80-100); MEAN CORPUSCULAR HGB CONC 33.3 g/dl (32-36); MEAN PLATELET VOLUME 10.8 fL (7.4-10.4); PLATELET COUNT 167 K/uL (130-400); RED BLOOD COUNT 3.97 M/uL (4.7-6.1); WHITE BLOOD COUNT 5.18 K/uL (4.8-10.8)
[2016-11-12 07:18] LABS: BUN/CREATININE RATIO 17.7 (10-20); CALCIUM 8.8 mg/dl (8.5-10.1); CREATININE 2.3 mg/dl (0.60-1.40); POTASSIUM 4.3 mmol/L (3.5-5.1)
[2016-11-12] MEDS: SODIUM CHLORIDE 0.9% 1000ML 1,000 ML IV SCH ×2 (07:50→19:07)
[2016-11-12] MEDS: LORATADINE 10 MG TAB PO SCH (09:00)
[2016-11-12] MEDS: FLUTICASONE/SALMETEROL 250/50 (ADVAIR) 14 PUFF/1 INHALER INH SCH ×2 (09:00→21:14)
[2016-11-12] MEDS: ALBUTEROL HFA 8 GM INHALER INH SCH ×4 (09:00→21:14)
[2016-11-12] MEDS: OXYMETAZOLINE HCL 0.05% NA SPR 15 ML BTL SCH ×3 (09:31→21:15)
[2016-11-12] MEDS: FENOFIBRATE 145 MG TAB PO SCH (09:34)
[2016-11-12] MEDS: HydrALAZINE 10 MG TAB PO SCH ×3 (09:34→21:17)
[2016-11-12] MEDS: ATORVASTATIN 20 MG TAB PO SCH (09:35)
[2016-11-12] MEDS: METOPROLOL SUCC 50MG EXT REL TAB PO SCH ×2 (09:35→21:19)
[2016-11-12] MEDS: ALLOPURINOL 100 MG TAB PO SCH (09:35)
[2016-11-12] MEDS: AMLODIPINE BESYLATE 5 MG TAB PO SCH (09:35)
[2016-11-12] MEDS: ALBUMIN HUMAN 25% 12.5 GM/50 ML VIAL IV SCH (09:36)
[2016-11-12] MEDS: PREGABALIN 150 MG CAP PO SCH ×2 (09:37→21:21)
[2016-11-12] MEDS: INSULIN ASPART 100 UNITS/ML 3 ML PEN SC SCH ×4 (09:38→21:27)
[2016-11-12] MEDS: INSULIN GLARGINE SOLOSTAR 100 UNITS/ML 3 ML PEN SC SCH ×2 (09:39→21:28)
--- NOTE | 2016-11-12 13:07 | Nephrology Progress Note ---
Nephrology Progress Note Date of Service: Nov 12, 2016. Subjective 66 yo male with blaze/atn of unclear etiology with presumed atn. pts creatinine continues to improve. tolerating the fluids/albumin well. continues to have nose bleeds and plans to transfer patient to [place]. pt at times is sleepy from his pain medications. Objective Date Time Temp Pulse Resp B/P Pulse Ox O2 Delivery O2 Flow Rate FiO2 11/12/16 10:37 36.4 60 16 111/62 92 Room Air 11/12/16 09:43 36.5 60 16 117/72 96 Room Air 11/12/16 07:45 Room Air 11/12/16 07:02 36.4 60 16 143/83 96 Room Air 11/12/16 05:59 155/93 11/11/16 23:55 Room Air 11/11/16 23:39 36.7 60 16 133/77 96 Room Air 11/11/16 22:41 36.6 69 20 176/107 98 Room Air 11/11/16 21:09 36.4 62 20 149/82 97 Room Air 11/11/16 20:51 62 149/82 11/11/16 17:00 Room Air 11/11/16 16:25 36.6 58 20 152/86 97 Room Air 11/11/16 16:01 36.5 60 20 169/75 95 Room Air 11/11/16 14:25 124/74 Physical Exam: General-[id number] Eyes-no scleral icterus ENT-mmm Neck-supple Lungs-cta Heart-irregularly irregularly Abdomen-bs+ s/nt/nd, +ostomy Extremities-no c/c/e Neuro-nonfocal Current Inpatient Medications Medications (Trade) Dose Ordered Sig/All Route Start Time Stop Time Status Last Admin Dose Admin Acetaminophen (Tylenol Tab) 650 mg Q4H PRN PO 11/01/16 06:00 12/01/16 05:59 Glucose (Glucose 40% Gel) 15-30 GRAMS 15 GRAMS... UD PRN PO 11/01/16 09:15 12/01/16 09:14 Glucose (Glucose Chew Tab) 4-8 Tablets 4 Tabl... UD PRN PO 11/01/16 09:15 12/01/16 09:14 Dextrose (Dextrose 50% 50ML Syringe) 25-50ML OF 50% DW IV FOR... UD PRN IV 11/01/16 09:15 12/01/16 09:14 Glucagon (Glucagon Inj) 1 mg UD PRN SQ 11/01/16 09:15 12/01/16 09:14 Albuterol (Ventolin Hfa Inhaler) 2 puffs QID INH 11/01/16 12:00 12/01/16 11:59 11/11/16 17:35 2 PUFFS Amlodipine Besylate (Norvasc Tab) 10 mg DAILY PO 11/02/16 08:00 12/01/16 07:59 11/12/16 09:35 10 MG Atorvastatin Calcium (Lipitor Tab) 20 mg DAILY PO 11/02/16 08:00 12/01/16 07:59 11/12/16 09:35 20 MG Fenofibrate (Tricor Tab) 145 mg DAILY PO 11/02/16 08:00 12/01/16 07:59 11/12/16 09:34 145 MG Salmeterol Xinafoate/ Fluticasone (Advair Diskus 250/50 Inh) 1 puff BID INH 11/01/16 20:00 12/01/16 19:59 11/09/16 08:11 1 PUFF Loratadine (Claritin Tab) 10 mg DAILY PO 11/02/16 08:00 12/01/16 07:59 11/02/16 08:15 10 MG Pregabalin (Lyrica Cap) 300 mg BID PO 11/01/16 20:00 12/01/16 19:59 11/12/16 09:37 300 MG Allopurinol (Zyloprim Tab) 100 mg DAILY PO 11/02/16 08:00 12/02/16 07:59 11/12/16 09:35 100 MG Nitroglycerin (Nitrostat Tab) 0.4 mg PRN PRN SL 11/01/16 13:15 12/01/16 13:14 Clonidine HCl (Catapres Tab) 0.1 mg Q4H PRN PO 11/01/16 13:15 12/01/16 13:14 11/11/16 22:43 0.1 MG Insulin Aspart (novoLOG ASPART) SLIDING SCALE G... ACHS SC 11/01/16 22:00 12/01/16 21:59 11/12/16 12:50 14 UNITS Oxymetazoline HCl (Afrin 0.05% Nasal [place]) 2 sprays Q12 NA 11/03/16 09:00 12/03/16 08:59 Future hold 11/12/16 09:31 2 SPRAYS Metoprolol Succinate (Toprol Xl Tab) 50 mg BID PO 11/03/16 21:00 12/03/16 20:59 11/12/16 09:35 50 MG Sodium Chloride ([place] Nasal [place]) 1 sprays Q1HWA NA 11/03/16 15:00 12/03/16 14:59 Future hold 11/12/16 09:32 1 SPRAYS Hydralazine HCl (Apresoline Tab) 10 mg TID PO 11/04/16 21:00 12/04/16 20:59 11/12/16 09:34 10 MG Oxycodone/ Acetaminophen (Percocet 10-325MG Tab) 1 tab Q8H PO 11/07/16 06:00 11/21/16 05:59 11/12/16 05:38 1 TAB Insulin Glargine see protocol text BID SC 11/08/16 21:00 12/08/16 20:59 11/12/16 09:39 12 UNIT Sodium Chloride (Nss 1000ml) 1,000 ml @ 100 mls/hr Q10H IV 11/09/16 10:45 12/09/16 10:44 11/12/16 07:50 100 MLS/HR Albumin Human (Albumin 25%) 12.5 gm BID IV 11/09/16 21:00 11/12/16 20:59 11/12/16 09:36 12.5 GM Diazepam (Valium Tab) 10 mg Q12 PRN PO 11/09/16 21:00 12/09/16 20:59 11/11/16 23:24 10 MG Oxymetazoline HCl (Afrin 0.05% Nasal [place]) 2 sprays TODAY@1730 NA 11/11/16 17:30 12/11/16 17:29 11/11/16 17:31 2 SPRAYS Last 24 Hours Test 11/11/16 17:05 11/11/16 20:47 11/12/16 06:27 11/12/16 08:08 Bedside Glucose 113 mg/dl 148 mg/dl 104 mg/dl White Blood Count 5.18 K/uL Red Blood Count 3.97 M/uL Hemoglobin 12.3 g/dL Hematocrit 36.9 % Mean Corpuscular Volume 92.9 fL Mean Corpuscular Hemoglobin 31.0 pg Mean Corpuscular Hemoglobin Concent 33.3 g/dl RDW Standard Deviation 46.5 fL RDW Coefficient of Variation 13.6 % Platelet Count 167 K/uL Mean Platelet Volume 10.8 fL Sodium Level 143 mmol/L Potassium Level 4.3 mmol/L Chloride Level 112 mmol/L Carbon Dioxide Level 21 mmol/L Anion Gap 10.0 mmol/L Blood Urea Nitrogen 41 mg/dl Creatinine 2.30 mg/dl Est Creatinine Clear Calc Drug Dose 41.2 ml/min Estimated GFR () 33.5 Estimated GFR (Non- 28.9 BUN/Creatinine Ratio 17.7 Random Glucose 88 mg/dl Calcium Level 8.8 mg/dl Test 11/12/16 11:50 Bedside Glucose 227 mg/dl Assessment & Plan [id number]. pacemaker working well. creatinine now down to 2.2 but at times varies quite a bit. would like to check anca to be thorough with the blaze of unclear etiology and the recurrent nose bleeds. perhaps has an underlying vasculitis although would expect to see blood in the urine. the other option we were considering was doing an angiogram to screen for renal artery stenosis even with normal dopplers. however, creatinine is improving with appropriate fluid resuscitation. does have history of chf so monitoring volume status closely. on normal saline at 100cc/hr and albumin 12.5 grams bid.
--- NOTE | 2016-11-12 17:08 | Progress Note ---
Internal Med Progress Note Date of Service: Nov 12, 2016. Provider Documentation: SUBJECTIVE: Patient c/o fatigue. No more episodes of nasal bleeding since yesterday. No SOB, chest pain, palpitations. Awaiting transfer to [facility] OBJECTIVE: Vital Signs-as noted below Exam: General- No respiratory distress, irritated ENT- no blood in nostril Neck- supple, no JVD Lungs- clear to auscultation and percussion Heart- no murmur Abdomen- normal bowel sounds, soft, +ostomy bag Extremities-no calf tenderness Neuro- alert, oriented x 3 Lab data as noted below. ASSESSMENT & PLAN: ACUTE KIDNEY INJURY : Improving CKD III with baseline creatinine around 1.5. Creatinine on admission was 3.43, then trending to 2.9-->2.6-->2.7 -->2.5 --> 2.5 --> 2.7-->3.1--2.8--3.2--.2.5-->2.7-->2.30 today TYREL may be due to volume depletion from combination of ileostomy output + diuretic therapy vs ATN -Diuretic held -Nephrology on board. ANCA ordered per nephrology, considered renal artery angiogram though normal dopplers to rule out renal artery stenosis but as creatinine improved it was deferred. EPISTAXIS : 2 recent episodes of severe epistaxis prior to transfer to [facility]-->Right nostril cauterized / packed in [place] ED-->Pulled on 11/03 and uneventful for 24 hours -Dr Bentley placed floseal and surgicel on 11/09/16. Had more episodes of nose bleedings on 11/11/16 which stopped after applying pressure -S/P Doxycycline to cover staph/strep while nasal packing in place -- discontinued on 11/09/16 -Hold aspirin - restart when OK with ENT (Dr. Victor Manuel Teixeira) -Continue with Afrin Sprays in affected nostril after each episode of epistaxis/ humidified oxygen per Dr Fernandez. -Due to recurrent bleeds, ENT recommended transfer to [facility] which was done yesterday, but awaiting bed availability -Accepting hospitalist physician is Dr. Baltazar SHORTNESS OF BREATH: -Possible related to diastolic heart failure -recent treatment with Demedex caused ARF, so diuretics are on hold at this point -CXR showed moderate stable cardiomegaly. No current evidence for congestive failure Stable ETOH USE [place] use of benzodiazepines as needed Dr Gerber reviewed his oupt chart, he was getting the valium at HS Pt said that he is been taking the valium TID, and he is been on it since 1973 He said that he usually got them from the street -Continue valium 10mg to BID prn CORONARY ARTERY DISEASE Atypical chest pain prior to admission- s/p CABG in 2015 -Hold aspirin due to epistaxis -Continue metoprolol and amlodipine. -Repeat EKG reveals paced rhythm with abnormalities -PM interrogation 11/03 and demonstrates normal function with 4.5 years battery life remaining. PAF noted > 1 year ago. No recurrence. -No anticoagulation indicated per Cards evaluation, however, needs to continue with q3 month PM checks -Troponin is negative, however, with h/o atypical chest pain and history patient will need an outpatient stress test. BRADYCARDIA Pacemaker was interrogated on 11/12/16 that showed it functioned fine Low HR is due to the bigeminy and frequent ventricular ectopy case discussed by Dr Gerber with Dr. Rush that recommended not to hold the Beta russ Stable HYPERTENSION h/o FREIDA h/o stenting per EPIC records -Continue metoprolol and amlodipine. -Continue Toprol CL 50mg BID -Hydralazine 10 mg TID added this admission -Stable COPD -Continue bronchodilators. DM TYPE 2 Hold oral agents due to acute illness / TYREL. Hgb A1C-7.8 (10/23/16) -Continue insulin sliding scale -Lantus / NovoLog per protocol. GOUT -Continue allopurinol. CHRONIC PAIN -Continue current management DEPRESSION/ANXIETY -Pt refused psych consult VTE PROPHYLAXIS -No anticoagulants due to epistaxis. -SCD's. -Ambulate. RESUSCITATION STATUS -Full code. DISPOSITION Patient was transferred to [facility] yesterday but awaiting bed availability Medical follow-up with PCP, Dr. Stephenson. Total time spent on discharge = 60 minutes Vital Signs: Date Time Temp Pulse Resp B/P Pulse Ox O2 Delivery O2 Flow Rate FiO2 11/12/16 16:18 36.6 61 18 119/75 94 Room Air 11/12/16 10:37 36.4 60 16 111/62 92 Room Air 11/12/16 09:43 36.5 60 16 117/72 96 Room Air 11/12/16 07:45 Room Air 11/12/16 07:02 36.4 60 16 143/83 96 Room Air 11/12/16 05:59 155/93 11/11/16 23:55 Room Air 11/11/16 23:39 36.7 60 16 133/77 96 Room Air 11/11/16 22:41 36.6 69 20 176/107 98 Room Air 11/11/16 21:09 36.4 62 20 149/82 97 Room Air 11/11/16 20:51 62 149/82 11/11/16 17:00 Room Air Lab Results: Results Past 24 Hours Test 11/11/16 17:05 11/11/16 20:47 11/12/16 06:27 11/12/16 08:08 Range/Units Bedside Glucose 113 148 104 70-99 mg/dl White Blood Count 5.18 4.8-10.8 K/uL Red Blood Count 3.97 4.7-6.1 M/uL Hemoglobin 12.3 14.0-18.0 g/dL Hematocrit 36.9 42-52 % Mean Corpuscular Volume 92.9 80-100 fL Mean Corpuscular Hemoglobin 31.0 25-34 pg Mean Corpuscular Hemoglobin Concent 33.3 32-36 g/dl RDW Standard Deviation 46.5 36.4-46.3 fL RDW Coefficient of Variation 13.6 11.5-14.5 % Platelet Count 167 130-400 K/uL Mean Platelet Volume 10.8 7.4-10.4 fL Sodium Level 143 136-145 mmol/L Potassium Level 4.3 3.5-5.1 mmol/L Chloride Level 112 98-107 mmol/L Carbon Dioxide Level 21 21-32 mmol/L Anion Gap 10.0 3-11 mmol/L Blood Urea Nitrogen 41 7-18 mg/dl Creatinine 2.30 0.60-1.40 mg/dl Est Creatinine Clear Calc Drug Dose 41.2 ml/min Estimated GFR () 33.5 Estimated GFR (Non- 28.9 BUN/Creatinine Ratio 17.7 10-20 Random Glucose 88 70-99 mg/dl Calcium Level 8.8 8.5-10.1 mg/dl Test 11/12/16 11:50 Range/Units Bedside Glucose 227 70-99 mg/dl
[2016-11-13] MEDS: SODIUM CHLORIDE 0.65% NA SOLN 45 ML (OCEAN) SCH ×2 (04:42→06:00)
[2016-11-13] MEDS: SODIUM CHLORIDE 0.9% 1000ML 1,000 ML IV SCH (04:56)
[2016-11-13] MEDS: DIAZEPAM 5MG TAB PO PRN (04:56)
[2016-11-13] MEDS: OXYCODONE/ACETAMINOPHEN 10/325MG TAB PO SCH (06:20)
[2016-11-13 06:30] VITALS: BP 161/97; PULSE 63; TEMP 36.4; O2SAT 98
[2016-11-13] MEDS: INSULIN ASPART 100 UNITS/ML 3 ML PEN SC SCH (07:59)
[2016-11-13] MEDS: INSULIN GLARGINE SOLOSTAR 100 UNITS/ML 3 ML PEN SC SCH (08:01)
[2016-11-13] MEDS: HydrALAZINE 10 MG TAB PO SCH (08:03)
[2016-11-13] MEDS: AMLODIPINE BESYLATE 5 MG TAB PO SCH (08:04)
[2016-11-13] MEDS: ATORVASTATIN 20 MG TAB PO SCH (08:04)
[2016-11-13] MEDS: ALLOPURINOL 100 MG TAB PO SCH (08:05)
[2016-11-13] MEDS: METOPROLOL SUCC 50MG EXT REL TAB PO SCH (08:05)
[2016-11-13] MEDS: FENOFIBRATE 145 MG TAB PO SCH (08:05)
[2016-11-13] MEDS: PREGABALIN 150 MG CAP PO SCH (08:07)
[2016-11-13 08:11] VITALS: BP 161/97; PULSE 63; TEMP 36.4; O2SAT 98
== END 2016-11-13 08:10 | disposition short-term general hospital (02) | DRG 683 ==
LOC: ENRESERVDT → ENRESERVTM → CANRESERV → UNDOADMIN 11-01 04:47 → C.MS4W 11-01 04:47 → EDBEDREQ 11-02 19:08 → C.MS4W 11-02 20:24 → C.2T 11-02 20:24 → C.MSW 11-05 21:51
PROVIDERS: ADMIT Hospitalist; ATTEND Internal Medicine
DX: N17.0 Acute kidney failure with tubular necrosis (principal); I13.0 Hypertensive heart and chronic kidney disease with heart failure and stage 1 through stage 4 chronic kidney disease, or unspecified chronic kidney disease; I50.30 Unspecified diastolic (congestive) heart failure; R04.0 Epistaxis; E11.9 Type 2 diabetes mellitus without complications; F41.9 Anxiety disorder, unspecified; G89.29 Other chronic pain; N18.3 Chronic kidney disease, stage 3 (moderate); J44.9 Chronic obstructive pulmonary disease, unspecified; M10.9 Gout, unspecified; F32.9 Major depressive disorder, single episode, unspecified; I48.0 Paroxysmal atrial fibrillation; I25.10 Atherosclerotic heart disease of native coronary artery without angina pectoris; F10.10 Alcohol abuse, uncomplicated; F17.200 Nicotine dependence, unspecified, uncomplicated; I73.9 Peripheral vascular disease, unspecified; I70.1 Atherosclerosis of renal artery; I49.5 Sick sinus syndrome; Z95.0 Presence of cardiac pacemaker; Z95.1 Presence of aortocoronary bypass graft; Z93.2 Ileostomy status; E78.5 Hyperlipidemia, unspecified; Z93.3 Colostomy status; Z79.82 Long term (current) use of aspirin